=== PATIENT | female | born 1950 | race Caucasian/White ===

== ENCOUNTER → 2018-05-30 14:41 | Outpatient (CLI) | payer OTHER, MEDICAID, SELFPAY ==
--- NOTE | 2018-05-30 14:48 | DI.ECHO.S_ITS ---
[facility] +---------+ : : [address] : : : : [id number] : : : : Phone: [phone] Echocardiogram Report + + :Name: RYAN SKY Study Date: 05/30/2018 Height: 68 in : :[facility] Weight: 165 lb : : Gender: Female BSA: 1.9 m2 : :: 1950 Age: 67 yrs BP: 124/82 mmHg: :Reason For Study: SWELLING OF BOTH ANKLES, FAMILY HX OF HEART : :FAILURE : :Ordering Physician: Bryon : :Desmond Performed By: Adele Liu : :Referring: BRYON CUNNINGHAM : + + Interpretation Summary The left ventricle is normal in size. The ejection fraction is estimated to be 60-65%. The right ventricle is normal size. The right ventricular systolic function is normal. There is mild mitral regurgitation. The right ventricular systolic pressure is estimated to be at least 25 mmHg based on an estimated right atrial pressure of 3 mm Hg. The ascending aorta is mildly enlarged. Procedure: A two-dimensional transthoracic echocardiogram with color flow and Doppler was performed. The study quality was technically adequate. There is no prior echocardiogram noted for this patient. The patient was in normal sinus rhythm during the exam. Left Ventricle: The left ventricle is normal in size. Proximal septal thickening is noted. There is no echo evidence for significant left ventricular outflow tract obstruction. There is no thrombus. The ejection fraction is estimated to be 60-65%. There are no focal wall motion abnormalities. MV E/A: 0.96 Med Peak E' Jp: 4.6 cm/sec E/E' med: 17.3. Right Ventricle: The right ventricle is normal size. The right ventricular systolic function is normal. Atria: The left atrial size is normal. Right atrial size is normal. A prominent eustachian valve is noted. There is no Doppler evidence for an interatrial shunt. The atrial septum is aneurysmal. Mitral Valve: There is mild mitral annular calcification. Redundant elongated chordae are noted. There is mild mitral regurgitation. Aortic Valve: The aortic valve is trileaflet. The aortic valve opens well. There is no aortic valve stenosis. There is trace aortic regurgitation. Tricuspid Valve: The tricuspid valve is normal. There is trace tricuspid regurgitation. The right ventricular systolic pressure is estimated to be at least 25 mmHg based on an estimated right atrial pressure of 3 mm Hg. Pulmonic Valve: The pulmonic valve is not well seen, but is grossly normal. There is trace pulmonic regurgitation. Great Vessels: The aortic root is normal size. The ascending aorta is mildly enlarged. The aortic arch is mildly enlarged. The pulmonary artery is normal size. The IVC is of normal diameter and collapses greater than 50% with a sniff. This suggests a low right atrial pressure of 3 mm Hg. Pericardium/ Pleura There is no pericardial effusion. There is no pleural effusion. MMode/2D Measurements & Calculations LVIDd: 4.1 cm LVOT diam: 2.3 cm LVIDs: 2.5 cm Ao root diam: 3.9 cm FS: 39.4 % asc Aorta Diam: 3.8 cm EPSS: 0.10 cm Ao Arch Diam (Prox Trans): 3.4 cm IVSd: 0.84 cm LVPWd: 0.81 cm LV hill. diameter/BSA (cm/m^2): 2.2 LV sys. diameter/BSA (cm/m^2): 1.3 LA A2 area: 20.3 cm2 RA long axis: 4.6 cm LA A4 area: 16.7 cm2 RA area: 14.1 cm2 LA length (vol): 5.2 cm RA vol: 36.8 ml LA vol: 55.9 ml RA : 19.5 ml/m2 LA vol index: 29.7 ml/m2 IVC diam: 1.9 cm TAPSE: 1.5 cm Doppler Measurements & Calculations Ao V2 max: 110.8 cm/sec LVOT Max Jp: 74.3 cm/sec Ao V2 mean: 81.5 cm/sec LV V1 max P.2 mmHg Ao max P.9 mmHg LV V1 VTI: 16.4 cm Ao mean P.9 mmHg NAT(I,D): 3.0 cm2 Ao V2 VTI: 23.1 cm NAT(V,D): 2.8 cm2 sev ratio: 0.71 NAT indexed to BSA (cm^2/m^2): 1.6 MV E max jp: 80.2 cm/sec TR max jp: 232.5 cm/sec MV A max jp: 83.3 cm/sec TR max P.6 mmHg MV E/A: 0.96 PA V2 max: 59.2 cm/sec Med Peak E' Jp: 4.6 cm/sec PA V2 mean: 36.5 cm/sec E/E' med: 17.3 PA mean P.69 mmHg Lat Peak E' Jp: 6.7 cm/sec PA pr(Accel): 34.1 mmHg E/E' lat: 11.9 E/e' average: 14.6 MV dec time: 0.21 sec Reading Physician:IMELDA
== END ==
PROVIDERS: PCP Family Medicine; Visit Provider Family Medicine
DX: I34.0 Nonrheumatic mitral (valve) insufficiency (principal); M25.471 Effusion, right ankle; M25.472 Effusion, left ankle; Z82.49 Family history of ischemic heart disease and other diseases of the circulatory system
CPT/HCPCS: 93306

== ENCOUNTER → 2019-03-07 07:20 | Outpatient (CLI) | payer OTHER, SELFPAY ==
[2019-03-07 09:02] LABS: Alanine Aminotransferase 8 IU/L (9-52); Albumin 4.1 g/dL (3.5-5.0); Albumin Globulin Ratio 1.4 (1.0-2.8); Alkaline Phosphatase 67 U/L (38-126); Aspartate Aminotransferase 23 IU/L (14-36); Bilirubin Total 0.7 mg/dL (0.2-1.3); Blood Urea Nitrogen 9 mg/dL (7-17); Carbon Dioxide 28 mmol/L (22-32); Chloride 95 mmol/L (98-107); Cholesterol 238 mg/dL (140-199); Estimated Glomerular Filt Rate > 60.0 mL/min (>60); Globulin 2.9 g/dL (1.7-4.1); Glucose 83 mg/dL (80-110); HDL Cholesterol 88 mg/dL (40-60); HEMOLYSIS < 15 (0-50); LDL Cholesterol Calculated 132 mg/dL (<100); Potassium 4.7 mmol/L (3.4-5.1); Sodium 131 mmol/L (137-145); Triglycerides 88 mg/dL (35-150)
[2019-03-07 09:13] LABS: Add Manual Diff / Slide Review NO; Basophils Absolute Auto 100 /uL (0-100); Basophils Percent Auto 1.3 % (0-2); Eosinophils Absolute Auto 200 /uL (0-450); Eosinophils Percent Auto 5.3 % (2-4); Hemoglobin 12.3 g/dL (12.0-16.0); Lymphocytes Absolute Auto 1600 /uL (1100-4500); Lymphocytes Percent Auto 39.8 % (25-40); Mean Corpuscular HGB Conc 33.2 % (30-36); Mean Corpuscular Hemoglobin 31.5 PG (26-34); Mean Corpuscular Volume 94.8 fL (80-100); Monocytes Absolute Auto 300 /uL (0-900); Monocytes Percent Auto 8.3 % (3-14); Neutrophils Absolute Auto 1900 /uL (1500-7000); Neutrophils Percent Auto 45.3 % (50-75); Platelet Count 328 X10^3/uL (150-400); Red Blood Cell Count 3.91 X10^6/uL (4.0-5.2); Red Cell Distribution Width 12.1 % (11.6-14.8); White Blood Cell Count 4.1 X10^3/uL (4.5-11.0)
== END ==
PROVIDERS: PCP Family Medicine; Visit Provider Family Medicine
DX: Z13.220 Encounter for screening for lipoid disorders (principal); R60.0 Localized edema
CPT/HCPCS: 36415; 80053; 80061; 85025

== ENCOUNTER 2020-02-03 19:05 | Emergency (ER) | payer MEDICARE, MEDICAID, SELFPAY ==
[2020-02-03] VITALS (13 sets, daily range): BP systolic 144–164; BP diastolic 75–96; PULSE 79–102; RESP 10–40; TEMP 36.8; O2SAT 97–99; BMI 27.3
--- NOTE | 2020-02-03 19:16 | DI.CT.S_ITS ---
PROCEDURE: CT HEAD/BRAIN WO CON INDICATIONS: stroke symptoms, dizzy, blurred vision TECHNIQUE: Noncontrast 4.5 mm thick angled axial sections acquired from the foramen magnum to the vertex, with coronal and sagittal reformats. For radiation dose reduction, the following was used: automated exposure control, adjustment of mA and/or kV according to patient size. COMPARISON: None. FINDINGS: Image quality: Excellent. CSF spaces: Basal cisterns are patent. No extra-axial fluid collections. The ventricles are symmetric in size and shape. Brain: No intracranial bleeds or masses. There is cerebral volume loss for age, with resultant ventricular and sulcal prominence. There are periventricular and deep white matter chronic small vessel ischemic changes. There is intracranial internal carotid artery atherosclerosis. Skull and face: Calvarium and visualized facial bones appear intact, without suspicious lesions. Sinuses: Visualized sinuses and mastoids are clear. IMPRESSION: No acute intracranial finding. Dictated by: Robbi Spivey M.D. on 02/03/2020 at 19:46 Approved by: Robbi Spivey M.D. on 02/03/2020 at 19:48
[2020-02-03 19:30] LABS: Add Manual Diff / Slide Review NO; Basophils Absolute Auto 100 /uL (0-100); Basophils Percent Auto 1.1 % (0-2); Eosinophils Absolute Auto 200 /uL (0-450); Eosinophils Percent Auto 3.5 % (2-4); Hematocrit 36.1 % (36-46); Hemoglobin 12.2 g/dL (12.0-16.0); Lymphocytes Absolute Auto 2100 /uL (1100-4500); Lymphocytes Percent Auto 36.7 % (25-40); Mean Corpuscular HGB Conc 33.8 % (30-36); Mean Corpuscular Hemoglobin 31.8 PG (26-34); Monocytes Absolute Auto 400 /uL (0-900); Monocytes Percent Auto 7.5 % (3-14); Neutrophils Absolute Auto 3000 /uL (1500-7000); Neutrophils Percent Auto 51.2 % (50-75); Platelet Count 338 X10^3/uL (150-400); Red Blood Cell Count 3.84 X10^6/uL (4.0-5.2); Red Cell Distribution Width 12.4 % (11.6-14.8); White Blood Cell Count 5.8 X10^3/uL (4.5-11.0)
[2020-02-03 19:36] LABS: Prothrombin Time 11.8 SECONDS (10.1-12.7)
--- NOTE | 2020-02-03 19:36 | ED.NEUROSD ---
HPI - Neuro Symptoms/Deficit General Chief Complaint: Neuro Symptoms/Deficit Stated Complaint: dizziness,vision changes,equilibrium off Time Seen by Provider: 02/03/20 19:09 Source: patient Mode of arrival: Wheelchair Limitations: no limitations History of Present Illness HPI Narrative: 69F former smoker with history of peripheral neuropathy and Gino's esophagus presents with the chief complaint of dizziness, blurred vision and trouble with ambulation since yesterday. She additionally has urinary frequency, urgency, and dysuria. She denies focal findings such as numbness, tingling, or weakness. She's had no fever or chills. She denies N/V/D. She denies any new meds or dietary change. She's had no trauma or injury. Her symptoms started yesterday. She was evaluated on scene by medics and encuraged to come here for evaluation Onset (ago): day(s) Timing confirmed by: family member Location: at[place]ia History of same: No Severity: mild Quality: weak and constant Relieving factors: none Exacerbating factors: none On Anticoagulants: No Treatments Prior to Arrival: none Related Data Home Medications Medication Instructions Recorded Confirmed latanoprost [Xalatan] 1 drp OU HS #0 01/27/17 04/06/19 Previous Rx's Medication Instructions Recorded Disabled Parking Permit units #1 05/18/16 timolol maleate 0.5 % eye drops 1 drp EYE-BOTH BID #15 ml 11/07/18 ketoconazole 2 % topical cream 1 applictn TOPICAL BID #30 gram 09/19/19 pantoprazole 40 mg tablet,delayed 40 mg PO DAILY #90 tab 10/08/19 release furosemide 20 mg tablet See Rx Instructions .ROUTE 01/01/20 .COMPLEX #30 tablet Allergies Allergy/AdvReac Type Severity Reaction Status Date / Time morphine [MORPHINE] AdvReac Unknown ITCHY Unverified 04/06/19 13:29 Review of Systems Constitutional Constitutional: Denies chills, Denies fatigue, Denies fever(s), Denies frequent falls, Denies lethargy and Denies weakness Eyes Eyes: Reports change in vision, Denies eye discharge, Denies irritation and Denies loss of vision ENT Ears, Nose, Mouth, and Throat: Denies change in voice, Reports dizziness, Denies neck pain, Denies sore throat and Denies throat swelling Cardiovascular Cardiovascular: Denies chest pain, Denies irregular heart rhythm, Denies lightheadedness, Denies palpitations, Denies dyspnea, Denies dyspnea on exertion and Denies orthopnea Respiratory Respiratory: Denies cough, Denies dyspnea, Denies dyspnea on exertion and Denies wheezing Gastrointestinal Gastrointestinal: Denies abdominal pain, Denies change in bowel habits, Denies diarrhea, Denies nausea and Denies vomiting Musculoskeletal Musculoskeletal: Denies neck pain and Denies numbness Integumentary/Breasts Skin/Breast: Denies pruritus, Denies erythema, Denies rash and Denies wounds Neurologic Neurologic: Denies behavioral changes, Denies confusion, Reports dizziness, Denies frequent falls, Denies loss of vision, Denies numbness and Denies weakness Psychiatric Psychiatric: Denies anxiety, Denies behavioral changes, Denies confusion, Denies depression, Denies homicidal ideation and Denies suicidal ideation Endocrine Endocrine: Denies fatigue, Denies flushing and Denies palpitations Hematologic/Lymphatic Hematologic/Lymphatic: Denies easy bruising Allergic/Immunologic Allergic/Immunologic: Denies urticaria, Denies throat swelling and Denies wheezing Patient History Medical History Barretts esophagus (Chronic) Tbkpgxl-Jgwnz-Qqlfv disease (Chronic) Colon polyps (Chronic) Surgical History History of knee replacement History of knee replacement Status post cholecystectomy Status post colonoscopy Status post endoscopy Status post hernia repair (08/11/89) Status post hysterectomy Family History Father Heart disease Hypertension High cholesterol Stomach cancer Stroke Grandfather CVA (cerebral infarction) Mother Cancer of breast Social History marital status: lives independently: Yes education level: master's degree occupational status: other (retired) Smoking Status: Former smoker Smoking Status: Former smoker alcohol intake frequency: 0-2 drinks per day Substance Use Type: does not use Exam Narrative Exam Narrative: GENERAL: [69] year old patient appears stated age. Well-nourished, well-developed patient, in mild distress. HEAD: Atraumatic. Normocephalic. EYES: Pupils equal round and reactive. Extraocular motions intact. No scleral icterus. No injection or drainage. Pressures OS 14, OD 18 ENT: Nose without bleeding, purulent drainage. Throat without erythema, tonsillar hypertrophy or exudate. Airway patent. NECK: Trachea midline. Non tender CARDIOVASCULAR: Regular rate and rhythm without murmurs, gallops, or rubs. RESPIRATORY: Clear to auscultation. Breath sounds equal bilaterally. No wheezes, rales, or rhonchi. GASTROINTESTINAL: Abdomen soft, non-tender, nondistended. EXTREMITIES: No edema or joint tenderness. BACK: Nontender without deformity or crepitance. No flank tenderness. NEURO: AOx3. SKIN: No rash or erythema of visible areas NIH Stroke Scale 1a. LOC: Patient is alert and keenly responsive (0) 1b. LOC Questions: Patient answers both LOC questions accurately (0) 1c. LOC Commands: Patient performs both tasks correctly (0) 2. Best Gaze: Normal (0) 3. Visual: No visual loss (0) 4. Facial palsy: Normal symmetrical movements (0) 5. Motor arm: No drift (0) 6. Motor leg: No drift (0) 7. Limb ataxia: Absent (0) 8. Sensory: Normal (0) 9. Best language: No aphasia; normal (0) 10. Dysarthria: Normal (0) 11. Extinction and inattention: No abnormality (0) NIHSS: 0 Initial Vital Signs Initial Vital Signs: Vital Signs Blood Pressure 164/96 H 02/03/20 19:15 Course Orders Ordered: Discontinued Medications Sodium Chloride (Normal Saline 0.9%) 1,000 mls @ 150 mls/hr IV CONT ASHLEY Last Admin: 02/03/20 19:36 Dose: Not Given Documented by: LUZ Proparacaine HCl (Parcaine 0.5% Ophth Makayla) 1 drops EYE-BOTH NOW ONE Stop: 02/03/20 21:15 Last Admin: 02/03/20 21:21 Dose: 2 drop Documented by: LUZ Vital Signs Vital signs: Vital Signs - 8 hr 02/03/20 22:44 Respiratory Rate 16 Blood Pressure 162/83 H Pulse Oximetry 97 MDM - Neuro Symptoms/Deficit Lab Data Result diagrams: 02/03/20 19:15 02/03/20 19:15 Labs: Lab Results 02/03/20 02/03/20 02/03/20 Range/Units 19:15 19:15 19:15 WBC 5.8 (4.5-11.0) X10^3/uL RBC 3.84 L (4.0-5.2) X10^6/uL Hgb 12.2 (12.0-16.0) g/dL Hct 36.1 (36-46) % MCV 94.0 (80-100) fL MCH 31.8 (26-34) PG MCHC 33.8 (30-36) % RDW 12.4 (11.6-14.8) % Plt Count 338 (150-400) X10^3/uL Neut % (Auto) 51.2 (50-75) % Lymph % (Auto) 36.7 (25-40) % [place] % (Auto) 7.5 (3-14) % Eos % (Auto) 3.5 (2-4) % Baso % (Auto) 1.1 (0-2) % Neut # (Auto) 3000 (6504-6073) /uL Lymph # (Auto) 2100 (0523-8224) /uL [place] # (Auto) 400 (0-900) /uL Eos # (Auto) 200 (0-450) /uL Baso # (Auto) 100 (0-100) /uL PT 11.8 (10.1-12.7) SECONDS INR 1.0 (0.9-1.3) APTT 31 (26.4-36.2) SECONDS Sodium 129 L (137-145) mmol/L Potassium 4.0 (3.4-5.1) mmol/L Chloride 94 L (98-107) mmol/L Carbon Dioxide 27 (22-32) mmol/L BUN 10 (7-17) mg/dL Creatinine 0.45 L (0.52-1.04) mg/dL Estimated GFR > 60.0 (>60) mL/min BUN/Creatinine Ratio 22.2 H (6-22) Glucose 124 H (80-110) mg/dL Calcium 9.6 (8.4-10.2) mg/dL Urine Dip Bedside Urine Glucose Negative Bedside Urine Bilirubin - Negative Bedside Urine Ketone - Negative Urine Specific [place] 1.005 Bedside Urine Occult Blood - Negative Bedside Urine pH 7.0 Bedside Urine Protein - Negative Bedside Urine Urobilinogen - Negative Bedside Urine Nitrite - Negative Bedside Urine Leukocytes - Negative Esterase MDM Narrative Medical decision making narrative: Multiple etiologies for patient's symptoms considered including: [Stroke versus electrolyte abnormality versus stress reaction versus other] Patient's symptoms improved over duration of stay with above-stated therapies. Findings and discharge diagnosis discussed with patient/family followed by verbalization of understanding Return precautions discussed with patient/family whom verbalize understanding. Discharge Plan Departure Patient Disposition: Home Clinical Impression: Feared complaint without diagnosis, Change in vision Discharge Date/Time: 02/03/20 22:47 Instructions: DI for Visual Field Disturbances Activity Restrictions/Additional Instructions: *You have been diagnosed with [ stress response, vision change. ] *What to do: *Take medications as directed *Follow up with your primary care provider in 2-3 days, call for an appointment. Let them know you were seen in the Emergency Department and that we ask that you be seen in follow up *Return to ER if you should have any new, worsening or concerning symptoms Prescriptions: No Action Disabled Parking Permit Qty: 1 RF: 0 latanoprost [Xalatan] 0.005 % drops 1 drp OU HS Qty: 0 RF: 0 timolol maleate 0.5 % drops 1 drp EYE-BOTH BID Qty: 15 RF: 4 ketoconazole 2 % cream 1 applictn Topical BID Qty: 30 RF: 0 pantoprazole 40 mg tablet,delayed release (DR/EC) 40 mg PO DAILY Qty: 90 RF: 0 furosemide 20 mg tablet See Rx Instructions .ROUTE .COMPLEX Qty: 30 RF: 3 Referrals: Carmen Adame DO [Primary Care Provider] -
[2020-02-03 19:39] LABS: PTT Partial Thromboplastin Tim 31 SECONDS (26.4-36.2)
[2020-02-03 19:40] LABS: BUN Creatinine Ratio 22.2 (6-22); Blood Urea Nitrogen 10 mg/dL (7-17); Calcium 9.6 mg/dL (8.4-10.2); Carbon Dioxide 27 mmol/L (22-32); Chloride 94 mmol/L (98-107); Estimated Glomerular Filt Rate > 60.0 mL/min (>60); Glucose 124 mg/dL (80-110); HEMOLYSIS < 15 (0-50); Sodium 129 mmol/L (137-145)
[2020-02-03] MEDS: PROPARACAINE 0.5% OPHTH SOL 1 DROPS EYE-BOTH (21:21)
--- NOTE | 2020-02-03 21:28 | PC.NURSE ---
Pt states that over the last few days she has had increased blurry vision and has stopped taking her glaucoma meds. pt state she has also been under alot of stress with her sons coming to live [place] with her and increased anxiety. Collin-Pen used by Dr Haywood and- 13 R eye and 18 L eye. Pt examined by Dr Haywood and pt has no loss in any visual field.
--- NOTE | 2020-02-03 21:57 | PC.NURSE ---
Report given to Toribio Cruz, RN
== END 2020-02-03 22:47 | disposition home or self-care (01) ==
PROVIDERS: Emergency Provider Emergency Medicine; PCP Family Medicine
DX: H53.9 Unspecified visual disturbance (principal); R42 Dizziness and giddiness; R30.0 Dysuria; R29.818 Other symptoms and signs involving the nervous system
CPT/HCPCS: 36415; 70450; 80048; 81003; 85025; 85610; 85730; 93005; 99284; 99285

== ENCOUNTER → 2021-12-08 08:19 | Outpatient (CLI) | payer MEDICARE, MEDICAID, SELFPAY ==
[2021-12-08 08:55] LABS: Add Manual Diff / Slide Review NO; Basophils Absolute Auto 100 /uL (0-100); Basophils Percent Auto 0.8 % (0-2); Eosinophils Absolute Auto 100 /uL (0-450); Eosinophils Percent Auto 1.6 % (2-4); Hematocrit 37.2 % (36-46); Hemoglobin 12.6 g/dL (12.0-16.0); Lymphocytes Absolute Auto 1800 /uL (1100-4500); Lymphocytes Percent Auto 24.9 % (25-40); Mean Corpuscular HGB Conc 33.9 % (30-36); Mean Corpuscular Volume 91.3 fL (80-100); Monocytes Absolute Auto 300 /uL (0-900); Monocytes Percent Auto 4.6 % (3-14); Neutrophils Absolute Auto 5000 /uL (1500-7000); Neutrophils Percent Auto 68.1 % (50-75); Platelet Count 326 X10^3/uL (150-400); Red Blood Cell Count 4.08 X10^6/uL (4.0-5.2); Red Cell Distribution Width 12.8 % (11.6-14.8); White Blood Cell Count 7.3 X10^3/uL (4.5-11.0)
[2021-12-08 09:14] LABS: Alanine Aminotransferase 15 IU/L (<35); Albumin 4.1 g/dL (3.5-5.0); Albumin Globulin Ratio 1.5 (1.0-2.8); Alkaline Phosphatase 87 U/L (38-126); Aspartate Aminotransferase 25 IU/L (14-36); Bilirubin Total 0.7 mg/dL (0.2-1.3); Blood Urea Nitrogen 12 mg/dL (7-17); Calcium 9.6 mg/dL (8.4-10.2); Carbon Dioxide 26 mmol/L (22-32); Chloride 99 mmol/L (98-107); Estimated Glomerular Filt Rate > 60 mL/min (>60); Globulin 2.8 g/dL (1.7-4.1); Glucose 88 mg/dL (80-110); HEMOLYSIS < 15 (0-50); Potassium 4.8 mmol/L (3.4-5.1); Sodium 132 mmol/L (137-145); Total Protein 6.9 g/dL (6.3-8.2)
== END ==
PROVIDERS: PCP Family Medicine; Referring Provider Family Medicine; Visit Provider Family Medicine
DX: R73.09 Other abnormal glucose (principal); K22.70 Barrett's esophagus without dysplasia; N28.9 Disorder of kidney and ureter, unspecified
CPT/HCPCS: 36415; 80053; 85025

== ENCOUNTER 2022-05-18 07:50 | Day surgery (SDC) | payer MEDICARE, MEDICAID, SELFPAY ==
[2022-05-13 15:13] VITALS: BMI 23.8
[2022-05-18] VITALS (8 sets, daily range): BP systolic 112–150; BP diastolic 73–84; PULSE 75–85; RESP 13–21; TEMP 36.5–36.6; O2SAT 96–99; BMI 23.8
[2022-05-18] MEDS: LACTATED RINGERS 1,000 ML 42 ML IV (08:13)
[2022-05-18 08:27] LABS: COVID19 -Nasal RAPID Negative (Negative)
--- NOTE | 2022-05-18 09:12 | PM.HP.1 ---
History of Present Illness History of Present Illness Chief complaint: Open Lt Inguinal or Femoral Hernia Repair Narrative: Ms. Blackwell was seen in my on April 13 with an inguinal hernia. On exam, I am thinking its femoral, but often cant be sure until dissection. [place] son will be with her for the next few days. She is eager to return home tonight. Shes had no changes In her health since seen in the office. She feels like she is overall doing fairly well. She is weak and debilitated with her neurologic disease that is underlying. However the hernia is continuing to be troublesome for her and she understands the risks benefits and alternatives that we discussed in the office and would like to proceed. Patient History Medical History Barretts esophagus Wgcnzck-Jqemx-Lhdko disease Colon polyps Depression Glaucoma Scoliosis Surgical History History of knee replacement History of knee replacement Status post cholecystectomy Status post colonoscopy Status post endoscopy Status post hernia repair (08/11/89) Status post hysterectomy Family & Social History Family History Father Heart disease Hypertension High cholesterol Stomach cancer Stroke Grandfather CVA (cerebral infarction) Mother Cancer of breast Social History: household members family lives independently Yes Tobacco & Substance use: Tobacco type cannabis/marijuana Smoking Status Current every day smoker alcohol intake current alcohol intake frequency 0-2 drinks per day Substance Use Type marijuana Meds Home Medications and Allergies Home Medications Medication Instructions Recorded Confirmed Type Disabled Parking Permit units ##1 05/18/16 04/13/22 Rx latanoprost 0.005 % eye drops 1 drp OU HS ##0 01/27/17 05/18/22 History (Xalatan) ketoconazole 2 % topical cream See Rx Instructions .Route 11/26/20 05/13/22 Rx .COMPLEX #30 grams timolol maleate 0.5 % eye drops 1 drp EYE-BOTH BID #15 mL 08/19/21 05/18/22 Rx Disabled parking #1 ea 08/21/21 04/13/22 Rx furosemide 20 mg tablet 20 mg PO DAILY PRN edema #30 tabs 11/02/21 05/18/22 Rx pantoprazole 40 mg tablet,delayed See Rx Instructions .Route 11/13/21 05/18/22 Rx release .COMPLEX #90 tabs Exam Vital Signs (past 8 hours): - 05/18/22 08:14 Temperature 98 F Pulse Rate 85 Respiratory Rate 16 Blood Pressure 150/77 H Pulse Oximetry 99 Oxygen Delivery Method Room Air Oxygen Delivery Method Room Air Const General: cooperative and comfortable HENMT Head: normal to inspection Resp Effort & Inspection: normal respiratory effort and able to speak in complete sentences Cardio Pulses: radial pulses present GI Palpation: soft, hernia (Left inguinal hernia palpable on exam, reducible.) and No tender Skin General: no rashes or lesions noted Neuro Gait: normal gait (Weakness of all extremities walking with assistive devices) Objective Labs Labs: Laboratory Results - last 24 hr 05/18/22 07:58 SARS-CoV-2 (PCR) Negative Assessment & Plan Assessment and plan (1) Femoral hernia of left side without obstruction or gangrene: Status: Acute Assessment & Plan narrative: I discussed the risks of hernia repair once again with Ms. Blackwell. She understands and would like to proceed. She had no further questions or concerns Time Spent With Patient Critical Care time: I spent a total of [] minutes of critical care time on this patient's care today; this time is exclusive of procedural time.
[2022-05-18] MEDS: CEFAZOLIN 2 GM/100 ML PREMIX 100 ML IV (09:45)
--- NOTE | 2022-05-18 09:58 | SUR.OPER ---
Supine on padded OR bed, head on pillow, arms secured on padded arm boards at <90 degrees abduction, legs uncrossed, safety belt at thigh
[2022-05-18] MEDS: BUPIVACAINE 0.25% (PF) VIAL 30 ML INJ ×2 (10:10)
[2022-05-18] MEDS: BUPIVACAINE 0.5% (PF) 30 ML, EPINEPHrine 0.15 MG INJ (10:23)
--- NOTE | 2022-05-18 11:17 | P.OP_ITS ---
Procedure & Clinicians Procedure: femoral hernia repair Same procedure as scheduled: Yes Indications: Symptomatic reducible inguinal hernia Surgeon: Martha Irizarry Click Yes if Unassisted: Yes Anesthesia Type: MAC +/- Operative Notes Findings: Patient was taken to the operating room and placed in a supine position. A time-out was performed. Bilateral SCDs were in place. Preoperative antibiotics were administered. The left inguinal area was prepped and draped in the usual sterile fashion. Local anesthesia with bupivacaine was used to create a local block. Fifteen blade scalpel used to incise the skin and carry this incision down through the subcutaneous tissues. The superficial epigastric vessel was do ubly tied and ligated. The external oblique fascia was opened along its fibers. The inguinal canal was identified and the hernia seemed to have a direct component. But also there was a space below the inguinal ligament where I believe the major portion of the hernia was femoral hernia. A large mesh plug was was placed into the hernia cavity. It was spread out to cover the femoral space. It was tacked into place with 1 Prolene suture at the Obed's ligament and a 2nd 1 in the external oblique. The mesh was well-positioned and secure. The operative site was hemostatic. The external oblique fascia was closed with the 2-0 Vicryl suture in a running fashion. Interrupted 3-0 Vicryl sutures were used to close the subcutaneous tissues. And a running 4-0 Monocryl was used to close the skin. The skin was dressed with Steri-Strips. The top patient tolerated the procedure well and went in good condition to the postoperative care unit there were no complications. Complications: none Post-operative Condition: stable Disposition: PACU
== END 2022-05-18 11:45 | disposition home or self-care (01) ==
PROVIDERS: PCP Family Medicine; Referring Provider Surgery; Visit Provider Surgery
PROC: (CPT 49550; principal; 2022-05-18 09:15)
DX: K41.90 Unilateral femoral hernia, without obstruction or gangrene, not specified as recurrent (principal); K40.90 Unilateral inguinal hernia, without obstruction or gangrene, not specified as recurrent; Z20.822 Contact with and (suspected) exposure to COVID-19
CPT/HCPCS: 49550; 87635; C9803; J0171; J0690; J2704

== ENCOUNTER 2022-07-20 09:02 | Day surgery (SDC) | payer MEDICARE, MEDICAID, SELFPAY ==
[2022-07-14 13:33] VITALS: BMI 24.0
[2022-07-20 09:36] LABS: COVID19 -Nasal RAPID Negative (Negative)
[2022-07-20 09:39] VITALS: BP 148/83; PULSE 76; RESP 16; TEMP 36.7; O2SAT 100; BMI 24.0
[2022-07-20] MEDS: LACTATED RINGERS 1,000 ML 42 ML IV (09:56)
--- NOTE | 2022-07-20 10:15 | PM.HP.1 ---
History of Present Illness History of Present Illness Chief complaint: Hernia Repair - Inguinal Narrative: Ms. Blackwell is a patient well known to me she has a recurrent left inguinal hernia. She describes no change in symptoms, no concerning symptoms, minimal pain since having been seen in the office. Patient History Medical History (Updated 06/02/22 @ 11:48 by Martha Irizarry MD) Barretts esophagus Weyixnn-Bpgab-Asirc disease Colon polyps Depression Glaucoma Scoliosis Surgical History (Updated 06/10/22 @ 08:29 by Veronica Joyce RN) History of knee replacement History of knee replacement Hx of hernia repair (05/18/22) Status post cholecystectomy Status post colonoscopy Status post endoscopy Status post hernia repair (08/11/89) Status post hysterectomy Family & Social History Family History Father Heart disease Hypertension High cholesterol Stomach cancer Stroke Grandfather CVA (cerebral infarction) Mother Cancer of breast Social History: household members family lives independently Yes Tobacco & Substance use: Tobacco type cannabis/marijuana Smoking Status Current every day smoker alcohol intake current alcohol intake frequency 0-2 drinks per day Substance Use Type marijuana Meds Home Medications and Allergies Home Medications Medication Instructions Recorded Confirmed Type Disabled Parking Permit units ##1 05/18/16 06/01/22 Rx latanoprost 0.005 % eye drops 1 drp OU HS ##0 01/27/17 07/20/22 History (Xalatan) ketoconazole 2 % topical cream See Rx Instructions .Route 11/26/20 07/20/22 Rx .COMPLEX #30 grams Disabled parking #1 ea 08/21/21 06/01/22 Rx pantoprazole 40 mg tablet,delayed See Rx Instructions .Route 11/13/21 07/20/22 Rx release .COMPLEX #90 tabs docusate sodium 100 mg capsule 100 mg PO BID #14 caps 05/18/22 06/10/22 Rx (Colace) tramadol 50 mg tablet 50 mg PO Q8H PRN pain #20 tabs 05/18/22 07/20/22 Rx furosemide 20 mg tablet See Rx Instructions .Route 05/31/22 07/20/22 Rx .COMPLEX #30 tabs timolol maleate 0.5 % eye drops 1 drp EYE-BOTH BID #15 mL 06/11/22 07/20/22 Rx Allergies Allergy/AdvReac Type Severity Reaction Status Date / Time No Known Drug Allergies Allergy Verified 07/20/22 09:23 Exam Vital Signs (past 8 hours): - 07/20/22 09:39 Temperature 98.1 F Pulse Rate 76 Respiratory Rate 16 Blood Pressure 148/83 H Pulse Oximetry 100 Oxygen Delivery Method Room Air Oxygen Delivery Method Room Air Const General: cooperative, healthy appearing and comfortable Other: Frail with motor limitations Resp Effort & Inspection: normal respiratory effort and able to speak in complete sentences Cardio Pulses: radial pulses present GI Other: Left inguinal hernia present. Previous incisional hernia scar is well healed. No femoral hernia. Objective Labs Labs: Laboratory Results - last 24 hr 07/20/22 09:20 SARS-CoV-2 (PCR) Negative Assessment & Plan Assessment and plan (1) Recurrent left inguinal hernia: Status: Acute Assessment & Plan narrative: I discussed risks benefits and alternatives of open hernia repair under local and monitored anesthetic care. And did very very well with the previous recovery and understands the risks which I discussed again in detail. Including bleeding infection injury and need for further operations or hospitalizations. She understands and wishes to proceed. Time Spent With Patient Critical Care time: I spent a total of [] minutes of critical care time on this patient's care today; this time is exclusive of procedural time.
[2022-07-20] MEDS: CEFAZOLIN 2 GM/100 ML PREMIX 100 ML IV (10:35)
--- NOTE | 2022-07-20 10:49 | SUR.OPER ---
Supine on padded OR bed, head on pillow, arms secured on padded arm boards at <90 degrees abduction, legs uncrossed, safety belt at thigh.
[2022-07-20] MEDS: BUPIVACAINE 0.5% W/ EPI (PF) 30 ML VIAL INJ (10:58)
[2022-07-20 11:58] VITALS: BP 117/64; PULSE 65; RESP 11; TEMP 36.3; O2SAT 95
[2022-07-20 12:04] VITALS: BP 119/63; PULSE 87; RESP 15; O2SAT 93
--- NOTE | 2022-07-20 12:06 | PM.OP.1 ---
Procedure & Clinicians Procedure: Recurrent Left inguinal hernia repair Same procedure as scheduled: Yes Indications: Ms. Blackwell underwent a femoral hernia repair a few months ago and has had a recurrent inguinal hernia since then. Surgeon: Martha Irizarry Click Yes if Unassisted: Yes Anesthesia Type: MAC +/- and Local Operative Notes Findings: Patient was taken to the operating room and placed supine on the operating room table. Bilateral SCDs were placed. Preoperative antibiotics administered. A time-out was performed. Monitored anesthetic care was performed and local anesthetic used to create a iliohypogastric block as well as infusing around the area locally. 2% bupivacaine with epinephrine was used. An incision was made over the inguinal canal and carried down through the subcutaneous tissue using electrocautery and Metzenbaum scissors. The anterior oblique fascia was identified elevated and incised with Metzenbaum scissors. The fascia was opened to the external canal medially and laterally past the internal ring. These 2 structures were identified. A large hernia space was seen in the indirect space. The pubic tubercle was palpated a flat mesh was attached to the Obed's ligament. Using a 3-0 Prolene of the inferior edge of the mesh was attached to the inguinal ligament using a running suture. Next the mesh was cut to cover entirely the direct and indirect spaces. Few interrupted 2-0 Vicryl sutures were used to tack the superior portion of the mesh. These were tied loosely. Next the external oblique fascia was closed with a running 3-0 Prolene. The subcutaneous tissues were closed with interrupted 3-0 Vicryl sutures and the skin was closed with a running 4-0 Monocryl. Throughout the procedure additional local anesthetic was infused. Patient tolerated the procedure very well there was minimal blood loss and no complications. The patient went in good condition to the postoperative care unit. Specimen(s): none sent
[2022-07-20 12:10] VITALS: BP 127/75; PULSE 69; RESP 14; O2SAT 98
[2022-07-20] MEDS: OXYCODONE IR 5 MG TABLET PO (12:17)
[2022-07-20] MEDS: ONDANSETRON 4 MG/2 ML INJ IV (12:17)
[2022-07-20 12:22] VITALS: BP 129/58; PULSE 68; RESP 16; TEMP 36.7; O2SAT 98
--- NOTE | 2022-07-20 12:33 | SUR.PHASEII ---
Called Dr Irizarry to clarify prescription for Arlyn from [facility]. Tramadol 1-2 tabs every 8 hours as needed for pain.
== END 2022-07-20 12:53 | disposition home or self-care (01) ==
PROVIDERS: PCP Family Medicine; Referring Provider Surgery; Visit Provider Surgery
PROC: (CPT 49520; principal; 2022-07-20 09:45)
DX: K40.91 Unilateral inguinal hernia, without obstruction or gangrene, recurrent (principal); Z20.822 Contact with and (suspected) exposure to COVID-19
CPT/HCPCS: 49520; 87635; J0690; J2405; J2704; J3010

== ENCOUNTER → 2022-11-23 09:19 | Outpatient (CLI) | payer MEDICARE, MEDICAID, SELFPAY ==
[2022-11-23 11:05] LABS: Add Manual Diff / Slide Review NO; Basophils Absolute Auto 0 /uL (0-100); Basophils Percent Auto 0.9 % (0-2); Eosinophils Absolute Auto 100 /uL (0-450); Eosinophils Percent Auto 2.1 % (2-4); Hematocrit 37.1 % (36-46); Hemoglobin 12.6 g/dL (12.0-16.0); Lymphocytes Absolute Auto 1600 /uL (1100-4500); Lymphocytes Percent Auto 31.2 % (25-40); Mean Corpuscular Hemoglobin 31.8 PG (26-34); Mean Corpuscular Volume 93.5 fL (80-100); Monocytes Absolute Auto 300 /uL (0-900); Monocytes Percent Auto 6.2 % (3-14); Neutrophils Absolute Auto 3100 /uL (1500-7000); Neutrophils Percent Auto 59.6 % (50-75); Platelet Count 333 X10^3/uL (150-400); Red Blood Cell Count 3.97 X10^6/uL (4.0-5.2); Red Cell Distribution Width 12.4 % (11.6-14.8); White Blood Cell Count 5.2 X10^3/uL (4.5-11.0)
[2022-11-23 11:26] LABS: Alanine Aminotransferase 20 IU/L (<35); Albumin 4.2 g/dL (3.5-5.0); Albumin Globulin Ratio 1.5 (1.0-2.8); Alkaline Phosphatase 70 U/L (38-126); Aspartate Aminotransferase 26 IU/L (14-36); Bilirubin Total 0.6 mg/dL (0.2-1.3); Blood Urea Nitrogen 12 mg/dL (7-17); Calcium 9.6 mg/dL (8.4-10.2); Carbon Dioxide 29 mmol/L (22-32); Chloride 98 mmol/L (98-107); Cholesterol 227 mg/dL (140-199); Estimated Glomerular Filt Rate > 60 mL/min (>60); Globulin 2.8 g/dL (1.7-4.1); Glucose 96 mg/dL (80-110); HDL Cholesterol 85 mg/dL (40-60); HEMOLYSIS < 15 (0-50); LDL Cholesterol Calculated 125 mg/dL (<100); Potassium 4.7 mmol/L (3.4-5.1); Sodium 132 mmol/L (137-145); Triglycerides 84 mg/dL (35-150)
== END ==
PROVIDERS: PCP Family Medicine; Referring Provider Family Medicine; Visit Provider Family Medicine
DX: G62.9 Polyneuropathy, unspecified (principal); M15.9 Polyosteoarthritis, unspecified
CPT/HCPCS: 36415; 80053; 80061; 85025

== ENCOUNTER 2023-05-27 10:52 | Day surgery (SDC) | payer MEDICARE, SELFPAY ==
[2023-05-24 15:18] VITALS: BMI 23.7
[2023-05-27] VITALS (10 sets, daily range): BP systolic 116–149; BP diastolic 64–86; PULSE 60–74; RESP 12–22; TEMP 36.1–36.7; O2SAT 92–98; BMI 23.0
[2023-05-27] MEDS: LACTATED RINGERS 1,000 ML 21 ML IV (11:22)
--- NOTE | 2023-05-27 12:26 | PM.PREOP ---
Pre-operative Note Interval Note History & Physical reviewed/Exam performed by Physician: Yes Changes to H&P: No
[2023-05-27] MEDS: CEFAZOLIN 2 GM/100 ML PREMIX 100 ML IV (12:43)
--- NOTE | 2023-05-27 13:20 | SUR.OPER ---
Supine on padded OR bed, head on pillow, safety belt at thigh, left arm padded and tucked at side. Right arm secured on padded arm board <90 degrees abduction. Legs uncrossed. Padded footboard in place. Tape over blanket to secure lower legs.
--- NOTE | 2023-05-27 13:53 | SUR.OPER ---
Supine on padded OR bed, head on pillow, arms secured on padded arm boards at <90 degrees abduction, legs uncrossed, safety belt at thigh, tape over blanket over lower legs. converted to open inguinal hernia case. pt re positioned and draped
[2023-05-27] MEDS: BUPIVACAINE 0.25% (PF) VIAL 30 ML INJ (13:58)
[2023-05-27] MEDS: ACETAMINOPHEN 325 MG TABLET 975 MG PO (14:59)
[2023-05-27] MEDS: KETOROLAC 30 MG/ML VIAL 15 MG IV (15:00)
[2023-05-27] MEDS: HYDROMORPHONE 1 MG INJ IV ×3 (15:06→15:18)
[2023-05-27] MEDS: OXYCODONE IR 5 MG TABLET PO ×2 (15:07→15:37)
[2023-05-27] MEDS: ONDANSETRON 4 MG/2 ML INJ IV (15:24)
--- NOTE | 2023-05-27 16:25 | SUR.PHASEII ---
1625 - pt rests quietly in bed. resp even, unlabored. vss. family informed of pts progress.
--- NOTE | 2023-05-27 17:46 | PM.OP.1 ---
Operative Date/Time/Diagnoses Date of procedure: 05/27/23 Time of procedure: 17:46 Pre-op diagnosis: Recurrent left inguinal hernia. Post-op diagnosis: same Procedure & Clinicians Procedure: Diagnostic laparoscopy Open repair of recurrent inguinal hernia Same procedure as scheduled: Yes Indications: 72-year-old woman history of a previous laparotomy who has undergone 2 open left inguinal hernia repairs with a symptomatic inguinal hernia Surgeon: Allen Fajardo Click Yes if Unassisted: Yes Anesthesia Type: General Operative Notes Findings: bowel containing left direct inguinal defect. Innumerable intra abdominal adhesions in particular within the pelvis obstructing access to the left inguinal space. Specimen(s): none sent Estimated Blood Loss (mL): 50 Procedure in detail: Patient was brought to the operating room placed supine on the table. Bilateral lower extremity compression devices were applied. General anesthesia was induced he was intubated with an endotracheal tube. She received antibiotic prior to skin incision. She was then prepped and draped in sterile fashion and a time-out was performed. We began with a supraumbilical incision. The skin was incised the fascia elevated and then sharply incised the and the abdomen was entered atraumatically. A 12 mm balloon trocar was then placed into the abdomen and pneumoperitoneum was established. General inspection of the abdomen was made. There were innumerable intra abdominal adhesions and particularly dense in the pelvis. Left-sided 5 mm trocar was safely placed under direct visualization just lateral to the rectus muscle. Further inspection demonstrated a large direct left inguinal defect containing bowel. There was no safe way to access the left groin laparoscopically. I considered performing an extensive lysis of adhesions but I estimated that she was at extremely high risk of inadvertent intestinal injury. Therefore we decided to approach the hernia through an open approach. Left inguinal incision was made and subcutaneous tissue was divided. The external oblique was opened along the direction of its fibers. The entirety of the canal floor was obliterated. The prior mesh that had been placed had formed a meshoma that was displaced and not providing coverage of the floor. The surrounding tissues were extremely attenuated and given that she had 2 prior failures at open repair I proceeded to perform a posterior repair through an open approach. The floor of the canal was carefully opened we remained extra peritoneal and the intra-abdominal content was retracted and the myopectineal orifice was exposed using blunt dissection. A large Bard 3D max left mesh was then placed into position so that the entirety of the orifice was covered. Using a Ethibond suture the mesh was tacked to Obed's ligament. Hemostasis was checked. The floor of the inguinal canal was then closed using a Vicryl suture over the mesh. The external oblique ligament was reapproximated with a running Vicryl and the skin was closed with Monocryl followed by the application of Dermabond. She tolerated the procedure well was extubated and transferred to recovery in stable condition. Complications: none Post-operative Condition: stable Disposition: same day surgery
== END 2023-05-27 17:30 | disposition home or self-care (01) ==
PROVIDERS: PCP Family Medicine; Referring Provider Surgery; Visit Provider Surgery
PROC: 0YQ64ZZ Repair Left Inguinal Region, Percutaneous Endoscopic Approach (ICD-10-PCS; CPT 49520; principal; 2023-05-27 12:30)
DX: K40.91 Unilateral inguinal hernia, without obstruction or gangrene, recurrent (principal); N73.6 Female pelvic peritoneal adhesions (postinfective)
CPT/HCPCS: 49520; 82962; J0690; J1100; J1170; J1885; J2405; J2704; J3010

== ENCOUNTER 2023-05-28 12:30 | Inpatient (IN) | payer MEDICARE, SELFPAY ==
[2023-05-28] VITALS (55 sets, daily range): BP systolic 136–173; BP diastolic 67–98; PULSE 84–148; RESP 12–35; TEMP 36.1–36.9; O2SAT 89–97; BMI 22.9
[2023-05-28 12:50] LABS: Add Manual Diff / Slide Review NO; Basophils Absolute Auto 0 /uL (0-100); Eosinophils Absolute Auto 0 /uL (0-450); Hematocrit 35.9 % (36-46); Lymphocytes Absolute Auto 600 /uL (1100-4500); Lymphocytes Percent Auto 5.1 % (25-40); Mean Corpuscular HGB Conc 33.5 % (30-36); Mean Corpuscular Hemoglobin 31.8 PG (26-34); Mean Corpuscular Volume 94.9 fL (80-100); Monocytes Absolute Auto 600 /uL (0-900); Monocytes Percent Auto 5.3 % (3-14); Neutrophils Absolute Auto 10000 /uL (1500-7000); Neutrophils Percent Auto 89.6 % (50-75); Platelet Count 322 X10^3/uL (150-400); Red Blood Cell Count 3.79 X10^6/uL (4.0-5.2); Red Cell Distribution Width 12.5 % (11.6-14.8); White Blood Cell Count 11.2 X10^3/uL (4.5-11.0)
[2023-05-28] MEDS: PANTOPRAZOLE 40 MG VIAL IV ×2 (12:50→20:23)
[2023-05-28 12:55] LABS: INR 1.2 (0.9-1.3); Prothrombin Time 13.7 SECONDS (9.4-12.5)
--- NOTE | 2023-05-28 12:56 | PC.NURSE ---
Pt had recent inguinal hernia repair with Dr Fajardo on 05/26/2023. Pt reports that this is her 3rd hernia surgery. Previous surgeries done with Dr Irizarry at [facility]. Pt reports that she was having several blood-tinged emesis and abd pain following being home from the hospital. Pt is nauseous and having 6/10 pain that she describes as throbbing and tender to touch on palpation. A&Ox4. VS WNL.
[2023-05-28 12:57] LABS: PTT Partial Thromboplastin Tim 25 SECONDS (25.1-36.5)
[2023-05-28 13:00] LABS: Alanine Aminotransferase 20 IU/L (<35); Albumin 3.9 g/dL (3.5-5.0); Albumin Globulin Ratio 1.3 (1.0-2.8); Alkaline Phosphatase 42 U/L (38-126); Aspartate Aminotransferase 26 IU/L (14-36); BUN Creatinine Ratio 34.7 (6-22); Blood Urea Nitrogen 17 mg/dL (7-17); Calcium 10.1 mg/dL (8.4-10.2); Carbon Dioxide 28 mmol/L (22-32); Chloride 93 mmol/L (98-107); Estimated Glomerular Filt Rate > 60 mL/min (>60); Globulin 2.9 g/dL (1.7-4.1); Glucose 164 mg/dL (80-110); HEMOLYSIS < 15 (0-50); Lipase 45 U/L (23-300); Sodium 129 mmol/L (137-145); Total Protein 6.8 g/dL (6.3-8.2)
--- NOTE | 2023-05-28 13:00 | ED.GENADULT ---
HPI - General Adult General Chief complaint: Abdominal Pain Stated complaint: GI bleed/post hernia surgery Time Seen by Provider: 05/28/23 12:34 Source: patient and EMS Mode of arrival: EMS History of Present Illness HPI narrative: Patient is a 72-year-old female. Yesterday she underwent a outpatient scheduled laparoscopic left inguinal hernia repair. She was discharged home afterwards. This morning she woke up with quite a bit of nausea and vomiting. Has vomited several times. The last several times had some blood and potentially dark-colored emesis. She was unable to eat or drink anything because of the nausea. She does have some lower abdominal tenderness. Has some swelling now in the left lower abdomen. No urinary symptoms. She did receive Zofran by EMS prior to arrival. Related Data Home Medications Medication Instructions Recorded Confirmed latanoprost 0.005 % eye drops 1 drp OU HS ##0 01/27/17 05/27/23 (Xalatan) Previous Rx's Medication Instructions Recorded ketoconazole 2 % topical cream See Rx Instructions .Route 11/26/20 .COMPLEX #30 grams Disabled parking #1 ea 08/21/21 timolol maleate 0.5 % eye drops 1 drp EYE-BOTH BID #15 mL 06/11/22 pantoprazole 40 mg tablet,delayed See Rx Instructions .Route 11/05/22 release .COMPLEX #90 tabs furosemide 20 mg tablet 20 mg PO DAILY PRN for edema #30 03/03/23 tabs acetaminophen 325 mg capsule 650 mg (2 x 325 mg) PO QID PRN 05/27/23 (Tylenol) pain #60 caps docusate sodium 100 mg capsule 100 mg PO BID #30 caps 05/27/23 (Colace) ibuprofen 200 mg tablet 400 mg (2 x 200 mg) PO Q6H #60 tabs 05/27/23 Allergies Allergy/AdvReac Type Severity Reaction Status Date / Time No Known Drug Allergies Allergy Verified 05/27/23 11:27 Review of Systems Cardiovascular Cardiovascular: Reports system reviewed and no additional complaints, except as documented Respiratory Respiratory: Reports system reviewed and no additional complaints, except as documented Gastrointestinal Gastrointestinal: Reports system reviewed and no additional complaints, except as documented Musculoskeletal Musculoskeletal: Reports system reviewed and no additional complaints, except as documented Integumentary/Breasts Skin/Breast: Reports system reviewed and no additional complaints, except as documented Neurologic Neurologic: Reports system reviewed and no additional complaints, except as documented Hematologic/Lymphatic On Anticoagulants: No Patient History Medical History Scoliosis Glaucoma Depression Uvlxipt-Gskng-Mezlc disease Colon polyps Barretts esophagus Surgical History (Updated 05/24/23 @ 15:25 by Veronica Joyce RN) Hx of hernia repair (07/20/22) Hx of hernia repair (05/18/22) Status post endoscopy Status post colonoscopy History of knee replacement History of knee replacement Status post cholecystectomy Status post hernia repair (08/11/89) Status post hysterectomy Family History Father Heart disease Hypertension High cholesterol Stomach cancer Stroke Grandfather CVA (cerebral infarction) Mother Cancer of breast Social History marital status: household members: family lives independently: Yes education level: master's degree occupational status: other Smoking Status: Current every day smoker alcohol intake: current Smoking Status: Current every day smoker alcohol intake frequency: 0-2 drinks per day Substance Use Type: marijuana Exam Initial Vital Signs Initial Vital Signs: Vital Signs Pulse Rate 106 H 05/28/23 12:38 Pulse Oximetry 96 05/28/23 12:38 Const General: cooperative, comfortable and No ill appearing HENMT Head: normal to inspection Resp Effort & Inspection: normal respiratory effort Auscultation: clear to auscultation bilaterally Cardio Rate: regular rate Rhythm: regular rhythm GI Other: Surgical incisions appear well. No dehiscence. She does have a swelling along the left lower quadrant incision that does seem to be subcutaneous in nature. Skin General: no rashes or lesions noted Neuro General: patient alert, patient awake and moves all extremities Extrem General: normal to inspection and capillary refill normal Course Orders Ordered: ED Orders 05/28/23 12:39 Complete Blood Count AUTO DIFF Stat Comprehensive Metabolic Panel Stat Lipase Stat PTT Partial Thromboplastin Dean Stat Prothrombin Time INR Stat Type and Screen Stat 05/28/23 13:00 CT abdomen pelvis w con Stat 05/28/23 13:58 EKG-12 Lead Stat 05/28/23 14:15 EKG-12 Lead Routine 05/28/23 14:25 Hemoglobin and Hematocrit Stat Discontinued Medications Sodium Chloride (Normal Saline 0.9%) 1,000 mls @ 1,000 mls/hr IV BOLUS ONE Stop: 05/28/23 14:00 Last Infusion: 05/28/23 14:25 Dose: Infused Documented By: Admin: 05/28/23 13:11 Dose: 1,000 mls/hr Documented By: ESME Metoprolol Tartrate (Metoprolol Ir 25 Mg Tablet) 25 mg PO NOW ONE Stop: 05/28/23 14:16 Last Admin: 05/28/23 14:26 Dose: 25 mg Documented By: ESME Morphine Sulfate (Morphine 4 Mg/Ml Inj) 4 mg IV NOW ONE Stop: 05/28/23 13:48 Last Admin: 05/28/23 13:51 Dose: 4 mg Documented By: ESME Ondansetron HCl (Ondansetron 4 Mg/2 Ml Inj) 4 mg IV NOW ONE Stop: 05/28/23 13:02 Last Admin: 05/28/23 13:11 Dose: 4 mg Documented By: ESME Pantoprazole Sodium (Pantoprazole 40 Mg Vial) 40 mg IV NOW ONE Stop: 05/28/23 12:37 Last Admin: 05/28/23 12:50 Dose: 40 mg Documented By: ESME Vital Signs Vital signs: Vital Signs - 8 hr 05/28/23 12:38 05/28/23 12:39 05/28/23 12:39 Temperature Pulse Rate 106 H 105 H Respiratory Rate Blood Pressure 173/81 H Pulse Oximetry 96 96 Oxygen Delivery Method 05/28/23 12:40 05/28/23 13:00 05/28/23 13:00 Temperature 98.5 F Pulse Rate 101 H 98 H Respiratory Rate 16 18 Blood Pressure 173/81 H 162/75 H Pulse Oximetry 96 97 Oxygen Delivery Method Room Air 05/28/23 13:26 05/28/23 13:26 05/28/23 13:30 Temperature Pulse Rate 102 H 95 H Respiratory Rate 26 H 14 Blood Pressure 150/83 H Pulse Oximetry 94 92 Oxygen Delivery Method 05/28/23 13:30 05/28/23 13:35 05/28/23 13:35 Temperature Pulse Rate 100 H Respiratory Rate 18 Blood Pressure 142/69 H 143/67 H Pulse Oximetry 93 Oxygen Delivery Method 05/28/23 13:40 05/28/23 13:45 05/28/23 13:50 Temperature Pulse Rate 94 H 95 H 103 H Respiratory Rate 14 18 23 Blood Pressure Pulse Oximetry 95 96 96 Oxygen Delivery Method 05/28/23 13:55 05/28/23 13:57 05/28/23 13:57 Temperature Pulse Rate 119 H 111 H Respiratory Rate 23 23 Blood Pressure 147/91 H Pulse Oximetry 92 94 Oxygen Delivery Method 05/28/23 13:59 05/28/23 13:59 05/28/23 14:00 Temperature Pulse Rate 148 H 121 H Respiratory Rate 22 35 H Blood Pressure 154/76 H Pulse Oximetry 93 95 Oxygen Delivery Method 05/28/23 14:00 05/28/23 14:05 05/28/23 14:05 Temperature Pulse Rate 110 H Respiratory Rate 19 Blood Pressure 149/88 H 164/73 H Pulse Oximetry 96 Oxygen Delivery Method 05/28/23 14:10 05/28/23 14:15 05/28/23 14:20 Temperature Pulse Rate 140 H 137 H 108 H Respiratory Rate 31 H 21 21 Blood Pressure Pulse Oximetry 94 91 94 Oxygen Delivery Method 05/28/23 14:25 05/28/23 14:28 05/28/23 14:28 Temperature Pulse Rate 114 H 116 H Respiratory Rate 16 22 Blood Pressure 141/98 H Pulse Oximetry 93 93 Oxygen Delivery Method 05/28/23 14:30 05/28/23 14:35 05/28/23 14:40 Temperature Pulse Rate 107 H 104 H 100 H Respiratory Rate 12 15 14 Blood Pressure Pulse Oximetry 97 93 89 L Oxygen Delivery Method 05/28/23 14:45 05/28/23 14:50 05/28/23 14:55 Temperature Pulse Rate 106 H 98 H 95 H Respiratory Rate 16 18 28 H Blood Pressure Pulse Oximetry 96 91 95 Oxygen Delivery Method 05/28/23 15:00 05/28/23 15:05 05/28/23 15:10 Temperature Pulse Rate 95 H 94 H 95 H Respiratory Rate 23 21 27 H Blood Pressure Pulse Oximetry 95 95 94 Oxygen Delivery Method 05/28/23 15:15 05/28/23 15:20 05/28/23 15:22 Temperature Pulse Rate 96 H 97 H Respiratory Rate 18 31 H Blood Pressure 149/81 H Pulse Oximetry Oxygen Delivery Method 05/28/23 15:22 05/28/23 15:25 05/28/23 15:25 Temperature Pulse Rate 98 H 96 H Respiratory Rate 24 19 Blood Pressure 150/81 H Pulse Oximetry 95 96 Oxygen Delivery Method 05/28/23 15:30 05/28/23 15:30 05/28/23 15:35 Temperature Pulse Rate 91 H 104 H Respiratory Rate 16 20 Blood Pressure 150/82 H Pulse Oximetry Oxygen Delivery Method 05/28/23 15:35 05/28/23 15:40 05/28/23 15:41 Temperature Pulse Rate 101 H Respiratory Rate 27 H Blood Pressure 166/82 H 154/80 H Pulse Oximetry Oxygen Delivery Method 05/28/23 15:41 05/28/23 15:45 05/28/23 15:50 Temperature Pulse Rate 101 H 96 H Respiratory Rate 25 H 20 Blood Pressure 151/68 H Pulse Oximetry 94 Oxygen Delivery Method 05/28/23 15:51 05/28/23 15:51 05/28/23 15:55 Temperature Pulse Rate 100 H 96 H Respiratory Rate 23 25 H Blood Pressure 141/83 H Pulse Oximetry 94 94 Oxygen Delivery Method 05/28/23 15:55 05/28/23 16:00 05/28/23 16:00 Temperature Pulse Rate 96 H Respiratory Rate 22 Blood Pressure 137/82 143/84 H Pulse Oximetry 94 Oxygen Delivery Method 05/28/23 16:05 05/28/23 16:05 Temperature Pulse Rate 94 H Respiratory Rate 22 Blood Pressure 139/81 Pulse Oximetry 94 Oxygen Delivery Method Room Air Medical Decision Making Medical Records Medical records reviewed: Yes I reviewed the patient's medical records. Lab Data Lab results reviewed: Yes I reviewed the patient's lab results. 05/28/23 14:25 05/28/23 12:39 Labs: Lab Results 05/28/23 05/28/23 Range/Units 12:39 14:25 WBC 11.2 H (4.5-11.0) X10^3/uL RBC 3.79 L (4.0-5.2) X10^6/uL Hgb 12.0 11.7 L (12.0-16.0) g/dL Hct 35.9 L 34.2 L (36-46) % MCV 94.9 (80-100) fL MCH 31.8 (26-34) PG MCHC 33.5 (30-36) % RDW 12.5 (11.6-14.8) % Plt Count 322 (150-400) X10^3/uL Neut % (Auto) 89.6 H (50-75) % Lymph % (Auto) 5.1 L (25-40) % [place] % (Auto) 5.3 (3-14) % Eos % (Auto) 0.0 L (2-4) % Baso % (Auto) 0.0 (0-2) % Neut # (Auto) 80959 H (5378-9077) /uL Lymph # (Auto) 600 L (5210-4280) /uL [place] # (Auto) 600 (0-900) /uL Eos # (Auto) 0 (0-450) /uL Baso # (Auto) 0 (0-100) /uL PT 13.7 H (9.4-12.5) SECONDS INR 1.2 (0.9-1.3) APTT 25 L (25.1-36.5) SECONDS Sodium 129 L (137-145) mmol/L Potassium 4.0 (3.4-5.1) mmol/L Chloride 93 L (98-107) mmol/L Carbon Dioxide 28 (22-32) mmol/L BUN 17 (7-17) mg/dL Creatinine 0.49 L (0.52-1.04) mg/dL Estimated GFR > 60 (>60) mL/min BUN/Creatinine Ratio 34.7 H (6-22) Glucose 164 H (80-110) mg/dL Calcium 10.1 (8.4-10.2) mg/dL Total Bilirubin 1.0 (0.2-1.3) mg/dL AST 26 (14-36) IU/L ALT 20 (<35) IU/L Alkaline Phosphatase 42 (38-126) U/L Total Protein 6.8 (6.3-8.2) g/dL Albumin 3.9 (3.5-5.0) g/dL Globulin 2.9 (1.7-4.1) g/dL Albumin/Globulin Ratio 1.3 (1.0-2.8) Lipase 45 (23-300) U/L Blood Type O Positive Antibody Screen Negative Imaging Data CT scan - abdomen/pelvis: Radiologist's Impression: PROCEDURE: CT ABDOMEN PELVIS W CON INDICATIONS: Laparoscopic inguinal hernia repair with LLQ swelling TECHNIQUE: After the administration of oral and IV contrast, axial sections were acquired from the lung bases to the pubic symphysis. Coronal and sagittal reformats were performed. For radiation dose reduction, the following was used: automated exposure control, adjustment of mA and/or kV according to patient size. COMPARISON: [facility], CT, ABDOMEN/PELVIS WITH CONTRAST, 07/30/2016, 9:55. FINDINGS: Image quality: Excellent. Lung bases: Moderate hiatal hernia. Heart: No significant findings. ABDOMEN: Liver: No solid mass. Sub cm cystic lesion in segment 6 too small to characterize by CT. Gallbladder: No radiopaque gallstones or wall thickening. Biliary ducts: No biliary dilation. Pancreas: No ductal dilation. Spleen: Size is within normal limits. Adrenal Glands: No adrenal nodules. Kidneys and Ureters: No hydronephrosis. No solid mass. No complex renal cystic lesion which requires follow up. Stomach and Bowel: Normal colonic caliber, without significant wall thickening. Moderate distension the stomach. Moderate colonic stool load. Peritoneum: Large volume free air. Small volume free fluid. No drainable abscess. Ventral Wall: No hernia. Subcutaneous gas overlying the abdominal wall. Abdominal Nodes: No retroperitoneal or mesenteric adenopathy by size criteria. Vessels: Aorta and inferior vena cava are normal in size. PELVIS: Pelvic Organs: Unremarkable. Bladder: Unremarkable. Pelvic Nodes: No enlarged lymph nodes. Miscellaneous: Left inguinal hernia repair. Trace residual fat within the left canal of [place]. Bones: Unremarkable. Convex left scoliosis. IMPRESSION: Interval laparoscopic surgery, large volume free air and small volume free fluid. No drainable abscess. Subcutaneous gas within the anterior abdominal wall, as expected. Moderate distension of the stomach, without outlet obstruction. Large colonic stool load. ECG Data Interpretation: Atrial fibrillation Ventricular rate 140 Left axis deviation Normal QRS No ST T wave changes Atrial fibrillation Ventricular rate 133 Normal axis Normal QRS and sudden no ST T wave changes MDM Narrative Medical decision making narrative: Patient is having coffee-ground emesis. Is not hypotensive. Hemoglobin hematocrit has relatively not changed since being here in the ER. CT scan of the abdomen is expected given her surgery. I did discuss the case with Dr. Saeed who evaluated the CT scan and agrees. Patient has had episodes of AFib with RVR. Is now somewhat rate controlled but continues to have AFib. Patient does live on [address]. I feel given her presentation today, recent surgery, new onset AFib that and admission to the hospital for further evaluation is warranted. Dr. Fajardo will consult. Dr. Bermudez will admit for further evaluation and treatment. Discharge Plan Departure Patient Disposition: Admitted As Inpatient Clinical Impression: Atrial fibrillation, Abdominal pain, Hematemesis Admit Date/Time: 05/28/23 16:06 Admit Provider: Herberth Bermudez
[2023-05-28] MEDS: ONDANSETRON 4 MG/2 ML INJ IV (13:11)
[2023-05-28] MEDS: SODIUM CHLORIDE 0.9% 1,000 ML 1000 ML IV (13:11)
[2023-05-28] MEDS: MORPHINE 4 MG/ML INJ IV (13:51)
[2023-05-28] MEDS: METOPROLOL IR 25 MG TABLET PO (14:26)
[2023-05-28 14:29] LABS: Hematocrit 34.2 % (36-46); Hemoglobin 11.7 g/dL (12.0-16.0)
--- NOTE | 2023-05-28 14:59 | PC.NURSE ---
Pt became tachycardic with HR bouncing between 120-180. EKG done. Pt denies cp, sob or any palpitaions. pt states that she does not feel like her HR is beating fast. Pt a&ox4. Dr Dailey notified and order obtained for PO metoprolol.
--- NOTE | 2023-05-28 15:02 | PC.NURSE ---
Pt a&ox4. HR 95.
[2023-05-28 17:04] LABS: Magnesium 1.5 mg/dL (1.6-2.3)
[2023-05-28] MEDS: SODIUM CHLORIDE 0.9% 1,000 ML 125 ML IV (17:33)
[2023-05-28 17:36] LABS: TSH w/ Reflex to FT4 1.34 uIU/mL (0.47-4.68)
[2023-05-28] MEDS: polyethylene glycoL 3350 17 GM POWD.PACK 34 GM PO (17:42)
--- NOTE | 2023-05-28 19:00 | P.HP_ITS ---
History of Present Illness History of Present Illness Date Patient Seen: 05/28/23 Time Patient Seen: 16:00 Chief complaint: GI bleed/post hernia surgery Narrative: Ms. Blackwell is a 72W with PMH CMT, barrets esophagus, who presents with abdominal pain, nauea, vomiting/hematemesis. Yesterday she had an outpatient laparascopic left inguinal hernia repair. Last night she developed nause and vomiting. No bowel movement, no diarrhea. She initially was vomiting bile appearing fluid, but mostly retching, and then she had blood noted in her vomit which caused her to come to the hospital. She has bloated and distended belly, she is belching frequently. In the ED workup was done, vitals notable for afebrile, heart rate intermittently tachycardic and in afib and intermittently rate controlled and in sinus. Labs and imaging reviewed by me and notable for WBC 11.2, Hgb 12.0-> 11.7. Na 129, creatinine 0.49. CT notable for free air, distended stomach, large amount of stool in colon. She was ordered for pain medications, nausea medications, PPI, and beta-yesi. Surgery was consulted and stated that CT findings of air were expected post-op. She was admitted for further treatment. [facility] [place] Medical History Scoliosis Glaucoma Depression Gwmfpgu-Kurrx-Sknso disease Colon polyps Barretts esophagus Surgical History Hx of hernia repair (07/20/22) Hx of hernia repair (05/18/22) Status post endoscopy Status post colonoscopy History of knee replacement History of knee replacement Status post cholecystectomy Status post hernia repair (08/11/89) Status post hysterectomy Family History Father Heart disease Hypertension High cholesterol Stomach cancer Stroke Grandfather CVA (cerebral infarction) Mother Cancer of breast Social History marital status: household members: family lives independently: Yes education level: master's degree occupational status: other Smoking Status: Current every day smoker alcohol intake: current Meds Home Medications and Allergies Home Medications Medication Instructions Recorded Confirmed Type latanoprost 0.005 % eye drops 1 drp OU HS ##0 01/27/17 05/28/23 History (Xalatan) ketoconazole 2 % topical cream See Rx Instructions .Route 11/26/20 05/28/23 Rx .COMPLEX #30 grams Disabled parking #1 ea 08/21/21 05/28/23 Rx timolol maleate 0.5 % eye drops 1 drp EYE-BOTH BID #15 mL 06/11/22 05/28/23 Rx pantoprazole 40 mg tablet,delayed See Rx Instructions .Route 11/05/22 05/28/23 Rx release .COMPLEX #90 tabs docusate sodium 100 mg capsule 100 mg PO BID #30 caps 05/27/23 05/28/23 Rx (Colace) acetaminophen 325 mg capsule 650 mg PO PRN PRN pain 05/28/23 05/28/23 History (Tylenol) ibuprofen 200 mg tablet 400 mg PO Q6H PRN Pain, Moderate 05/28/23 05/28/23 History Allergies Allergy/AdvReac Type Severity Reaction Status Date / Time No Known Drug Allergies Allergy Verified 05/27/23 11:27 Review of Systems Review of Systems Narrative: 14 systems reviewed and negative aside from what is noted in HPI Exam Vital Signs (past 8 hours): - 05/28/23 12:38 05/28/23 12:39 05/28/23 12:39 Temperature Pulse Rate 106 H 105 H Respiratory Rate Blood Pressure 173/81 H Pulse Oximetry 96 96 Oxygen Delivery Method Oxygen Flow Rate 05/28/23 12:40 05/28/23 13:00 05/28/23 13:00 Temperature 98.5 F Pulse Rate 101 H 98 H Respiratory Rate 16 18 Blood Pressure 173/81 H 162/75 H Pulse Oximetry 96 97 Oxygen Delivery Method Room Air Oxygen Flow Rate 05/28/23 13:26 05/28/23 13:26 05/28/23 13:30 Temperature Pulse Rate 102 H 95 H Respiratory Rate 26 H 14 Blood Pressure 150/83 H Pulse Oximetry 94 92 Oxygen Delivery Method Oxygen Flow Rate 05/28/23 13:30 05/28/23 13:35 05/28/23 13:35 Temperature Pulse Rate 100 H Respiratory Rate 18 Blood Pressure 142/69 H 143/67 H Pulse Oximetry 93 Oxygen Delivery Method Oxygen Flow Rate 05/28/23 13:40 05/28/23 13:45 05/28/23 13:50 Temperature Pulse Rate 94 H 95 H 103 H Respiratory Rate 14 18 23 Blood Pressure Pulse Oximetry 95 96 96 Oxygen Delivery Method Oxygen Flow Rate 05/28/23 13:55 05/28/23 13:57 05/28/23 13:57 Temperature Pulse Rate 119 H 111 H Respiratory Rate 23 23 Blood Pressure 147/91 H Pulse Oximetry 92 94 Oxygen Delivery Method Oxygen Flow Rate 05/28/23 13:59 05/28/23 13:59 05/28/23 14:00 Temperature Pulse Rate 148 H 121 H Respiratory Rate 22 35 H Blood Pressure 154/76 H Pulse Oximetry 93 95 Oxygen Delivery Method Oxygen Flow Rate 05/28/23 14:00 05/28/23 14:05 05/28/23 14:05 Temperature Pulse Rate 110 H Respiratory Rate 19 Blood Pressure 149/88 H 164/73 H Pulse Oximetry 96 Oxygen Delivery Method Oxygen Flow Rate 05/28/23 14:10 05/28/23 14:15 05/28/23 14:20 Temperature Pulse Rate 140 H 137 H 108 H Respiratory Rate 31 H 21 21 Blood Pressure Pulse Oximetry 94 91 94 Oxygen Delivery Method Oxygen Flow Rate 05/28/23 14:25 05/28/23 14:28 05/28/23 14:28 Temperature Pulse Rate 114 H 116 H Respiratory Rate 16 22 Blood Pressure 141/98 H Pulse Oximetry 93 93 Oxygen Delivery Method Oxygen Flow Rate 05/28/23 14:30 05/28/23 14:35 05/28/23 14:40 Temperature Pulse Rate 107 H 104 H 100 H Respiratory Rate 12 15 14 Blood Pressure Pulse Oximetry 97 93 89 L Oxygen Delivery Method Oxygen Flow Rate 05/28/23 14:45 05/28/23 14:50 05/28/23 14:55 Temperature Pulse Rate 106 H 98 H 95 H Respiratory Rate 16 18 28 H Blood Pressure Pulse Oximetry 96 91 95 Oxygen Delivery Method Oxygen Flow Rate 05/28/23 15:00 05/28/23 15:05 05/28/23 15:10 Temperature Pulse Rate 95 H 94 H 95 H Respiratory Rate 23 21 27 H Blood Pressure Pulse Oximetry 95 95 94 Oxygen Delivery Method Oxygen Flow Rate 05/28/23 15:15 05/28/23 15:20 05/28/23 15:22 Temperature Pulse Rate 96 H 97 H Respiratory Rate 18 31 H Blood Pressure 149/81 H Pulse Oximetry Oxygen Delivery Method Oxygen Flow Rate 05/28/23 15:22 05/28/23 15:25 05/28/23 15:25 Temperature Pulse Rate 98 H 96 H Respiratory Rate 24 19 Blood Pressure 150/81 H Pulse Oximetry 95 96 Oxygen Delivery Method Oxygen Flow Rate 05/28/23 15:30 05/28/23 15:30 05/28/23 15:35 Temperature Pulse Rate 91 H 104 H Respiratory Rate 16 20 Blood Pressure 150/82 H Pulse Oximetry Oxygen Delivery Method Oxygen Flow Rate 05/28/23 15:35 05/28/23 15:40 05/28/23 15:41 Temperature Pulse Rate 101 H Respiratory Rate 27 H Blood Pressure 166/82 H 154/80 H Pulse Oximetry Oxygen Delivery Method Oxygen Flow Rate 05/28/23 15:41 05/28/23 15:45 05/28/23 15:50 Temperature Pulse Rate 101 H 96 H Respiratory Rate 25 H 20 Blood Pressure 151/68 H Pulse Oximetry 94 Oxygen Delivery Method Oxygen Flow Rate 05/28/23 15:51 05/28/23 15:51 05/28/23 15:55 Temperature Pulse Rate 100 H 96 H Respiratory Rate 23 25 H Blood Pressure 141/83 H Pulse Oximetry 94 94 Oxygen Delivery Method Oxygen Flow Rate 05/28/23 15:55 05/28/23 16:00 05/28/23 16:00 Temperature Pulse Rate 96 H Respiratory Rate 22 Blood Pressure 137/82 143/84 H Pulse Oximetry 94 Oxygen Delivery Method Oxygen Flow Rate 05/28/23 16:05 05/28/23 16:05 05/28/23 17:32 Temperature 97.4 F L Pulse Rate 94 H 84 Respiratory Rate 22 19 Blood Pressure 139/81 152/91 H Pulse Oximetry 94 96 Oxygen Delivery Method Room Air Oxygen Flow Rate 0 05/28/23 17:58 Temperature Pulse Rate Respiratory Rate Blood Pressure Pulse Oximetry Oxygen Delivery Method Room Air Oxygen Flow Rate Oxygen Delivery Method Room Air Oxygen Flow Rate 0 Narrative Exam Narrative: GEN: no acute distress HEENT: moist mucous membranes PULM: clear bilaterally CV: regular rate and rhythm, no murmurs ABD: distended, moderate tenderness diffusely, no rebound/guarding, bruising on left flank, scars noted with no erythema or pus NEURO: awake, alert, no focal deficits Objective Labs 05/28/23 14:25 05/28/23 12:39 Labs: Laboratory Results - last 24 hr 05/28/23 05/28/23 12:39 14:25 WBC 11.2 H RBC 3.79 L Hgb 12.0 11.7 L Hct 35.9 L 34.2 L MCV 94.9 MCH 31.8 MCHC 33.5 RDW 12.5 Plt Count 322 Neut % (Auto) 89.6 H Lymph % (Auto) 5.1 L [place] % (Auto) 5.3 Eos % (Auto) 0.0 L Baso % (Auto) 0.0 Neut # (Auto) 82517 H Lymph # (Auto) 600 L [place] # (Auto) 600 Eos # (Auto) 0 Baso # (Auto) 0 PT 13.7 H INR 1.2 APTT 25 L Sodium 129 L Potassium 4.0 Chloride 93 L Carbon Dioxide 28 BUN 17 Creatinine 0.49 L Estimated GFR > 60 BUN/Creatinine Ratio 34.7 H Glucose 164 H Calcium 10.1 Magnesium 1.5 L Total Bilirubin 1.0 AST 26 ALT 20 Alkaline Phosphatase 42 Total Protein 6.8 Albumin 3.9 Globulin 2.9 Albumin/Globulin Ratio 1.3 Lipase 45 TSH 1.34 Blood Type O Positive Antibody Screen Negative Assessment & Plan Assessment & Plan narrative: 1. Acute nausea and vomiting suspect secondary to ileus secondary to recent hernia repair -had hernia repair yesterday -CT scan shows free air, per surgery and radiology this is expected for laparoscopic repair yesterday -CT also noted distended stomach and stool in colon -surgery consulted -suspect possible ileus vs constipation as worsening symptoms -ordered enema/suppository -suspect has reflux which was worsened due to ileus, ordered PPI -avoid opiates if possible 2. Acute vomiting of blood -suspect secondary radha keith tear -trend hemoglobin closely -plan for scope if bleeding worsens and hemoglobin falls -avoid anticoagulants for now -PPI BID IV ordered 3. Paroxysmal afib -new diagnosis -not in afib on admission -keep on tele -suspect secondary to above illness -magnesium low, ordered mag rider -did get one dose of metop PO in ED, will hold off on further for now as in sinus -if returns to afib despite electrolyte repletion will need ECHO and possible anticoagulation and rate control 4. Charcot jacobo tooth, neuropathy -chronic, at baseline CODE: Full Proxy: Elliot Blackwell son I have discussed plan and obtained history from patient. I have discussed plan of care with ED physician and bedside nurse. I have reviewed labs, imaging. Quality MIPS - Meds 'Current medications' to include all prescriptions, [id number] products, herbals, cannabis/cannabidiol products, and vitamin/mineral/dietary (nutritional) supplements. I have utilized all available resources to obtain, update, or review the patient?s current medications. [If Yes, STOP here]: Yes
[2023-05-28] MEDS: MAGNESIUM SULFATE 4 GM/100 ML PIGGYBACK IV (20:23)
[2023-05-28] MEDS: ACETAMINOPHEN 325 MG TABLET 650 MG PO (20:40)
[2023-05-28] MEDS: CELECOXIB 200 MG CAPSULE PO (20:41)
[2023-05-28] MEDS: BISACODYL 10 MG SUPP PR (20:41)
[2023-05-29] VITALS (8 sets, daily range): BP systolic 110–137; BP diastolic 73–92; PULSE 84–140; RESP 16–19; TEMP 35.9–36.6; O2SAT 92–97
[2023-05-29] MEDS: SODIUM CHLORIDE 0.9% 1,000 ML 125 ML IV ×3 (01:43→19:16)
[2023-05-29 06:04] LABS: Add Manual Diff / Slide Review NO; Basophils Absolute Auto 0 /uL (0-100); Eosinophils Absolute Auto 0 /uL (0-450); Hematocrit 33.6 % (36-46); Hemoglobin 11.5 g/dL (12.0-16.0); Lymphocytes Absolute Auto 800 /uL (1100-4500); Mean Corpuscular HGB Conc 34.3 % (30-36); Mean Corpuscular Hemoglobin 32.3 PG (26-34); Mean Corpuscular Volume 94.3 fL (80-100); Monocytes Absolute Auto 300 /uL (0-900); Monocytes Percent Auto 3.1 % (3-14); Neutrophils Absolute Auto 8100 /uL (1500-7000); Neutrophils Percent Auto 87.9 % (50-75); Platelet Count 294 X10^3/uL (150-400); Red Blood Cell Count 3.57 X10^6/uL (4.0-5.2); Red Cell Distribution Width 12.8 % (11.6-14.8); White Blood Cell Count 9.2 X10^3/uL (4.5-11.0)
[2023-05-29 06:15] LABS: BUN Creatinine Ratio 27.5 (6-22); Blood Urea Nitrogen 11 mg/dL (7-17); Calcium 9.2 mg/dL (8.4-10.2); Carbon Dioxide 24 mmol/L (22-32); Chloride 101 mmol/L (98-107); Estimated Glomerular Filt Rate > 60 mL/min (>60); Glucose 124 mg/dL (80-110); HEMOLYSIS < 15 (0-50); Potassium 3.6 mmol/L (3.4-5.1); Sodium 130 mmol/L (137-145)
[2023-05-29] MEDS: PANTOPRAZOLE 40 MG VIAL IV ×2 (08:44→20:14)
[2023-05-29] MEDS: CELECOXIB 200 MG CAPSULE PO ×2 (08:45→20:14)
[2023-05-29] MEDS: polyethylene glycoL 3350 17 GM POWD.PACK 34 GM PO (08:45)
[2023-05-29] MEDS: ACETAMINOPHEN 325 MG TABLET 650 MG PO (08:45)
--- NOTE | 2023-05-29 10:59 | DI.ECHO.S_ITS ---
[place] +---------+ Hospital +---------+ : : [address] : : : : [id number] : : : : Phone: [phone]+ Echocardiogram Report + + :Name: RYAN SKY Study Date: 05/30/2023 Height: 68 in : :[facility] ReadingLocation: Weight: 151 lb: : Gender: Female BSA: 1.8 m2 : :: 1950 Age: 72 yrs : :Reason For Study: ATRIAL FIBRILLATION : :Ordering Physician: JOEY, : :RICKY Performed By: Jaye Holloway : :Referring: RICKY COOK : + + Interpretation Summary The patient was in sinus rhythm with heart rates between 90-100 bpm during the exam. The ejection fraction is estimated to be 60-65%. Diastolic parameters suggest probable normal left ventricular diastolic function and normal filling pressures. The right ventricle is normal in size and function. The right ventricular systolic pressure is estimated to be at least 41 mmHg based on an estimated right atrial pressure of 15 mm Hg. No significant valvular abnormality. Procedure: A two-dimensional transthoracic echocardiogram with color flow and Doppler was performed. The study quality was technically adequate. Comparison is made with the echocardiogram of 05/30/2018. The patient was in sinus rhythm with heart rates between 90-100 bpm during the exam. Left Ventricle: The left ventricle is normal in size and wall thickness. The ejection fraction is estimated to be 60-65%. Diastolic parameters suggest probable normal left ventricular diastolic function and normal filling pressures. Right Ventricle: The right ventricle is normal in size and function. Atria: The left atrium is moderately dilated. Mitral Valve: The mitral valve leaflets appear mildly thickened, but open well. There is trace mitral regurgitation. Aortic Valve: The aortic valve is trileaflet. The aortic valve opens well. There is no aortic valve stenosis. No aortic regurgitation is present. Tricuspid Valve: The tricuspid valve is normal in structure and function. There is mild tricuspid regurgitation. The right ventricular systolic pressure is estimated to be at least 41 mmHg based on an estimated right atrial pressure of 15 mm Hg. Pulmonic Valve: The pulmonic valve leaflets are thin and pliable; valve motion is normal. There is trace pulmonic regurgitation. Great Vessels: The aortic root is borderline dilated. The dimensions of the ascending aorta are normal. The IVC is dilated (diameter is greater than 2.1 cm) and it collapses less than 50% with a sniff. This suggests a high right atrial pressure of 15 mm Hg. Pericardium/ Pleura There is no pericardial effusion. There is no pleural effusion. MMode/2D Measurements & Calculations LVIDd: 4.4 cm LVOT diam: 2.3 cm LVIDs: 2.8 cm Ao root diam: 4.0 cm FS: 35.9 % asc Aorta Diam: 3.5 cm IVSd: 0.76 cm Ao Arch Diam (Prox Trans): 2.3 cm LVPWd: 0.64 cm LV hill. diameter/BSA (cm/m^2): 2.4 LV sys. diameter/BSA (cm/m^2): 1.6 LA A2 area: 22.1 cm2 RA long axis: 4.8 cm LA A4 area: 18.4 cm2 RA area: 10.2 cm2 LA length (vol): 4.8 cm RA vol: 18.6 ml LA vol: 72.7 ml RA : 10.2 ml/m2 LA vol index: 40.1 ml/m2 IVC diam: 2.3 cm RVD2 (mid): 2.6 cm RV Wall_phl: 2.9 cm TAPSE: 1.6 cm Doppler Measurements & Calculations Ao V2 max: 123.2 cm/sec LVOT Max Jp: 116.5 cm/sec Ao V2 mean: 90.5 cm/sec LV V1 max P.4 mmHg Ao max P.1 mmHg LV V1 VTI: 23.1 cm Ao mean P.6 mmHg NAT(I,D): 3.8 cm2 Ao V2 VTI: 25.0 cm NAT(V,D): 3.9 cm2 sev ratio: 0.92 NAT indexed to BSA (cm^2/m^2): 2.1 MV E max jp: 88.9 cm/sec TR max jp: 256.7 cm/sec MV A max jp: 98.7 cm/sec TR max P.4 mmHg MV E/A: 0.90 PA V2 max: 78.3 cm/sec Med Peak E' Jp: 8.8 cm/sec PA V2 mean: 57.7 cm/sec E/E' med: 10.1 PA mean P.5 mmHg Lat Peak E' Jp: 10.2 cm/sec PA pr(Accel): 31.5 mmHg E/E' lat: 8.7 E/e' average: 9.4 MV dec time: 0.18 sec SVLVOT): 95.7 ml Reading Physician:CHACORTA
--- NOTE | 2023-05-29 11:00 | PC.NURSE ---
tele shows increase hr to 160 possible svt-md aware and here to see pt orders rc'd to include ivp metoprolol and labs
[2023-05-29 11:10] LABS: Magnesium 2.2 mg/dL (1.6-2.3)
--- NOTE | 2023-05-29 11:18 | PM.CN ---
History of Present Illness Consult details Date Patient Seen: 05/29/23 Time Patient Seen: 11:18 Chief complaint: GI bleed/post hernia surgery Narrative: 72-year-old woman underwent a laparoscopic converted to open left inguinal hernia repair 2 days ago. She presented to [facility] via EMS for abdominal pain nausea and small volume hematemesis. At admission afebrile with new onset AFib, WBC 11. CT abdomen pelvis demonstrates expected postoperative changes within the left groin and marked constipation no other significant abnormality. Since admission left groin has improved but she feels bloated and slightly nauseous. Last bowel movement was approximately 1 week ago. Meds Home Medications and Allergies Home Medications Medication Instructions Recorded Confirmed Type latanoprost 0.005 % eye drops 1 drp OU HS ##0 01/27/17 05/28/23 History (Xalatan) ketoconazole 2 % topical cream See Rx Instructions .Route 11/26/20 05/28/23 Rx .COMPLEX #30 grams Disabled parking #1 ea 08/21/21 05/28/23 Rx timolol maleate 0.5 % eye drops 1 drp EYE-BOTH BID #15 mL 06/11/22 05/28/23 Rx pantoprazole 40 mg tablet,delayed See Rx Instructions .Route 11/05/22 05/28/23 Rx release .COMPLEX #90 tabs docusate sodium 100 mg capsule 100 mg PO BID #30 caps 05/27/23 05/28/23 Rx (Colace) acetaminophen 325 mg capsule 650 mg PO PRN PRN pain 05/28/23 05/28/23 History (Tylenol) ibuprofen 200 mg tablet 400 mg PO Q6H PRN Pain, Moderate 05/28/23 05/28/23 History Allergies Allergy/AdvReac Type Severity Reaction Status Date / Time No Known Drug Allergies Allergy Verified 05/27/23 11:27 Exam Vital Signs (past 8 hours): - 05/29/23 06:00 05/29/23 08:00 Temperature 97.6 F 97.6 F Pulse Rate 89 89 Respiratory Rate 16 19 Blood Pressure 135/75 126/78 Pulse Oximetry 95 94 Oxygen Flow Rate 0 0 Oxygen Delivery Method Room Air Oxygen Flow Rate 0 Narrative Exam Narrative: General adult woman alert oriented no acute distress Chest nonlabored respiration Abdomen left groin incision clean dry intact. Laparoscopic port incisions clean dry intact. Appropriately tender to palpation. Extremities warm well perfused Objective Labs 05/29/23 05:23 12 05:23 Labs: Laboratory Results - last 24 hr 05/28/23 05/28/23 12 12:39 14:25 05:23 WBC 11.2 H 9.2 RBC 3.79 L 3.57 L Hgb 12.0 11.7 L 11.5 L Hct 35.9 L 34.2 L 33.6 L MCV 94.9 94.3 MCH 31.8 32.3 MCHC 33.5 34.3 RDW 12.5 12.8 Plt Count 322 294 Neut % (Auto) 89.6 H 87.9 H Lymph % (Auto) 5.1 L 9.0 L [place] % (Auto) 5.3 3.1 Eos % (Auto) 0.0 L 0.0 L Baso % (Auto) 0.0 0.0 Neut # (Auto) 05838 H 8100 H Lymph # (Auto) 600 L 800 L [place] # (Auto) 600 300 Eos # (Auto) 0 0 Baso # (Auto) 0 0 PT 13.7 H INR 1.2 APTT 25 L Sodium 129 L 130 L Potassium 4.0 3.6 Chloride 93 L 101 Carbon Dioxide 28 24 BUN 17 11 Creatinine 0.49 L 0.40 L Estimated GFR > 60 > 60 BUN/Creatinine Ratio 34.7 H 27.5 H Glucose 164 H 124 H Calcium 10.1 9.2 Magnesium 1.5 L 2.2 Total Bilirubin 1.0 AST 26 ALT 20 Alkaline Phosphatase 42 Total Protein 6.8 Albumin 3.9 Globulin 2.9 Albumin/Globulin Ratio 1.3 Lipase 45 TSH 1.34 Blood Type O Positive Antibody Screen Negative [facility] Medical History Scoliosis Glaucoma Depression Abpslzl-Pifyh-Lfcng disease Colon polyps Barretts esophagus Surgical History Hx of hernia repair (07/20/22) Hx of hernia repair (05/18/22) Status post endoscopy Status post colonoscopy History of knee replacement History of knee replacement Status post cholecystectomy Status post hernia repair (08/11/89) Status post hysterectomy Family History Father Heart disease Hypertension High cholesterol Stomach cancer Stroke Grandfather CVA (cerebral infarction) Mother Cancer of breast Social History marital status: household members: family lives independently: Yes education level: master's degree occupational status: other Tobacco & Substance Use Smoking Status: Current every day smoker alcohol intake: current Assessment & Plan Assessment and plan (1) Abdominal pain: Status: Acute (2) Hematemesis: Status: Acute Assessment & Plan narrative: 72-year-old woman 2 days status post laparoscopic converted to open left inguinal hernia repair admitted to the hospital for hematemesis and new onset AFib Laboratory studies and imaging personally reviewed. CT abdomen pelvis largely unremarkable with the exception of marked constipation. #AFib - spontaneously converted to sinus, monitor #Hematemesis -Resolved, Hct stable -PPI #Constipation -Enema and PO meds -If constipation resolves and she feels well she may discharge home later today.
[2023-05-29] MEDS: METOPROLOL TARTRATE 5 MG/5 ML INJ IV ×2 (11:25→22:40)
[2023-05-29] MEDS: MAGNESIUM HYDROXIDE 30 ML UDC PO (11:34)
[2023-05-29] MEDS: SENNOSIDES 8.6 MG TABLET 17.2 MG PO (11:34)
[2023-05-29] MEDS: METOPROLOL ER 25 MG TABLET PO ×2 (11:42→20:13)
[2023-05-29] MEDS: POTASSIUM CHLORIDE 20 MEQ TAB 40 MEQ PO (11:47)
--- NOTE | 2023-05-29 12:47 | CM.DANOTE ---
Initial DCP Assessment Note Pt is a 72 yo female, resident of [place], flown off [place], presents w/ N/V and afib, POD#2 from a lap converted to open hernia repair by Dr Fajardo. Dr Fajardo consulted, imaging clear except for identified constipation. Patient may be able to discharge home later today. PCP: Inna Gonzalez Payer: [facility] Reviewed chart, met with patient and her son Elliot, introduced self and role. Patient reports feeling uncomfortable. Son currently living with patient. Patient has a home on [address], has power but no running water. Patient uses a BSC and outhouse, says she does spit baths. Patient typically independent at her functional baseline. Patient anticipates returning home upon discharge, son to transport. No barriers identified at this time to patient's safe discharge home w/family to assist; close outpatient f/u recommended. CM team will plan to follow closely in case any DC needs or concerns arise. 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 No History Provided By Patient,Family Member Prior Living Arrangements House Household Members family Type of transporation used prior to Relies on Others admit Independent with ADL's Yes Is patient alert and oriented? Yes Needs Assistance With Home Chores / Shopping Barriers to Discharge No Discharge Plan Home Transportation Arrangement Family Referrals Initiated None needed
[2023-05-29] MEDS: OXYCODONE IR 5 MG TABLET PO ×2 (13:12→17:31)
--- NOTE | 2023-05-29 15:03 | PM.PN.1 ---
Subjective Subjective Date Patient Seen: 05/29/23 Time Patient Seen: 08:00 Interval history: She notes continued pain. No significant bowel movement. This afternoon she did return to afib with RVR and converted with IV metoprolol. Exam Vital Signs (past 8 hours): - 05/29/23 08:00 05/29/23 11:42 05/29/23 12:00 Temperature 97.6 F 97.1 F L Pulse Rate 89 92 H 95 H Respiratory Rate 19 16 Blood Pressure 126/78 137/92 H 135/86 Pulse Oximetry 94 97 Oxygen Flow Rate 0 0 Oxygen Delivery Method Room Air Oxygen Flow Rate 0 Narrative Exam Narrative: GEN: no acute distress HEENT: dry mucous membranes PULM: clear bilaterally CV: regular rate and rhythm, no murmurs ABD: distended, moderate tenderness diffusely, no rebound/guarding, bruising on left flank, scars noted with no erythema or pus NEURO: awake, alert, no focal deficits Objective Labs 05/29/23 05:23 05/29/23 05:23 Labs: Laboratory Results - last 24 hr 05/28/23 05/29/23 12:39 05:23 WBC 9.2 RBC 3.57 L Hgb 11.5 L Hct 33.6 L MCV 94.3 MCH 32.3 MCHC 34.3 RDW 12.8 Plt Count 294 Neut % (Auto) 87.9 H Lymph % (Auto) 9.0 L [place] % (Auto) 3.1 Eos % (Auto) 0.0 L Baso % (Auto) 0.0 Neut # (Auto) 8100 H Lymph # (Auto) 800 L [place] # (Auto) 300 Eos # (Auto) 0 Baso # (Auto) 0 Sodium 130 L Potassium 3.6 Chloride 101 Carbon Dioxide 24 BUN 11 Creatinine 0.40 L Estimated GFR > 60 BUN/Creatinine Ratio 27.5 H Glucose 124 H Calcium 9.2 Magnesium 1.5 L 2.2 TSH 1.34 PFSH Medical History Scoliosis Glaucoma Depression Kcirfpg-Upihs-Gfmxx disease Colon polyps Barretts esophagus Surgical History Hx of hernia repair (07/20/22) Hx of hernia repair (05/18/22) Status post endoscopy Status post colonoscopy History of knee replacement History of knee replacement Status post cholecystectomy Status post hernia repair (08/11/89) Status post hysterectomy Family History Father Heart disease Hypertension High cholesterol Stomach cancer Stroke Grandfather CVA (cerebral infarction) Mother Cancer of breast Social History marital status: household members: family lives independently: Yes education level: master's degree occupational status: other Smoking Status: Current every day smoker alcohol intake: current Assessment & Plan Assessment & Plan narrative: 1. Acute nausea and vomiting suspect secondary to ileus/constipation secondary to recent hernia repair -had hernia repair yesterday -CT scan shows free air, per surgery and radiology this is expected for laparoscopic repair yesterday -CT also noted distended stomach and stool in colon -surgery consulted -suspect possible ileus/constipation as worsening symptoms -ordered enema/suppository -suspect has reflux which has worsened, ordered PPI -avoid opiates if possible 2. Acute vomiting of blood, resolved -suspect secondary radha keith tear -trend hemoglobin closely -plan for scope if bleeding worsens and hemoglobin falls -avoid anticoagulants for now -PPI BID IV ordered 3. Paroxysmal afib -new diagnosis -not in afib on admission, but then went into afib RVR for a second time on 05/29 -keep on tele -suspect secondary to above illness -magnesium low, potassium slightly low, ordered replacement -will start regular metoprolol for rate control -ordered ECHO -no anticoagulation for now given hematemesis on admit 4. Charcot jacobo tooth, neuropathy -chronic, at baseline
--- NOTE | 2023-05-29 23:20 | PC.NURSE ---
2006: Pt sustaining A fib RVR, highest 150s. Denies chest pain, headache, flutters, light headedness. BP 123/75 (93) 92% RA RR 15. Dr. Singh notified, order to give scheduled 25mg ER metoprolol. Order followed through. 2239: Pt sustaining A fib RVR again, highest 150s. Continues to deny chest pain, headache, flutters, light headedness. Dr. Singh notified, order of PRN 5mg IV metoprolol administered.
[2023-05-30] VITALS (12 sets, daily range): BP systolic 93–134; BP diastolic 49–93; PULSE 76–180; RESP 17–20; TEMP 35.9–37; O2SAT 91–95
[2023-05-30] MEDS: OXYCODONE IR 5 MG TABLET PO ×3 (00:59→20:29)
[2023-05-30] MEDS: SODIUM CHLORIDE 0.9% 1,000 ML 125 ML IV ×2 (03:51→12:25)
[2023-05-30 06:29] LABS: Hematocrit 29.5 % (36-46); Hemoglobin 9.8 g/dL (12.0-16.0); Mean Corpuscular HGB Conc 33.3 % (30-36); Mean Corpuscular Hemoglobin 31.3 PG (26-34); Mean Corpuscular Volume 93.9 fL (80-100); Platelet Count 249 X10^3/uL (150-400); Red Blood Cell Count 3.14 X10^6/uL (4.0-5.2); Red Cell Distribution Width 12.5 % (11.6-14.8); White Blood Cell Count 7.2 X10^3/uL (4.5-11.0)
[2023-05-30 06:38] LABS: BUN Creatinine Ratio 24.4 (6-22); Blood Urea Nitrogen 10 mg/dL (7-17); Calcium 8.4 mg/dL (8.4-10.2); Carbon Dioxide 23 mmol/L (22-32); Chloride 101 mmol/L (98-107); Estimated Glomerular Filt Rate > 60 mL/min (>60); Glucose 106 mg/dL (80-110); HEMOLYSIS < 15 (0-50); Potassium 4.3 mmol/L (3.4-5.1); Sodium 128 mmol/L (137-145)
[2023-05-30] MEDS: METOPROLOL ER 25 MG TABLET 50 MG PO (10:10)
[2023-05-30] MEDS: CELECOXIB 200 MG CAPSULE PO ×2 (10:10→20:26)
[2023-05-30] MEDS: BISACODYL 10 MG SUPP PR (10:10)
[2023-05-30] MEDS: polyethylene glycoL 3350 17 GM POWD.PACK 34 GM PO (10:10)
[2023-05-30] MEDS: PANTOPRAZOLE 40 MG VIAL IV ×2 (10:11→20:25)
[2023-05-30] MEDS: METOPROLOL TARTRATE 5 MG/5 ML INJ IV ×2 (11:59→17:41)
[2023-05-30] MEDS: ACETAMINOPHEN 325 MG TABLET 650 MG PO (12:24)
[2023-05-30] MEDS: DOCUSATE 100 MG CAPSULE 200 MG PO ×2 (13:12→20:25)
--- NOTE | 2023-05-30 14:46 | PT-IP ANOTE ---
Received PT orders and completed chart review. Pt is tachycardic with rate 150-160 during minimal exertion this afternoon. Will hold PT evaluation and follow up as appropriate next service date.
--- NOTE | 2023-05-30 15:25 | PM.PN.1 ---
Subjective Subjective Date Patient Seen: 05/30/23 Time Patient Seen: 15:25 Interval history: Complaining of left lower abdominal pain No bowel movement yet, on the bowel regimen Being treated for new onset a. fib with RVR Exam Vital Signs (past 8 hours): - 05/30/23 08:00 05/30/23 12:00 05/30/23 12:43 Temperature 97.9 F 98.3 F Pulse Rate 94 H 158 H Respiratory Rate 18 20 Blood Pressure 118/71 134/93 H 105/85 Pulse Oximetry 95 94 Oxygen Flow Rate 0 0 05/30/23 13:00 Temperature Pulse Rate 104 H Respiratory Rate Blood Pressure Pulse Oximetry Oxygen Flow Rate Oxygen Delivery Method Room Air Oxygen Flow Rate 0 Narrative Exam Narrative: There is firmness and induration of the left lower quadrant for several centimeters just superior to the incision the rest of the abdomen is soft and nontender Objective Labs 05/30/23 06:14 05/30/23 06:14 Labs: Laboratory Results - last 24 hr 05/30/23 06:14 WBC 7.2 RBC 3.14 L Hgb 9.8 L Hct 29.5 L MCV 93.9 MCH 31.3 MCHC 33.3 RDW 12.5 Plt Count 249 Sodium 128 L Potassium 4.3 Chloride 101 Carbon Dioxide 23 BUN 10 Creatinine 0.41 L Estimated GFR > 60 BUN/Creatinine Ratio 24.4 H Glucose 106 Calcium 8.4 PFSH Medical History Scoliosis Glaucoma Depression Ugudycf-Nmepi-Xjrrl disease Colon polyps Barretts esophagus Surgical History Hx of hernia repair (07/20/22) Hx of hernia repair (05/18/22) Status post endoscopy Status post colonoscopy History of knee replacement History of knee replacement Status post cholecystectomy Status post hernia repair (08/11/89) Status post hysterectomy Family History Father Heart disease Hypertension High cholesterol Stomach cancer Stroke Grandfather CVA (cerebral infarction) Mother Cancer of breast Social History marital status: household members: family lives independently: Yes education level: master's degree occupational status: other Smoking Status: Current every day smoker alcohol intake: current Assessment & Plan Assessment and plan (1) Abdominal pain: Qualifiers: Abdominal location: left lower quadrant Qualified Code(s): R10.32 - Left lower quadrant pain Status: Acute Plan Recommend continued treatment of a. fib Continue with enemas.
--- NOTE | 2023-05-30 16:13 | PM.PN.1 ---
Subjective Subjective Date Patient Seen: 05/30/23 Time Patient Seen: 11:00 Interval history: She notes continued pain. No significant bowel movement. This afternoon she did return to afib with RVR and converted with IV metoprolol again. Exam Vital Signs (past 8 hours): - 05/30/23 12:00 05/30/23 12:43 05/30/23 13:00 Temperature 98.3 F Pulse Rate 158 H 104 H Respiratory Rate 20 Blood Pressure 134/93 H 105/85 Pulse Oximetry 94 Oxygen Flow Rate 0 Oxygen Delivery Method Room Air Oxygen Flow Rate 0 Narrative Exam Narrative: GEN: no acute distress HEENT: dry mucous membranes PULM: clear bilaterally CV: regular rate and rhythm, no murmurs ABD: distended, moderate tenderness diffusely, no rebound/guarding, bruising on left flank, scars noted with no erythema or pus NEURO: awake, alert, no focal deficits Objective Labs 05/30/23 06:14 05/30/23 06:14 Labs: Laboratory Results - last 24 hr 05/30/23 06:14 WBC 7.2 RBC 3.14 L Hgb 9.8 L Hct 29.5 L MCV 93.9 MCH 31.3 MCHC 33.3 RDW 12.5 Plt Count 249 Sodium 128 L Potassium 4.3 Chloride 101 Carbon Dioxide 23 BUN 10 Creatinine 0.41 L Estimated GFR > 60 BUN/Creatinine Ratio 24.4 H Glucose 106 Calcium 8.4 PFSH Medical History Scoliosis Glaucoma Depression Bbdjjsb-Knwlb-Fmyxx disease Colon polyps Barretts esophagus Surgical History Hx of hernia repair (07/20/22) Hx of hernia repair (05/18/22) Status post endoscopy Status post colonoscopy History of knee replacement History of knee replacement Status post cholecystectomy Status post hernia repair (08/11/89) Status post hysterectomy Family History Father Heart disease Hypertension High cholesterol Stomach cancer Stroke Grandfather CVA (cerebral infarction) Mother Cancer of breast Social History marital status: household members: family lives independently: Yes education level: master's degree occupational status: other Smoking Status: Current every day smoker alcohol intake: current Assessment & Plan Assessment & Plan narrative: 1. Acute nausea and vomiting suspect secondary to ileus/constipation secondary to recent hernia repair -had hernia repair recently -CT scan shows free air, per surgery and radiology this is expected for laparoscopic repair yesterday -CT also noted distended stomach and stool in colon -surgery consulted -suspect possible ileus/constipation as worsening symptoms -ordered enema/suppository, continue aggressive laxative therapies with bisacodyl, miralax, colace, along with enemas. If no improvement consider methylnaltrexone. -suspect has reflux which has worsened, ordered PPI -avoid opiates if possible, but continues to have pain today. 2. Acute vomiting of blood, resolved -suspect secondary radha keith tear -trend hemoglobin closely -plan for scope if bleeding worsens and hemoglobin falls, Hg did decline to 9.8 today but no hematemesis today. Continue to follow. -avoid anticoagulants for now -PPI BID IV ordered 3. Paroxysmal afib -new diagnosis -not in afib on admission, but then went into afib RVR for a second time on 05/29 -keep on tele -suspect secondary to above illness and pain -magnesium low, potassium slightly low, ordered replacement -will start regular metoprolol for rate control, increase to BID today. -ordered ECHO -no anticoagulation for now given hematemesis on admit 4. Charcot jacobo tooth, neuropathy -chronic, at baseline Code: Full Surrogate: Son Dispo: Probable SNF after resumption of bowel movements Discussed with surgery, case management for additional history and to formulate the above assessement and plan.
--- NOTE | 2023-05-30 16:58 | PC.NURSE ---
around 1600 pt HR 130-160's, asymptomatic. notified provider. now new orders.
--- NOTE | 2023-05-30 17:07 | CM.DPC ---
DCP Continued LABORATORY DIRECTOR reviewed EMR. Per provider, may d/c today if has a bowel movement. Per RN, had some afib with RVR. cigar bander notified this LABORATORY DIRECTOR that family wished to speak about dcp with this LABORATORY DIRECTOR. Per RN, patient could likely benefit from PT eval. LABORATORY DIRECTOR entered room and introduced self and role. Patient accompanied by son Elliot ([phone]) at bedside. Elliot concerned that his mom is not strong enough to manage home and is interested in SNF for a short term to get her back to baseline. LABORATORY DIRECTOR reviewed different barriers to that plan but could pursue it. Patient and son interested in nursing home caregiving options on [place]. Patient reports she is on Medicaid. Medicaid, per our account team, is not active. LABORATORY DIRECTOR gave son and patient information on restarting Medicaid/[employer] caregiver application. Son in agreement to complete it and return it to this LABORATORY DIRECTOR tomorrow. LABORATORY DIRECTOR placed verbal reback order for PT/OT eval for potential SNF placement, pending their recommendation. Family preference is [facility]. Per UR RN, able to switch patient to INPT today due to afib with RVR and downtrending H&H Plan 1) SNF placement pending therapy recs 2) consider respite care for short term stay in order to safely return to [place]. CM team will consider to follow closely. TEE Guillermo
[2023-05-30] MEDS: METOPROLOL ER 25 MG TABLET 75 MG PO (20:26)
[2023-05-30] MEDS: SODIUM CHLORIDE 0.9% FLUSH 10 ML IV (21:48)
[2023-05-30] MEDS: SODIUM CHLORIDE 0.9% 500 ML IV (22:53)
--- NOTE | 2023-05-30 22:59 | PC.NURSE ---
2228 Dr. Gold notified that Pt. B/P 85/50 & HR in 150's per OPHTHALMIC PHOTOGRAPHER reports. Orders received to bolus 500cc for 1 hr. & IVF NS @ 100 cc/hr. Last B/P rechecked was 77/44 bolus infusing, 180 cc infused & rechecked B/P 82/50. Pt. denies any chest pain & dizziness, states I feel fine. Will continue plan of care & monitor.
[2023-05-30] MEDS: SODIUM CHLORIDE 0.9% 500 ML 1000 ML IV (23:56)
[2023-05-31] VITALS (82 sets, daily range): BP systolic 65–132; BP diastolic 45–71; PULSE 87–158; RESP 12–36; TEMP 36.1–36.9; O2SAT 87–106
[2023-05-31] MEDS: SODIUM CHLORIDE 0.9% 1,000 ML 100 ML IV ×3 (00:22→23:58)
[2023-05-31] MEDS: SODIUM CHLORIDE 0.9% 500 ML IV (01:10)
--- NOTE | 2023-05-31 01:35 | PM.CN.EICU ---
History of Present Illness Consult details IF CAMERA ACTIVATED, patient seen via real-time interactive audiovisual communication: Camera activated Chief complaint: GI bleed/post hernia surgery Reason for consult: A fib w/ RVR Consent obtained for tele-turf manager care: Yes Patient Location: ICU Provider location (State): [place] Other participants/roles: Bedside RN Narrative: Patient is a 72 year old female with history of atrial fibrillation who recently underwent a laparoscopic left inguinal hernia repair on 05/27/23, presenting with N/V and hematemesis. On presentation she was found to be in A fib. CT abdomen showed free air whcih was attributed to recent surgery. Overnight patient went into A fib w/ RVR and tarnsferred to ICU for further management. Resuscitated with 2 liters NS bolus. On my assessment patient is awake and following commands. Denies chest pain, N/V, fever/chills, or abdominal pain. [facility] Medical History Scoliosis Glaucoma Depression Fzwimxs-Zacvo-Jnmhr disease Colon polyps Barretts esophagus Surgical History Hx of hernia repair (07/20/22) Hx of hernia repair (05/18/22) Status post endoscopy Status post colonoscopy History of knee replacement History of knee replacement Status post cholecystectomy Status post hernia repair (08/11/89) Status post hysterectomy Family History Father Heart disease Hypertension High cholesterol Stomach cancer Stroke Grandfather CVA (cerebral infarction) Mother Cancer of breast Social History marital status: household members: family lives independently: Yes education level: master's degree occupational status: other Smoking Status: Current every day smoker alcohol intake: current Current Medications Current Medications Medications: Home Medications latanoprost 0.005 % eye drops (Xalatan) 1 drp OU HS ##0 01/27/17 [History Confirmed 05/28/23] ketoconazole 2 % topical cream See Rx Instructions .Route .COMPLEX #30 grams 11/26/20 [Rx Confirmed 05/28/23] Disabled parking #1 ea 08/21/21 [Rx Confirmed 05/28/23] timolol maleate 0.5 % eye drops 1 drp EYE-BOTH BID #15 mL 06/11/22 [Rx Confirmed 05/28/23] pantoprazole 40 mg tablet,delayed release See Rx Instructions .Route .COMPLEX #90 tabs 11/05/22 [Rx Confirmed 05/28/23] docusate sodium 100 mg capsule (Colace) 100 mg PO BID #30 caps 05/27/23 [Rx Confirmed 05/28/23] acetaminophen 325 mg capsule (Tylenol) 650 mg PO PRN PRN pain 05/28/23 [History Confirmed 05/28/23] ibuprofen 200 mg tablet 400 mg PO Q6H PRN Pain, Moderate 05/28/23 [History Confirmed 05/28/23] dorzolamide 22.3 mg-timolol 6.8 mg/mL eye drops 1 drp EYE-BOTH BID 05/30/23 [History Confirmed 05/30/23] Visit Medications (administered) Generic Name Dose Route Start Last Admin Trade Name Freq PRN Reason Stop Dose Admin Acetaminophen 650 mg 05/28/23 17:00 05/30/23 12:24 Acetaminophen 325 Mg Tablet PO 650 mg Q6H PRN Administration Fever/Mild Pain (1-3) Bisacodyl 10 mg 05/28/23 17:00 05/30/23 10:10 Bisacodyl 10 Mg Supp MD 10 mg DAILY PRN Administration Constipation Celecoxib 200 mg 05/28/23 21:00 05/30/23 20:26 Celecoxib 200 Mg Capsule PO 200 mg BID ASHLEY Administration Docusate Sodium 200 mg 05/30/23 12:45 05/30/23 20:25 Docusate 100 Mg Capsule PO 200 mg BID ASHLEY Administration Dorzolamide/Timolol 1 drops 05/30/23 21:30 05/30/23 22:29 Dorzolamide/Timolol Ophth 10 Ml EYE-BOTH Not Given BID ASHLEY Sodium Chloride 1,000 mls @ 100 mls/hr 05/30/23 22:45 05/31/23 00:22 Normal Saline 0.9% IV 100 mls/hr CONT ASHLEY Administration Latanoprost 1 drops 05/30/23 21:30 05/30/23 22:29 Latanoprost 0.005% Ophth 2.5 Ml EYE-BOTH Not Given BEDTIME ASHLEY Metoprolol Succinate 75 mg 05/30/23 21:00 05/30/23 20:26 Metoprolol Er 25 Mg Tablet PO 75 mg BID ASHLEY Administration Metoprolol Tartrate 5 mg 05/29/23 21:44 05/30/23 17:41 Metoprolol Tartrate 5 Mg/5 Ml Inj IV 5 mg Q6H PRN Administration Heart Rate- High >110 Oxycodone HCl 5 mg 05/29/23 16:43 05/30/23 20:29 Oxycodone Ir 5 Mg Tablet PO 5 mg Q6H PRN Administration Pain, Moderate (4-6) Pantoprazole Sodium 40 mg 05/28/23 21:00 05/30/23 20:25 Pantoprazole 40 Mg Vial IV 40 mg BID ASHLEY Administration Polyethylene Glycol 34 gm 05/28/23 17:25 05/30/23 10:10 Polyethylene Glycol 3350 17 Gm Powd.Pack PO 34 gm DAILY ASHLEY Administration Sodium Chloride 10 ml 05/30/23 21:00 05/30/23 21:48 Sodium Chloride 0.9% Flush IV 10 ml BID ASHLEY Administration Timolol Maleate 1 drops 05/30/23 21:30 05/30/23 22:30 Timolol 0.5% Ophth EYE-BOTH Not Given BID ASHLEY Exam Vital Signs (past 8 hours): - 05/30/23 17:42 05/30/23 18:17 05/30/23 20:26 Temperature Pulse Rate 180 H 112 H 103 H Respiratory Rate Blood Pressure 100/50 L 108/53 L Pulse Oximetry 05/30/23 21:47 05/30/23 22:00 05/31/23 00:21 Temperature 98.6 F Pulse Rate 97 H 97 H 150 H Respiratory Rate 18 Blood Pressure 93/49 L 93/49 L 80/49 L Pulse Oximetry 94 Oxygen Delivery Method Room Air Oxygen Flow Rate 0 Objective Labs 05/30/23 06:14 05/30/23 06:14 Labs: Laboratory Results - last 24 hr 05/30/23 06:14 WBC 7.2 RBC 3.14 L Hgb 9.8 L Hct 29.5 L MCV 93.9 MCH 31.3 MCHC 33.3 RDW 12.5 Plt Count 249 Sodium 128 L Potassium 4.3 Chloride 101 Carbon Dioxide 23 BUN 10 Creatinine 0.41 L Estimated GFR > 60 BUN/Creatinine Ratio 24.4 H Glucose 106 Calcium 8.4 Assessment & Plan Assessment & Plan narrative: NEURO: -- PT/OT RESP: -- On room air -- Encourage IS CVS: # A fib w/ RVR -- Secondary to dehydration vs electrolyte derangement -- Cont IVF resuscitation -- TTE showed prserved LV function -- High lytes goal -- Cont metoprolol -- Added digoxin 250 mcg IV once -- GOal HR < 110 -- Not a candidate for AC as patient presents with hematemesis HEME: # Anemia -- Secondary to ABLA -- Trend CBC -- GOal Hb > 7 GI: # Upper GI bleed -- Secondary to radha keith tear vs gastritis vs AVM vs PUD -- Need GI consult -- Trend CBC ENDO: -- Goal BS < 180 D/w bedside RN. Time Spent With Patient Time with patient: 30 to 49 minutes with 50% spent counseling/coordinating care
--- NOTE | 2023-05-31 01:39 | PC.NURSE ---
Pt. transferred to ICU, still very hypotensive & HR still up in 150's. Report given to Yana BRAZING MACHINE OPERATOR HELPER.
[2023-05-31 02:31] LABS: Add Manual Diff / Slide Review NO; Basophils Absolute Auto 0 /uL (0-100); Basophils Percent Auto 0.1 % (0-2); Eosinophils Absolute Auto 100 /uL (0-450); Eosinophils Percent Auto 1.3 % (2-4); Hematocrit 30.1 % (36-46); Hemoglobin 10.2 g/dL (12.0-16.0); Lymphocytes Absolute Auto 400 /uL (1100-4500); Lymphocytes Percent Auto 6.2 % (25-40); Mean Corpuscular HGB Conc 33.9 % (30-36); Mean Corpuscular Hemoglobin 32.3 PG (26-34); Mean Corpuscular Volume 95.2 fL (80-100); Monocytes Absolute Auto 200 /uL (0-900); Neutrophils Absolute Auto 6400 /uL (1500-7000); Neutrophils Percent Auto 89.4 % (50-75); Platelet Count 246 X10^3/uL (150-400); Red Blood Cell Count 3.16 X10^6/uL (4.0-5.2); Red Cell Distribution Width 12.4 % (11.6-14.8); White Blood Cell Count 7.2 X10^3/uL (4.5-11.0)
[2023-05-31 02:42] LABS: Alanine Aminotransferase 15 IU/L (<35); Albumin 2.5 g/dL (3.5-5.0); Alkaline Phosphatase 47 U/L (38-126); Aspartate Aminotransferase 22 IU/L (14-36); BUN Creatinine Ratio 28.6 (6-22); Bilirubin Total 1.2 mg/dL (0.2-1.3); Blood Urea Nitrogen 14 mg/dL (7-17); Calcium 7.8 mg/dL (8.4-10.2); Carbon Dioxide 19 mmol/L (22-32); Chloride 101 mmol/L (98-107); Estimated Glomerular Filt Rate > 60 mL/min (>60); Globulin 2.5 g/dL (1.7-4.1); Glucose 87 mg/dL (80-110); HEMOLYSIS < 15 (0-50); Magnesium 1.7 mg/dL (1.6-2.3); Potassium 4.3 mmol/L (3.4-5.1); Sodium 125 mmol/L (137-145)
[2023-05-31] MEDS: DIGOXIN 500 MCG/2 ML AMPUL 250 MCG IV (02:48)
[2023-05-31 02:58] LABS: Lactate (Lactic Acid) 1.3 mmol/L (0.7-2.1)
[2023-05-31 03:05] LABS: Troponin I < 0.012 ng/mL (0.01-0.034)
[2023-05-31] MEDS: LACTATED RINGERS 1,000 ML 1000 ML IV (03:47)
[2023-05-31] MEDS: MAGNESIUM SULFATE 2 GM/50 ML PIGGYBACK IV (03:47)
[2023-05-31 04:25] LABS: MRSA (Nasal) PCR Not Detected (Not Detect)
[2023-05-31 05:27] LABS: BUN Creatinine Ratio 29.2 (6-22); Blood Urea Nitrogen 14 mg/dL (7-17); Carbon Dioxide 18 mmol/L (22-32); Chloride 102 mmol/L (98-107); Estimated Glomerular Filt Rate > 60 mL/min (>60); Glucose 83 mg/dL (80-110); HEMOLYSIS < 15 (0-50); Magnesium 1.7 mg/dL (1.6-2.3); Potassium 4.4 mmol/L (3.4-5.1); Sodium 126 mmol/L (137-145)
[2023-05-31 05:28] LABS: Add Manual Diff / Slide Review NO; Basophils Absolute Auto 0 /uL (0-100); Basophils Percent Auto 0.2 % (0-2); Eosinophils Absolute Auto 100 /uL (0-450); Eosinophils Percent Auto 1.4 % (2-4); Hematocrit 28.1 % (36-46); Hemoglobin 9.7 g/dL (12.0-16.0); Lymphocytes Absolute Auto 400 /uL (1100-4500); Mean Corpuscular HGB Conc 34.4 % (30-36); Mean Corpuscular Hemoglobin 32.8 PG (26-34); Mean Corpuscular Volume 95.3 fL (80-100); Monocytes Absolute Auto 200 /uL (0-900); Monocytes Percent Auto 3.1 % (3-14); Neutrophils Absolute Auto 6200 /uL (1500-7000); Neutrophils Percent Auto 89.3 % (50-75); Platelet Count 248 X10^3/uL (150-400); Red Blood Cell Count 2.95 X10^6/uL (4.0-5.2)
--- NOTE | 2023-05-31 06:49 | PC.NURSE ---
clinical engineering director RN note Pt transfered to ICU via bed, alert, oriented to self and place, forgetful at times, PIMENTEL, hypotensive, afib/ST BBB 100-140s, MD notified and orders for fluid bolus and digoxin, following med and bolus HR improved to 80-120s, and stable BP with MAP >65, PPPx4, mild gen edema, afebrile, lungs clear and decreased to bases, abd round semi firm with BS, pt states BM yesterday, voiding mello urine via bedpan, skin warm, bruising noted to abd from recent lap inguinal hernia repair, c/o pain in back, labs as ordered, continue to monitor
[2023-05-31] MEDS: PANTOPRAZOLE 40 MG VIAL IV ×2 (08:59→20:52)
[2023-05-31] MEDS: SODIUM CHLORIDE 0.9% FLUSH 10 ML IV ×2 (08:59→20:53)
[2023-05-31] MEDS: DOCUSATE 100 MG CAPSULE 200 MG PO ×2 (08:59→20:53)
[2023-05-31] MEDS: polyethylene glycoL 3350 17 GM POWD.PACK 34 GM PO (09:00)
[2023-05-31] MEDS: METOPROLOL ER 25 MG TABLET 75 MG PO (09:23)
[2023-05-31] MEDS: BISACODYL 5 MG TABLET 10 MG PO (10:11)
[2023-05-31] MEDS: OXYCODONE IR 5 MG TABLET PO ×2 (10:11→23:02)
[2023-05-31] MEDS: METOPROLOL TARTRATE 5 MG/5 ML INJ IV (10:11)
--- NOTE | 2023-05-31 10:13 | OT.IPNOTE ---
Pt having increased HR in the 140's, hold OT eval at this time.
--- NOTE | 2023-05-31 10:41 | PT-OP ANOTE ---
PT reviewed chart and checked in with pt and nsg. Pt con't with tachycardia with HR in the 140s. Will hold currently. Con't efforts.
--- NOTE | 2023-05-31 11:13 | PC.NURSE ---
Addendum entered by Ella Hernandez R.N. 05/31/23 18:59: Pt rested this afternoon. HR 90-120's. Up to BSC for BM urge. No results. Pt back to bed with 2 person assist. abd pain increased; Dilaudid 1mg IV given with relief Original Note: HR increases to 140's Afib; Dr. Velazquez notified. Biscodyl po given. IV Metoprolol 5mg given; HR 100's temporarily then back to 120-140's. Dr. Velazquez in to see pt and notified of posterior insp. crx.
[2023-05-31] MEDS: polyethylene glycoL 3350 17 GM POWD.PACK 64 GM PO (13:56)
--- NOTE | 2023-05-31 14:03 | P.PN_ITS ---
Subjective Subjective Date Patient Seen: 05/30/23 Time Patient Seen: 11:00 Interval history: Overnight had another episode of rapid afib. Moved to the ICU, was given IV fluids, single dose of digoxin. Continues to have intermittent rapid rate today not seemingly related to medications. She has not had a bowel movement, but starting to have gas and abdominal pain is improved. She is tolerating a diet without nausea or emesis. Exam Vital Signs (past 8 hours): - 05/31/23 06:12 05/31/23 06:15 05/31/23 06:15 Temperature Pulse Rate 90 105 H Respiratory Rate 16 24 Blood Pressure 111/57 L Pulse Oximetry 96 95 Oxygen Delivery Method Oxygen Flow Rate 05/31/23 06:30 05/31/23 06:30 05/31/23 06:45 Temperature Pulse Rate 89 Respiratory Rate 15 Blood Pressure 102/57 L 105/55 L Pulse Oximetry 96 Oxygen Delivery Method Oxygen Flow Rate 05/31/23 06:45 05/31/23 07:00 05/31/23 07:00 Temperature Pulse Rate 91 H 87 Respiratory Rate 22 13 Blood Pressure 99/54 L Pulse Oximetry 94 97 Oxygen Delivery Method Oxygen Flow Rate 05/31/23 07:15 05/31/23 07:15 05/31/23 07:30 Temperature 98 F Pulse Rate 95 H 98 H Respiratory Rate 14 20 Blood Pressure 95/53 L Pulse Oximetry 96 97 Oxygen Delivery Method Oxygen Flow Rate 05/31/23 07:30 05/31/23 07:36 05/31/23 07:45 Temperature Pulse Rate 91 H 95 H Respiratory Rate 25 H Blood Pressure 101/57 L Pulse Oximetry 98 98 Oxygen Delivery Method Oximask Oxygen Flow Rate 3 05/31/23 07:45 05/31/23 08:00 05/31/23 08:01 Temperature Pulse Rate 98 H Respiratory Rate 26 H Blood Pressure 109/60 114/59 L Pulse Oximetry 96 Oxygen Delivery Method Oxygen Flow Rate 05/31/23 08:01 05/31/23 08:15 05/31/23 08:15 Temperature Pulse Rate 94 H 94 H Respiratory Rate 30 H 21 Blood Pressure 105/57 L Pulse Oximetry 96 94 Oxygen Delivery Method Oxygen Flow Rate 05/31/23 08:30 05/31/23 08:30 05/31/23 08:45 Temperature Pulse Rate 92 H Respiratory Rate 25 H Blood Pressure 107/60 115/71 Pulse Oximetry 95 Oxygen Delivery Method Oxygen Flow Rate 05/31/23 08:45 05/31/23 09:00 05/31/23 09:00 Temperature Pulse Rate 101 H 111 H Respiratory Rate 28 H 25 H Blood Pressure 110/55 L Pulse Oximetry 94 94 Oxygen Delivery Method Oxygen Flow Rate 05/31/23 09:00 05/31/23 09:15 05/31/23 09:15 Temperature Pulse Rate 98 H Respiratory Rate 32 H Blood Pressure 112/54 L Pulse Oximetry 95 Oxygen Delivery Method Room Air Oxygen Flow Rate 05/31/23 09:23 05/31/23 09:30 05/31/23 09:31 Temperature Pulse Rate 118 H 143 H Respiratory Rate 22 Blood Pressure 112/54 L 99/67 Pulse Oximetry 94 Oxygen Delivery Method Oxygen Flow Rate 05/31/23 09:31 05/31/23 09:45 05/31/23 09:45 Temperature Pulse Rate 139 H 125 H Respiratory Rate 24 26 H Blood Pressure 105/55 L Pulse Oximetry 94 96 Oxygen Delivery Method Oxygen Flow Rate 05/31/23 10:00 05/31/23 10:00 05/31/23 10:01 Temperature Pulse Rate 148 H 120 H Respiratory Rate 29 H Blood Pressure 127/55 L Pulse Oximetry 94 Oxygen Delivery Method Oxygen Flow Rate 05/31/23 10:01 05/31/23 10:15 05/31/23 10:15 Temperature Pulse Rate 149 H 142 H Respiratory Rate 26 H 27 H Blood Pressure 107/53 L Pulse Oximetry 95 95 Oxygen Delivery Method Oxygen Flow Rate 05/31/23 10:30 05/31/23 10:30 05/31/23 11:00 Temperature Pulse Rate 140 H 127 H Respiratory Rate 21 33 H Blood Pressure 106/54 L Pulse Oximetry 95 Oxygen Delivery Method Oxygen Flow Rate 05/31/23 11:30 05/31/23 12:00 Temperature Pulse Rate 156 H 158 H Respiratory Rate 16 22 Blood Pressure Pulse Oximetry 88 L Oxygen Delivery Method Oxygen Flow Rate Oxygen Delivery Method Room Air Oxygen Flow Rate 3 Narrative Exam Narrative: GEN: no acute distress HEENT: dry mucous membranes PULM: clear bilaterally CV: regular rate and rhythm, no murmurs ABD: improved distension, mild tenderness diffusely, no rebound/guarding NEURO: awake, alert, no focal deficits Objective Labs 05/31/23 04:48 05/31/23 04:48 Labs: Laboratory Results - last 24 hr 05/31/23 05/31/23 05/31/23 01:50 02:20 02:40 WBC 7.2 RBC 3.16 L Hgb 10.2 L Hct 30.1 L MCV 95.2 MCH 32.3 MCHC 33.9 RDW 12.4 Plt Count 246 Neut % (Auto) 89.4 H Lymph % (Auto) 6.2 L Cooper % (Auto) 3.0 Eos % (Auto) 1.3 L Baso % (Auto) 0.1 Neut # (Auto) 6400 Lymph # (Auto) 400 L Cooper # (Auto) 200 Eos # (Auto) 100 Baso # (Auto) 0 Sodium 125 L Potassium 4.3 Chloride 101 Carbon Dioxide 19 L BUN 14 Creatinine 0.49 L Estimated GFR > 60 BUN/Creatinine Ratio 28.6 H Glucose 87 Lactate 1.3 Calcium 7.8 L Magnesium 1.7 Total Bilirubin 1.2 AST 22 ALT 15 Alkaline Phosphatase 47 Troponin I < 0.012 Total Protein 5.0 L Albumin 2.5 L Globulin 2.5 Albumin/Globulin Ratio 1.0 Nasal Screen MRSA (PCR) Not detected 05/31/23 04:48 WBC 7.0 RBC 2.95 L Hgb 9.7 L Hct 28.1 L MCV 95.3 MCH 32.8 MCHC 34.4 RDW 12.0 Plt Count 248 Neut % (Auto) 89.3 H Lymph % (Auto) 6.0 L Cooper % (Auto) 3.1 Eos % (Auto) 1.4 L Baso % (Auto) 0.2 Neut # (Auto) 6200 Lymph # (Auto) 400 L Cooper # (Auto) 200 Eos # (Auto) 100 Baso # (Auto) 0 Sodium 126 L Potassium 4.4 Chloride 102 Carbon Dioxide 18 L BUN 14 Creatinine 0.48 L Estimated GFR > 60 BUN/Creatinine Ratio 29.2 H Glucose 83 Lactate Calcium 8.0 L Magnesium 1.7 Total Bilirubin AST ALT Alkaline Phosphatase Troponin I Total Protein Albumin Globulin Albumin/Globulin Ratio Nasal Screen MRSA (PCR) [facility] Medical History Scoliosis Glaucoma Depression Dqsgsmf-Iwxfy-Qtekh disease Colon polyps Barretts esophagus Surgical History Hx of hernia repair (07/20/22) Hx of hernia repair (05/18/22) Status post endoscopy Status post colonoscopy History of knee replacement History of knee replacement Status post cholecystectomy Status post hernia repair (08/11/89) Status post hysterectomy Family History Father Heart disease Hypertension High cholesterol Stomach cancer Stroke Grandfather CVA (cerebral infarction) Mother Cancer of breast Social History marital status: household members: family lives independently: Yes education level: master's degree occupational status: other Smoking Status: Current every day smoker alcohol intake: current Assessment & Plan Assessment & Plan narrative: 1. Acute nausea and vomiting suspect secondary to ileus/constipation secondary to recent hernia repair -had hernia repair recently -CT scan shows free air, per surgery and radiology this is expected for laparoscopic repair yesterday -CT also noted distended stomach and stool in colon -surgery consulted, suspect possible ileus/constipation as worsening symptoms -ordered enema/suppository, continue aggressive laxative therapies with bisacodyl, miralax, colace, along with enemas. If no improvement by this afternoon will order methylnaltrexone. -suspect has reflux which has worsened, ordered PPI -avoid opiates if possible 2. Acute vomiting of blood, resolved -suspect secondary radha keith tear -trend hemoglobin closely, has been stable thus far. No plan for endoscopy -avoid anticoagulants for now -PPI BID IV ordered 3. Paroxysmal afib -new diagnosis -not in afib on admission, but intermittently goes into afib with no seeming response to medications. -keep on tele -suspect secondary to above ileus, distension and pain. Suspect this will improve with bowel movements and has not responded to medications given thus far. -magnesium low, potassium slightly low, ordered replacement -will start regular metoprolol for rate control, increased to BID today. -ordered ECHO with some diastolic dysfunction, but no valve abnormalities and normal EF. -no anticoagulation for now given hematemesis on admit 4. Charcot jacobo tooth, neuropathy -chronic, at baseline 5. Hyponatremia - possibly secondary to hypovolemia - continue IV fluids for now, with caution due to rapid rate. Code: Full Surrogate: Son Dispo: Probable SNF after resumption of bowel movements and improvement in afib. Discussed with surgery, case management for additional history and to formulate the above assessement and plan.
--- NOTE | 2023-05-31 16:06 | P.PN_ITS ---
Subjective Subjective Date Patient Seen: 05/31/23 Time Patient Seen: 16:06 Interval history: Transferred to intensive care unit overnight for atrial fibrillation. She remained hemodynamically stable did not require diltiazem drip. Bloated no significant bowel movement. Exam Vital Signs (past 8 hours): - 05/31/23 08:15 05/31/23 08:15 05/31/23 08:30 Temperature Pulse Rate 94 H Respiratory Rate 21 Blood Pressure 105/57 L 107/60 Pulse Oximetry 94 Oxygen Delivery Method 05/31/23 08:30 05/31/23 08:45 05/31/23 08:45 Temperature Pulse Rate 92 H 101 H Respiratory Rate 25 H 28 H Blood Pressure 115/71 Pulse Oximetry 95 94 Oxygen Delivery Method 05/31/23 09:00 05/31/23 09:00 05/31/23 09:00 Temperature Pulse Rate 111 H Respiratory Rate 25 H Blood Pressure 110/55 L Pulse Oximetry 94 Oxygen Delivery Method Room Air 05/31/23 09:15 05/31/23 09:15 05/31/23 09:23 Temperature Pulse Rate 98 H 118 H Respiratory Rate 32 H Blood Pressure 112/54 L 112/54 L Pulse Oximetry 95 Oxygen Delivery Method 05/31/23 09:30 05/31/23 09:31 05/31/23 09:31 Temperature Pulse Rate 143 H 139 H Respiratory Rate 22 24 Blood Pressure 99/67 Pulse Oximetry 94 94 Oxygen Delivery Method 05/31/23 09:45 05/31/23 09:45 05/31/23 10:00 Temperature Pulse Rate 125 H 148 H Respiratory Rate 26 H 29 H Blood Pressure 105/55 L Pulse Oximetry 96 94 Oxygen Delivery Method 05/31/23 10:00 05/31/23 10:01 05/31/23 10:01 Temperature Pulse Rate 120 H 149 H Respiratory Rate 26 H Blood Pressure 127/55 L Pulse Oximetry 95 Oxygen Delivery Method 05/31/23 10:15 05/31/23 10:15 05/31/23 10:30 Temperature Pulse Rate 142 H Respiratory Rate 27 H Blood Pressure 107/53 L 106/54 L Pulse Oximetry 95 Oxygen Delivery Method 05/31/23 10:30 05/31/23 11:00 05/31/23 11:30 Temperature Pulse Rate 140 H 127 H 156 H Respiratory Rate 21 33 H 16 Blood Pressure Pulse Oximetry 95 88 L Oxygen Delivery Method 05/31/23 12:00 05/31/23 12:30 05/31/23 13:00 Temperature Pulse Rate 158 H 106 H 100 H Respiratory Rate 22 29 H 14 Blood Pressure Pulse Oximetry Oxygen Delivery Method 05/31/23 13:30 05/31/23 13:49 05/31/23 13:49 Temperature Pulse Rate 100 H 113 H Respiratory Rate 14 24 Blood Pressure 132/71 Pulse Oximetry Oxygen Delivery Method 05/31/23 14:00 05/31/23 14:30 05/31/23 15:00 Temperature 98.2 F Pulse Rate 107 H 100 H 98 H Respiratory Rate 33 H 19 14 Blood Pressure Pulse Oximetry 97 Oxygen Delivery Method 05/31/23 15:30 05/31/23 16:00 Temperature Pulse Rate 108 H 127 H Respiratory Rate 15 24 Blood Pressure Pulse Oximetry Oxygen Delivery Method Oxygen Delivery Method Room Air Oxygen Flow Rate 3 Narrative Exam Narrative: General adult woman alert oriented no distress Abdomen distention and discomfort. Left groin incision clean dry intact. Objective Labs 05/31/23 04:48 05/31/23 04:48 Labs: Laboratory Results - last 24 hr 05/31/23 05/31/23 05/31/23 01:50 02:20 02:40 WBC 7.2 RBC 3.16 L Hgb 10.2 L Hct 30.1 L MCV 95.2 MCH 32.3 MCHC 33.9 RDW 12.4 Plt Count 246 Neut % (Auto) 89.4 H Lymph % (Auto) 6.2 L [place] % (Auto) 3.0 Eos % (Auto) 1.3 L Baso % (Auto) 0.1 Neut # (Auto) 6400 Lymph # (Auto) 400 L [place] # (Auto) 200 Eos # (Auto) 100 Baso # (Auto) 0 Sodium 125 L Potassium 4.3 Chloride 101 Carbon Dioxide 19 L BUN 14 Creatinine 0.49 L Estimated GFR > 60 BUN/Creatinine Ratio 28.6 H Glucose 87 Lactate 1.3 Calcium 7.8 L Magnesium 1.7 Total Bilirubin 1.2 AST 22 ALT 15 Alkaline Phosphatase 47 Troponin I < 0.012 Total Protein 5.0 L Albumin 2.5 L Globulin 2.5 Albumin/Globulin Ratio 1.0 Nasal Screen MRSA (PCR) Not detected 05/31/23 04:48 WBC 7.0 RBC 2.95 L Hgb 9.7 L Hct 28.1 L MCV 95.3 MCH 32.8 MCHC 34.4 RDW 12.0 Plt Count 248 Neut % (Auto) 89.3 H Lymph % (Auto) 6.0 L [place] % (Auto) 3.1 Eos % (Auto) 1.4 L Baso % (Auto) 0.2 Neut # (Auto) 6200 Lymph # (Auto) 400 L [place] # (Auto) 200 Eos # (Auto) 100 Baso # (Auto) 0 Sodium 126 L Potassium 4.4 Chloride 102 Carbon Dioxide 18 L BUN 14 Creatinine 0.48 L Estimated GFR > 60 BUN/Creatinine Ratio 29.2 H Glucose 83 Lactate Calcium 8.0 L Magnesium 1.7 Total Bilirubin AST ALT Alkaline Phosphatase Troponin I Total Protein Albumin Globulin Albumin/Globulin Ratio Nasal Screen MRSA (PCR) [facility] Medical History Scoliosis Glaucoma Depression Pjzffzl-Ocvik-Kzvtr disease Colon polyps Barretts esophagus Surgical History Hx of hernia repair (07/20/22) Hx of hernia repair (05/18/22) Status post endoscopy Status post colonoscopy History of knee replacement History of knee replacement Status post cholecystectomy Status post hernia repair (08/11/89) Status post hysterectomy Family History Father Heart disease Hypertension High cholesterol Stomach cancer Stroke Grandfather CVA (cerebral infarction) Mother Cancer of breast Social History marital status: household members: family lives independently: Yes education level: master's degree occupational status: other Smoking Status: Current every day smoker alcohol intake: current Assessment & Plan Assessment & Plan narrative: 72-year-old woman with recent left inguinal hernia repair admitted hospital with atrial fibrillation and constipation - increasing bowel regimen to 64 oz MiraLax today -surgical repair healing appropriately -signing off please call with questions
--- NOTE | 2023-05-31 16:50 | CM.DPC ---
DCP Continued LARD REFINER reviewed EMR. Pt moved to ICU due to afib with RVR. Per provider and RN, has not had a BM yet. LARD REFINER communicated with Pt and son Elliot often throughout the day. Elliot continuing to attempt to restart Pt's Medicaid. Son gave completed [employer] application to this LARD REFINER. LARD REFINER gave son advance directives/DPOA paperwork in case he didn't have/couldn't find it at their house. Pt has not been out of bed yet due to afib and reports feeling weak still and wanting SNF. PT/OT unable to work with her today due to patient's afib/elevated HR. LARD REFINER spoke with [facility] Keisha intake rep. She reports that even if patient's medicaid is inactive I can still send expedited referral for [facility] caregiver. LARD REFINER faxed application and expedited referral information. Plan: pending PT/OT recs, patient preference is [facility]. CM team will continue to follow closely for PT/OT rec. TEE Guillermo
[2023-05-31] MEDS: TIMOLOL 0.5% OPHTH 1 DROPS EYE-BOTH (18:33)
[2023-05-31] MEDS: HYDROMORPHONE 1 MG INJ IV (18:40)
[2023-06-01] VITALS (65 sets, daily range): BP systolic 72–122; BP diastolic 50–91; PULSE 82–168; RESP 11–30; TEMP 36.8–37.4; O2SAT 85–97
[2023-06-01] MEDS: METOPROLOL ER 25 MG TABLET 75 MG PO ×2 (04:55→20:22)
--- NOTE | 2023-06-01 05:20 | PC.NURSE ---
Pt started having sustained HR in the 140s-150s. Blood pressures soft, 80s/50s. Pt alert and oriented, other vitals stable. Messaged doctor. Ordered to give morning metoprolol dose early. Pt HR jumping up to 160s-170s. Notified MD. Ordered 500 cc bolus to be given. Pt currently resting in bed.
[2023-06-01 05:35] LABS: Add Manual Diff / Slide Review NO; Basophils Absolute Auto 0 /uL (0-100); Basophils Percent Auto 0.1 % (0-2); Eosinophils Absolute Auto 0 /uL (0-450); Eosinophils Percent Auto 0.3 % (2-4); Hematocrit 30.5 % (36-46); Hemoglobin 10.2 g/dL (12.0-16.0); Lymphocytes Absolute Auto 300 /uL (1100-4500); Lymphocytes Percent Auto 2.5 % (25-40); Mean Corpuscular HGB Conc 33.5 % (30-36); Mean Corpuscular Hemoglobin 31.9 PG (26-34); Mean Corpuscular Volume 95.1 fL (80-100); Monocytes Absolute Auto 300 /uL (0-900); Monocytes Percent Auto 2.3 % (3-14); Neutrophils Absolute Auto 11100 /uL (1500-7000); Neutrophils Percent Auto 94.8 % (50-75); Platelet Count 270 X10^3/uL (150-400); Red Cell Distribution Width 12.2 % (11.6-14.8); White Blood Cell Count 11.7 X10^3/uL (4.5-11.0)
[2023-06-01 05:44] LABS: Blood Urea Nitrogen 18 mg/dL (7-17); Calcium 7.8 mg/dL (8.4-10.2); Carbon Dioxide 15 mmol/L (22-32); Chloride 104 mmol/L (98-107); Estimated Glomerular Filt Rate > 60 mL/min (>60); Glucose 81 mg/dL (80-110); HEMOLYSIS < 15 (0-50); Potassium 4.4 mmol/L (3.4-5.1); Sodium 126 mmol/L (137-145)
[2023-06-01] MEDS: SODIUM CHLORIDE 0.9% 500 ML 1000 ML IV (05:48)
[2023-06-01] MEDS: PANTOPRAZOLE 40 MG VIAL IV ×2 (07:48→20:31)
[2023-06-01] MEDS: polyethylene glycoL 3350 17 GM POWD.PACK 34 GM PO (07:48)
[2023-06-01] MEDS: BISACODYL 5 MG TABLET 10 MG PO (07:49)
[2023-06-01] MEDS: ACETAMINOPHEN 325 MG TABLET 650 MG PO ×2 (07:49→22:42)
[2023-06-01] MEDS: DOCUSATE 100 MG CAPSULE 200 MG PO ×2 (07:49→20:22)
[2023-06-01] MEDS: SODIUM CHLORIDE 0.9% FLUSH 10 ML IV ×2 (07:53→20:23)
[2023-06-01] MEDS: TIMOLOL 0.5% OPHTH 1 DROPS EYE-BOTH ×2 (08:01→20:24)
--- NOTE | 2023-06-01 08:28 | CM.DPNOTE ---
DCP Note Reviewed chart. Placed call to [facility] admissions, had to LM with referral information. If patient would benefit from a SNF stay, a SNF will need to be secured and an auth obtained from [facility]. CM team following clinical course closely. No therapy eval or notes yet in the chart. PERRI
[2023-06-01] MEDS: DIGOXIN 500 MCG/2 ML AMPUL 250 MCG IV ×3 (09:31→20:22)
[2023-06-01] MEDS: METHYLNALTREXONE 12 MG/0.6 ML VIAL 6 MG SUBCUT (09:32)
--- NOTE | 2023-06-01 10:37 | PT.IIE ---
Current Diagnoses Postprocedural intestinal obstruction, unspecified as to partial versus complete (05/30/23) Hematemesis (05/30/23) Left lower quadrant pain (05/30/23) Unspecified abdominal pain (05/30/23) Surgical History (Last Reviewed 05/29/23 @ 11:20 by Allen Fajardo MD) History of knee replacement History of knee replacement Hx of hernia repair (05/18/22) Hx of hernia repair (07/20/22) Status post cholecystectomy Status post colonoscopy Status post endoscopy Status post hernia repair (08/11/89) Status post hysterectomy Medical History (Last Reviewed 05/29/23 @ 11:20 by Allen Fajardo MD) Barretts esophagus Ibhqwsn-Xmpju-Fxbqo disease Colon polyps Depression Glaucoma Scoliosis Physical Therapy Inpatient Evaluation/Re-Eval M1 PT/OT-IP Prior Functional Status Start: 05/30/23 14:37 Freq: NEEDED Status: Active Protocol: Document 06/01/23 10:37 AB (Rec: 06/01/23 12:45 AB [id number]) Medical Review Prior Functional Status Medical History Reviewed Yes Communication able to make needs known but with slight confusion Mobility and Gait pt stated that she was modified independent with all mobilities and ambulation using 2 walking sticks for outdoor mobility but without AD indoors but tends to furniture cruise Social History Household Members none Living Arrangements House Number of Floors (Floors) Two Floors Number of Stairs To Enter/Railing? pt lives in a cabin in [place]: 2 steps L rail ascending to the porch + 1 step R grab bar to enter the house has 1 step R grab bar up to the kitchen Additional Social History Comment pt lives in the same property (~ 5 acres lot) as her son but son will not be able to stay with pt pt does not have a shower/ bathroom: sponge bath and uses a bedside commode M2 PT-IP Current Condition Start: 05/30/23 14:37 Freq: NEEDED Status: Active Protocol: Document 06/01/23 10:37 AB (Rec: 06/01/23 12:45 AB [email or web address]) Physical Therapy Current Condition Current Condition Evaluation Date 06/01/23 Treatment Diagnosis ileus s/p L inguinal hernia repair; afib; difficulty in walking Onset Date 05/30/23 M3 PT-IP Subjective Start: 05/30/23 14:37 Freq: NEEDED Status: Active Protocol: Document 06/01/23 10:37 AB (Rec: 06/01/23 12:45 AB [email or web address]) Subjective Physical Therapy Visit Type Type Initial Evaluation Visit Start Time 10:37 Visit Stop Time 11:27 Total Visit Minutes 50 Notes spoke with nurse and pt continue to have high HR: ~ 120s and BP: ~90s/50s. nurse stated that pt's symptoms are all related to her decrease bowel motility and pt needs to move to assist with BM movement. nurse cleared pt to work with PT. Number of TELEPHONE CLERK TELEGRAPH OFFICE Visits 0 Therapy Pain Assessment Pain When Pain Assessed At Rest Pain Present Pain Present Pain Reported Location abd Scale Used pain scale not stated but c/o severe pain Pain Management Techniques Distraction,Modification of Treatment,Re-positioning, Timing of Activity with Medications M4 PT-IP Mobility and Gait Start: 05/30/23 14:37 Freq: NEEDED Status: Active Protocol: Document 06/01/23 10:37 AB (Rec: 06/01/23 12:45 AB [email or web address]) PT-Bed Mobility Assessment Rolling Type of Rolling Log Rolling Level of Assist Maximal Assistance,1 Person Assistance,2 Person Assistance Supine to Sit Supine to Sit Maximum Assistance,1 Person Assistance,2 Person Assistance ,Bedrails Sit to Supine Sit to Supine Maximum Assistance,Total Assistance,2 Person Assistance ,Bedrails Scooting Scooting to Edge of Bed Minimal Assistance PT-Transfer Assessment Sit to and From Stand Sit to and from Stand Maximum Assistance,2 Person Assistance,Use of Upper Extremities Equipment Transfer Assistive Device Gait Belt,Front Wheeled Walker Orthotic/Prosthetic Devices or Brace: No Comments Mobility Comments BP in supine: 87/57 NH: 127- 128. pt uses B AFO when ambulating but stated that she was able to take a few steps at home without AFO to chair and puts AFOs on afterwards for walking . pt completed supine to sit log roll max A x 1-2 and max cues and use of bed rail to assist and HOB elevated ~ 20 deg. pt requiring mod A for sitting balance on EOB with increase posterior trunk lean in seating. pt required max cues with all tasks and presents with slow processing of instructions and with confusion. BP in sittin/ 91 HR: 132. pt completed sit to stand x 2 attempts max A x 2 and max cues. pt able to stand using FWW for support requiring max A x 2 for balance but pt unable to move BLE to transfer and requested to sit back on the EOB. pt presents with increase sweating and c/o lightheadedness. NH: 145 after standing. assisted pt to supine requiring max A x 2 to total A x 2 and max cues. positioned pt in bed. call light and table placed within reach. BP checked in supine: 82/53. PT-Balance Assessment Sitting Balance and Reactions Static Sitting Balance Ability Fair Dynamic Sitting Balance Ability Poor Standing Balance and Reactions Static Standing Balance Ability Poor Dynamic Standing Balance Ability Poor Device Used FWW M5 PT-IP Objective Assessments Start: 05/30/23 14:37 Freq: NEEDED Status: Active Protocol: Document 06/01/23 10:37 AB (Rec: 06/01/23 12:45 AB [email or web address]) Orientation Orientation/Cognition Level of Alertness Confusional State Orientation Name,Place,Situation Safety Awareness Decreased Safety Awareness Memory Description Short Term Impaired Gross Range of Motion Lower Extremity ROM Assessment Within Functional Limits Strength Lower Extremity Strength Assessment Bilaterally Impaired Hip 3+/5 Knee 3-/5 Ankle 1/5 Sensation Assessment Sensation Gross Sensation Right UE Impaired,Left UE Impaired,Right LE Impaired, Left LE Impaired Sensation Description Numbness Comments Sensation Comments 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 Muscle Tone Muscle Tone WNL Yes M6 PT-IP Treatment Start: 05/30/23 14:37 Freq: NEEDED Status: Active Protocol: Document 06/01/23 10:37 AB (Rec: 06/01/23 12:45 AB [email or web address]) Physical Therapy Treatment Education Education Provided Safety M7 PT-IP Assessment and Plan Start: 05/30/23 14:37 Freq: NEEDED Status: Active Protocol: Document 06/01/23 10:37 AB (Rec: 06/01/23 12:45 AB [email or web address]) PT Summary Assessment and Plan Potential Rehabilitation Potential Fair Status of Condition at Evaluation Unstable Summary Impairments Pain,ROM,Strength,Balance, Coordination,Sensation,Tone, Cognition,Bed Mobility, Transfers,Gait,Activity Tolerance Assessment Summary pt is a 72 y/o F who underwent L inguinal hernia repair 07/19 and went home. pt presented with hematemesis and was brought to the ED next day after d/c home. pt admitted for A-fb and ileus. pt requiring max A x 2 to total A x 2 with bed mobility. pt was unable to complete a transfer but able to stand using fWW for support max A x 2 an max cues. pt has decrease BP after standin /53 and increase HR to 145. pt also has Charcot-Beckie- Tooth dse presenting with overall joint dse and weakness (bilateral foot drop ) affecting mobility. pt at this time will require SNF rehab to improve overall strength and mobility independence. Goals Bed Mobility Goal Minimal Assistance Transfer Goal Minimal Assistance,Front Wheeled Walker Gait Goal Minimal Assistance,Front Wheel Walker Gait Distance 50 Other Goals improve bed mobility, transfers, ambulation using LRAD ~ 150 ft mod I up/down 2 steps L rail ascending + 1 step R rail ascending : SBA Days to Meet Goals 10 Frequency of Treatment Frequency Of Treatment Once a Day Treatment Plan Physical Therapy Treatment Plan Bed Mobility Training,Transfer Training,Gait Training, Therapeutic Exercise,Balance Retraining,Post Op Education, Discharge Planning,Hot or Cold Pack,Neuromuscular Re-ed, Coordination Retraining,Manual Therapy Precautions Abdominal Surgery Precautions Log Roll,Lifting Restrictions, Gait Belt above Incisional Area Recommendations To Nursing Amount of Assist Needed Mechanical Lift Discharge Recommendations PT Discharge Recommendations SNF Rehab Equipment Needed for Home Before FWW if pt goes home Discharge Transportation Needs at Discharge Wheelchair/Cabulance,Stretcher /Ambulance
--- NOTE | 2023-06-01 12:06 | P.PN_ITS ---
Subjective Subjective Date Patient Seen: 06/01/23 Time Patient Seen: 12:06 Interval history: Continues to have gas with no bowel movement. Continues to have afib with RVR. Ordered for digoxin 250 mg q6 today, also Methylnaltrexone. Exam Vital Signs (past 8 hours): - 06/01/23 04:30 06/01/23 04:30 06/01/23 04:51 Temperature Pulse Rate 147 H 165 H Respiratory Rate 14 20 Blood Pressure 84/50 L Pulse Oximetry 93 Oxygen Delivery Method Oxygen Flow Rate 06/01/23 04:51 06/01/23 04:55 06/01/23 04:59 Temperature Pulse Rate 144 H 166 H Respiratory Rate 24 Blood Pressure 92/51 L 92/51 L Pulse Oximetry 95 Oxygen Delivery Method Oxygen Flow Rate 06/01/23 05:00 06/01/23 05:00 06/01/23 05:00 Temperature 99.4 F Pulse Rate 82 166 H Respiratory Rate 18 19 Blood Pressure 92/51 L 99/56 L Pulse Oximetry 97 95 Oxygen Delivery Method Oxygen Flow Rate 06/01/23 05:14 06/01/23 05:14 06/01/23 05:16 Temperature Pulse Rate 166 H 168 H Respiratory Rate 18 25 H Blood Pressure 72/55 L Pulse Oximetry 95 96 Oxygen Delivery Method Oxygen Flow Rate 06/01/23 05:16 06/01/23 05:30 06/01/23 05:30 Temperature Pulse Rate 159 H Respiratory Rate 17 Blood Pressure 86/54 L 86/62 L Pulse Oximetry 97 Oxygen Delivery Method Oxygen Flow Rate 06/01/23 05:31 06/01/23 05:46 06/01/23 05:46 Temperature Pulse Rate 160 H 157 H Respiratory Rate 21 Blood Pressure 86/62 L 98/55 L Pulse Oximetry 95 Oxygen Delivery Method Oxygen Flow Rate 06/01/23 06:00 06/01/23 06:00 06/01/23 06:15 Temperature Pulse Rate 154 H 154 H Respiratory Rate 13 17 Blood Pressure 83/52 L Pulse Oximetry 97 96 Oxygen Delivery Method Oxygen Flow Rate 06/01/23 06:15 06/01/23 06:30 06/01/23 06:30 Temperature Pulse Rate 138 H Respiratory Rate 16 Blood Pressure 93/56 L 94/50 L Pulse Oximetry 95 Oxygen Delivery Method Oxygen Flow Rate 06/01/23 07:52 06/01/23 08:00 06/01/23 09:31 Temperature Pulse Rate 147 H 148 H Respiratory Rate 22 Blood Pressure 100/58 L Pulse Oximetry 94 Oxygen Delivery Method Room Air Oxygen Flow Rate 0 Oxygen Delivery Method Room Air Oxygen Flow Rate 0 Narrative Exam Narrative: GEN: no acute distress HEENT: dry mucous membranes PULM: clear bilaterally CV: regular rate and rhythm, no murmurs ABD: improved distension, mild tenderness diffusely, no rebound/guarding NEURO: awake, alert, no focal deficits Objective Labs 06/01/23 04:54 06/01/23 04:54 Labs: Laboratory Results - last 24 hr 06/01/23 04:54 WBC 11.7 H D RBC 3.20 L Hgb 10.2 L Hct 30.5 L MCV 95.1 MCH 31.9 MCHC 33.5 RDW 12.2 Plt Count 270 Neut % (Auto) 94.8 H Lymph % (Auto) 2.5 L [place] % (Auto) 2.3 L Eos % (Auto) 0.3 L Baso % (Auto) 0.1 Neut # (Auto) 66921 H Lymph # (Auto) 300 L [place] # (Auto) 300 Eos # (Auto) 0 Baso # (Auto) 0 Sodium 126 L Potassium 4.4 Chloride 104 Carbon Dioxide 15 L BUN 18 H Creatinine 0.50 L Estimated GFR > 60 BUN/Creatinine Ratio 36.0 H Glucose 81 Calcium 7.8 L Magnesium 2.0 PFSH Medical History Scoliosis Glaucoma Depression Nylkjac-Qswoo-Tsnor disease Colon polyps Barretts esophagus Surgical History Hx of hernia repair (07/20/22) Hx of hernia repair (05/18/22) Status post endoscopy Status post colonoscopy History of knee replacement History of knee replacement Status post cholecystectomy Status post hernia repair (08/11/89) Status post hysterectomy Family History Father Heart disease Hypertension High cholesterol Stomach cancer Stroke Grandfather CVA (cerebral infarction) Mother Cancer of breast Social History marital status: household members: family lives independently: Yes education level: master's degree occupational status: other Smoking Status: Current every day smoker alcohol intake: current Assessment & Plan Assessment & Plan narrative: 1. Acute nausea and vomiting suspect secondary to ileus/constipation secondary to recent hernia repair -had hernia repair recently -CT scan shows free air, per surgery and radiology this is expected for laparoscopic repair yesterday -CT also noted distended stomach and stool in colon -surgery consulted, suspect possible ileus/constipation as worsening symptoms -ordered enema/suppository, continue aggressive laxative therapies with bisacodyl, miralax, colace, along with enemas. Ordered methylnaltrexone. Consider disimpaction if no resolution. -suspect has reflux which has worsened, ordered PPI -avoid opiates if possible 2. Acute vomiting of blood, resolved -suspect secondary radha keith tear -trend hemoglobin closely, has been stable thus far. No plan for endoscopy -avoid anticoagulants for now -PPI BID IV ordered 3. Paroxysmal afib -new diagnosis -not in afib on admission, but intermittently goes into afib with no seeming response to medications. -keep on tele -suspect secondary to above ileus, distension and pain. Suspect this will improve with bowel movements and has not responded to medications given thus far. Will give digoxin 250 mcg q6 hr today. Then daily if rate is improved. -magnesium low, potassium slightly low, ordered replacement -will start regular metoprolol for rate control, increased to BID today. -ordered ECHO with some diastolic dysfunction, but no valve abnormalities and normal EF. -no anticoagulation for now given hematemesis on admit, can likely start on discharge. 4. Charcot jacobo tooth, neuropathy -chronic, at baseline 5. Hyponatremia - possibly secondary to hypovolemia - continue IV fluids for now, with caution due to rapid rate. Code: Full Surrogate: Son Dispo: Probable SNF after resumption of bowel movements and improvement in afib. Discussed with surgery, case management for additional history and to formulate the above assessement and plan.
--- NOTE | 2023-06-01 14:09 | OT.IPNOTE ---
Checked with pt's nurse for OT eval. Nurse states best to hold OT eval and pt still constipated and already able to tried to get up with PT earlier. To check on the pt tomorrow.
[2023-06-01] MEDS: SODIUM CHLORIDE 0.9% 1,000 ML 100 ML IV (14:48)
[2023-06-01] MEDS: OXYCODONE IR 5 MG TABLET PO (16:11)
--- NOTE | 2023-06-01 17:26 | PC.NURSE ---
Addendum entered by Yamilka Key R.N. 06/01/23 18:46: Pt in NSR with PVCs with rate in the 80s at 1818, Dr. Velazquez notified. Original Note: Day Shift Note Pt alert and oriented x3 with occasional forgetfulness. Abdomen very distended and firm, BTs present, pt reports passing flatus this afternoon but no BM at this time. Received all scheduled and prn bowel meds this AM. Taking in very little PO due to abdominal distention/fullness. Attempting to avoid opioids for pain control, receiving tylenol and warm blankets. PT in to work with pt but pt was unable to transfer due to increased HR to the 160s and dizziness/diaphoresis/shortness of breath, unsteady on feet. HR has been afib from the 120s to the 150s, received ordered digoxin, BP in the 90s/50s with MAP above 60, MD is aware. Son at bedside. Call light within reach, using appropriately to make needs known.
[2023-06-02] VITALS (55 sets, daily range): BP systolic 71–124; BP diastolic 43–89; PULSE 80–138; RESP 10–23; TEMP 35.7–37; O2SAT 91–99; BMI 26.7
--- NOTE | 2023-06-02 | PATH_ITS ---
[facility] Accession Number: [id number] No. of containers..01 Tissue . 01 Material submitted: . small bowel - SMALL BOWEL . 01 Diagnosis: Small Bowel, Segmental Resections: Segments of small bowel with acute ischemia, perforation and serositis. Extensive fibrous adhesions. See comment. MRV 06/14/2023 1810 Local . 01 Comment: There is embedded foreign material in the fibrous serosa, suggestive of remote/prior perforation. Clinical correlation required. . . . 01 Electronically signed: . Ann Chung MD, Pathologist NPI- [id number] . 01 Gross description: . The specimen is received in formalin, labeled with the patient's name, , and small bowel, and consists of three fragments of small bowel. The first measures 17.2 cm in length by 2.8 cm in average diameter with durand, roughened serosa. A black suture is identified near one stapled end with no designation per the requisition. The staple line nearest the suture is inked blue while the opposite staple line is inked orange and the mesenteric margin is inked green. The serosa is durand and roughened with a full-thickness defect identified measuring 0.5 x 0.4 cm and 3.2 cm from the nearest blue-inked margin, and this area is inked orange. The lumen contains and a small amount of green-brown, semisolid fecal material. The mucosa is green-durand and velvety with an area of luminal narrowing with a diameter of approximately 0.6 cm and located 2.4 cm from the black-inked margin. No polyps or lesions are identified. The albrecht average 0.4 cm thick. No lymph node candidates are identified upon palpation. . The second fragment of bowel measures 6.3 cm in length by 2.3 cm in average diameter with multiple black sutures adjacent to a full-thickness defect measuring 2.1 x 0.9 cm and with no designation per the requisition. The serosa is diffusely roughened. One staple line is inked green, the opposite staple line is inked orange, the mesenteric margin is inked black, and the full-thickness defect is inked blue. The defect measures 2.1 cm from the nearest green-inked margin. The lumen contains no identifiable fecal material. The mucosa is durand and velvety with no polyps or lesions identified. The albrecht average 0.4 cm thick. No lymph nodes are identified upon palpation. . The third fragment of bowel measures 3.2 cm in length by 2.8 cm in diameter with a full-thickness defect measuring 2.2 x 2.2 cm and located equidistant from both staple lines. One staple line is inked blue, the opposite staple line is inked orange, the mesenteric margin is inked green, and the edge of the full-thickness defect is inked black. The lumen contains no fecal material. The mucosa is durand and velvety with normal appearing folds, and no polyps or lesions are identified. The albrecht average 0.3 cm thick. No lymph node candidate is identified upon palpation. . Container Packer Operator sections are submitted as follows: Fragment 1: A1: Container Packer Operator margins. A2: Area of defect. A3: Unremarkable full-thickness sections. . Fragment 2: A4: Container Packer Operator margins. A5: Area of defect. A6: Unremarkable sections. . Fragment 3: A7: Container Packer Operator margins. A8: Defect. A9: Unremarkable sections. ([id number]) /FRR 06/04/2023 1549 Local . 01 Pathologist provided ICD-10: K55.019, K63.1 . 01 CPT . 607241 Specimen Comment: A courtesy copy of this report has been sent to [phone] Performed at: 01 [facility] [address] [place] [address], [place], [place] [id number] MD Naveed Gardiner MD Phone: [phone]
[2023-06-02] MEDS: SODIUM CHLORIDE 0.9% 1,000 ML 100 ML IV ×3 (00:42→18:47)
[2023-06-02] MEDS: DIGOXIN 500 MCG/2 ML AMPUL 250 MCG IV (02:49)
[2023-06-02 04:25] LABS: Add Manual Diff / Slide Review YES; Hematocrit 32.1 % (36-46); Hemoglobin 10.8 g/dL (12.0-16.0); Mean Corpuscular HGB Conc 33.8 % (30-36); Mean Corpuscular Hemoglobin 31.8 PG (26-34); Mean Corpuscular Volume 94.1 fL (80-100); Platelet Count 278 X10^3/uL (150-400); Red Blood Cell Count 3.41 X10^6/uL (4.0-5.2); Red Cell Distribution Width 12.8 % (11.6-14.8)
[2023-06-02 04:35] LABS: BUN Creatinine Ratio 43.8 (6-22); Blood Urea Nitrogen 28 mg/dL (7-17); Carbon Dioxide 13 mmol/L (22-32); Chloride 105 mmol/L (98-107); Estimated Glomerular Filt Rate > 60 mL/min (>60); Glucose 89 mg/dL (80-110); HEMOLYSIS < 15 (0-50); Magnesium 2.1 mg/dL (1.6-2.3); Potassium 4.7 mmol/L (3.4-5.1); Sodium 127 mmol/L (137-145)
[2023-06-02 04:59] LABS: Neutrophils Absolute Manual 12180 /uL (3000-5900); Total Cells Counted 100
[2023-06-02 05:00] LABS: Anisocytosis 1+; Burr Cells 3+; Polychromasia 1+
[2023-06-02] MEDS: DOCUSATE 100 MG CAPSULE 200 MG PO (09:15)
[2023-06-02] MEDS: OXYCODONE IR 5 MG TABLET PO (09:15)
[2023-06-02] MEDS: PANTOPRAZOLE 40 MG VIAL IV (09:15)
[2023-06-02] MEDS: polyethylene glycoL 3350 17 GM POWD.PACK 34 GM PO (09:16)
[2023-06-02] MEDS: TIMOLOL 0.5% OPHTH 1 DROPS EYE-BOTH (09:18)
[2023-06-02] MEDS: SODIUM CHLORIDE 0.9% FLUSH 10 ML IV ×2 (09:21→22:16)
[2023-06-02] MEDS: METOPROLOL ER 25 MG TABLET PO (10:03)
--- NOTE | 2023-06-02 11:02 | OT.IPNOTE ---
Attempted to do OT eval and pt states in too much pain and to come back in PM. Nursing notified.
--- NOTE | 2023-06-02 11:10 | PT.IPTN ---
Current Diagnoses Postprocedural intestinal obstruction, unspecified as to partial versus complete (05/30/23) Hematemesis (05/30/23) Left lower quadrant pain (05/30/23) Unspecified abdominal pain (05/30/23) Physical Therapy Treatment Note M2 PT-IP Current Condition Start: 05/30/23 14:37 Freq: NEEDED Status: Active Protocol: Document 06/01/23 10:37 AB (Rec: 06/01/23 12:45 AB [id number]) Physical Therapy Current Condition Current Condition Evaluation Date 06/01/23 Treatment Diagnosis ileus s/p L inguinal hernia repair; afib; difficulty in walking Onset Date 05/30/23 M3 PT-IP Subjective Start: 05/30/23 14:37 Freq: NEEDED Status: Active Protocol: Document 06/02/23 12:46 TS (Rec: 06/02/23 13:09 TS [id number]) Subjective Physical Therapy Visit Type Type Treatment Note Visit Start Time 11:10 Visit Stop Time 11:50 Total Visit Minutes 40 Number of RESISTOR 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 She is agreeable to try and transfer to [facility] for attempt at BM. Therapy Pain Assessment Pain When Pain Assessed During Mobility Pain Present Pain Present Pain Reported M4 PT-IP Mobility and Gait Start: 05/30/23 14:37 Freq: NEEDED Status: Active Protocol: Document 06/02/23 12:46 TS (Rec: 06/02/23 13:09 TS [id number]) PT-Bed Mobility Assessment Supine to Sit Supine to Sit Maximum Assistance,1 Person Assistance,2 Person Assistance Scooting Scooting to Edge of Bed Maximum Assistance PT-Transfer Assessment Comments Mobility Comments Supine to sit with HOB elevated MaxA x1 with max cues for handrail and BUE support. She sat EOB ~10mins initially MaxA x1, progressed to Palmira/ CGA at times, requires cues for BUE support. Attempted to have pt perform sit to stand, unable to don orthotic shoes but could not due to swelling in feet. Pt reports not having urge to have BM and was agreeable to get in chair. Performed hunter lift with nursing to chair for pt to eat lunch, she had some discomfort. Pt was left sitting in chair, all needs met. Gait Assessment Comments Gait Comments Not at this time PT-Balance Assessment Sitting Balance and Reactions Static Sitting Balance Ability Fair Dynamic Sitting Balance Ability Poor M5 PT-IP Objective Assessments Start: 05/30/23 14:37 Freq: NEEDED Status: Active Protocol: Document 06/01/23 10:37 AB (Rec: 06/01/23 12:45 AB [id number]) Orientation Orientation/Cognition Level of Alertness Confusional State Orientation Name,Place,Situation Safety Awareness Decreased Safety Awareness Memory Description Short Term Impaired Gross Range of Motion Lower Extremity ROM Assessment Within Functional Limits Strength Lower Extremity Strength Assessment Bilaterally Impaired Hip 3+/5 Knee 3-/5 Ankle 1/5 Sensation Assessment Sensation Gross Sensation Right UE Impaired,Left UE Impaired,Right LE Impaired, Left LE Impaired Sensation Description Numbness Comments Sensation Comments 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 Muscle Tone Muscle Tone WNL Yes M6 PT-IP Treatment Start: 05/30/23 14:37 Freq: NEEDED Status: Active Protocol: Document 06/02/23 12:46 TS (Rec: 06/02/23 13:09 TS [id number]) Physical Therapy Treatment Education Education Provided Safety M7 PT-IP Assessment and Plan Start: 05/30/23 14:37 Freq: NEEDED Status: Active Protocol: Document 06/02/23 12:46 TS (Rec: 06/02/23 13:09 TS [id number]) PT Summary Assessment and Plan Potential Rehabilitation Potential Fair Summary Impairments Pain,ROM,Strength,Balance, Coordination,Sensation,Tone, Cognition,Bed Mobility, Transfers,Gait,Activity Tolerance Progress Towards Goals Slow Progress due to Pain,Slow Progress due to Medical Issues,Slow Progress due to Activity Tolerance Assessment Summary Ann continues to make slow progress with her mobility. She is MaxA x2 for supine to sit and initially sitting EOB. She progressed to Palmira /CGA at times sitting EOB, UEs quickly fatigue and requires more support. Could not progress pt to standing due to fatigue and being unable to don orthotic shoes due to swelling in feet. PT continues to recommend SNF rehab at this time. Goals Bed Mobility Goal Minimal Assistance Transfer Goal Minimal Assistance,Front Wheeled Walker Gait Goal Minimal Assistance,Front Wheel Walker Gait Distance 50 Other Goals improve bed mobility, transfers, ambulation using LRAD ~ 150 ft mod I up/down 2 steps L rail ascending + 1 step R rail ascending : SBA Days to Meet Goals 10 Frequency of Treatment Frequency Of Treatment Once a Day Treatment Plan Physical Therapy Treatment Plan Bed Mobility Training,Transfer Training,Gait Training, Therapeutic Exercise,Balance Retraining,Post Op Education, Discharge Planning,Hot or Cold Pack,Neuromuscular Re-ed, Coordination Retraining,Manual Therapy Precautions Abdominal Surgery Precautions Log Roll,Lifting Restrictions, Gait Belt above Incisional Area Recommendations To Nursing Amount of Assist Needed Mechanical Lift Discharge Recommendations PT Discharge Recommendations SNF Rehab Equipment Needed for Home Before FWW if pt goes home Discharge Transportation Needs at Discharge Wheelchair/Cabulance,Stretcher /Ambulance
--- NOTE | 2023-06-02 11:54 | OT.IP.EVAL ---
Current Diagnoses Postprocedural intestinal obstruction, unspecified as to partial versus complete (05/30/23) Hematemesis (05/30/23) Left lower quadrant pain (05/30/23) Unspecified abdominal pain (05/30/23) Past Medical History (Last Reviewed 05/29/23 @ 11:20 by Allen Fajardo MD) Barretts esophagus Sjjoixm-Exlzt-Bwvcm disease Colon polyps Depression Glaucoma Scoliosis Surgical History (Last Reviewed 05/29/23 @ 11:20 by Allen Fajardo MD) History of knee replacement History of knee replacement Hx of hernia repair (05/18/22) Hx of hernia repair (07/20/22) Status post cholecystectomy Status post colonoscopy Status post endoscopy Status post hernia repair (08/11/89) Status post hysterectomy Occupational Therapy Inpatient Evaluation/Re-Eval M1 PT/OT-IP Prior Functional Status Start: 06/02/23 12:01 Freq: NEEDED Status: Active Protocol: Document 06/02/23 11:05 [facility] (Rec: 06/02/23 13:13 [facility] [id number]) Medical Review Prior Functional Status Medical History Reviewed Yes Communication able to make needs known but with slight confusion Mobility and Gait pt stated that she was modified independent with all mobilities and ambulation using 2 walking sticks for outdoor mobility but without AD indoors but tends to furniture cruise Activities of Daily Living and IADL's Pt able to do all her ADL's, IADl's and drives. Pt states will stop driving at this time . Prior Functional Level (Other details) Pt lives alone but states her son live on the property. Social History Household Members none Living Arrangements House Number of Floors (Floors) Two Floors Number of Stairs To Enter/Railing? pt lives in a cabin in [place]: 2 steps L rail ascending to the porch + 1 step R grab bar to enter the house has 1 step R grab bar up to the kitchen Additional Social History Comment pt lives in the same property (~ 5 acres lot) as her son but son will not be able to stay with pt pt does not have a shower/ bathroom: sponge bath and uses a bedside commode M2 OT-IP Current Condition Start: 06/02/23 12:01 Freq: Status: Active Protocol: Document 06/02/23 11:05 [facility] (Rec: 06/02/23 13:13 [facility] [id number]) Occupational Therapy Current Condition Current Condition Evaluation Date 06/02/23 Treatment Diagnosis GI bleed, Ileus s/p left inguinal hernia repair Diagnosis Onset Date 05/30/23 M3 OT- IP Subjective and Pain Start: 06/02/23 12:01 Freq: Status: Active Protocol: Document 06/02/23 11:05 [facility] (Rec: 06/02/23 13:13 [facility] [id number]) OT- Subjective Occupational Therapy Visit Type Type Initial Evaluation Visit Start Time 11:05 Visit Stop Time 11:54 Total Visit Minutes 49 Occupational Therapy Visit Comments Patient Comments Pt agreed to get up. Patient/Caregiver Goals To get better. OT Pain Assessment Pain When Pain Assessed During Mobility Pain Present Pain Present Pain Reported M4 OT- IP ADL's Start: 06/02/23 12:01 Freq: Status: Active Protocol: Document 06/02/23 11:05 [facility] (Rec: 06/02/23 13:13 [facility] [id number]) OT [id number] Comments OT Self-Feeding Comments Not at meal time. Pt able to scoop ice from a cup to eat on her own. Pt not wanting to to have larger handled utensils when asked - pt has Charot- Beckie tooth. OT ADL-Grooming Comments OT Grooming Comments Not performed. OT ADL-Oral Care Comments Oral Care Comments Not performed. OT ADL-Dressing General Eval Lower Body Dressing Ability Total Assistance Comments OT Dressing Comments Assist for socks and unable to emy AFO's on her feet are swollen. OT ADL-Toileting Comments OT Toileting Comments Not performed. OT ADL-Bathing Comments OT Bathing Comments Sponge bath more appropriate at this time. M5 OT- IP IADL's Start: 06/02/23 12:01 Freq: Status: Active Protocol: Document 06/02/23 11:05 [facility] (Rec: 06/02/23 13:13 [facility] [id number]) OT-Instrumental Activities of Daily Living Deficits IADL Deficits Identified Deficits Home Safety Awareness Awareness of Need for Assistance at Home Good Awareness Medication Management Medication Management Comments Prior pt states did not take any medications. Money Management Money Management Comments Pt states does money orders for her bills. Meal Preparation Meal Preparation Comments Pt will need assist. Traffic Engineer Traffic Engineer Comments Pt will need assist. M6 OT- IP Functional Cognition Start: 06/02/23 12:01 Freq: Status: Active Protocol: Document 06/02/23 11:05 [facility] (Rec: 06/02/23 13:13 [facility] [id number]) Cognitive Factors Limiting Selfcare Function Cognitive Ability Level of Alertness Alert Patient Orientation Name,Age,Birthday,Month,Date, Year,Day of Week,Place, Situation Attention Span Ability Capable of Focused Attention, Capable of Sustained Attention Ability to Follow Commands Able to Follow One Step Commands Cognitive Comments Cognitive Assessment Comments Pt able to follow command for mobility needs. M7 OT- IP Mobility and Balance Start: 06/02/23 12:01 Freq: Status: Active Protocol: Document 06/02/23 11:05 [facility] (Rec: 06/02/23 13:13 [facility] [id number]) OT- Bed Mobility Assessment Supine to Sit Supine to Sit Assist Maximum Assistance,2 Person Assistance,Head of Bed Elevated,Bedrails Scooting Scooting to Edge of Bed Maximum Assistance,2 Person Assistance OT-Transfer Assessment Technique Transfer Destination Bed,Chair Transfer Technique Mechanical Lift Devices Transfer Assistive Devices Mechanical Lift Comments Mobility Comments MAXA X2 with HOB assist for her trunk and to get the legs to the edge of the bed. Unable to get the AFO's on her feet and therefore use of hunter lift to get to the recliner at this time. OT- Balance Assessment Sitting Balance and Reactions Static Sitting Balance Ability Fair Dynamic Sitting Balance Ability Poor M8 OT- IP Objective Assessments Start: 06/02/23 12:01 Freq: Status: Active Protocol: Document 06/02/23 11:05 [facility] (Rec: 06/02/23 13:13 [facility] [id number]) OT Gross Range of Motion Upper Extremity Range of Motion Assessment Bilaterally Impaired OT Strength Upper Extremity Strength Assessment Bilaterally Impaired Comments Strength Comments LUE from 3-/5 to 4-/5 RUE from 3-/5 to 3+/5 Pt has atrophy in her hands as she has Charot Beckie Tooth. M9 OT- IP Assessment and Plan Start: 06/02/23 12:01 Freq: Status: Active Protocol: Document 06/02/23 11:05 [facility] (Rec: 06/02/23 13:13 [facility] [id number]) OT Summary Assessment and Plan Potential Rehabilitation Potential Good Analytic Complexity at Evaluation High Summary OT Impairments Pain,Range of Motion,Strength, Balance,Functional Mobility, Self-Feeding,Grooming,Dressing ,Toileting,Bathing,Toilet Transfers,Shower Transfers, Activity Tolerance Progress Towards Goals Slow Progress due to Pain,Slow Progress due to Medical Issues,Slow Progress due to Activity Tolerance Assessment Summary Pt high complexity and main barriers are pain, decreased strength, endurance, and balance. Pt at this time able to sit to the edge of the bed with CGA to MAXA when tiring and needing support. Pt will benefit from skilled rehab prior to going home. Goals Self-Feeding Goal Independent Grooming Goal Independent Dressing Goal Independent Toileting Goal Independent Bathing Goal Independent Toilet Transfer Goal Independent Shower Transfer Goal Independent Days to Meet Goals 40 Frequency of Treatment Frequency Of Treatment Once a Day Treatment Plan OT Treatment Plan ADL Training,Functional Mobility,Patient/Family Education,Discharge Planning Other Treatment Recommendations and Next Pt to be able to sit at the Treatment Focus edge of the bed for grooming and oral care needs with SBA for balance. Discharge Recommendations OT Discharge Recommendations SNF Rehab Transportation Needs at Discharge Wheelchair/Cabulance
[2023-06-02] MEDS: HYDROMORPHONE 1 MG INJ IV ×2 (12:05→16:45)
--- NOTE | 2023-06-02 13:54 | CM.DPC ---
DCP SNF Planning: Per MD, pt still has significant stool in her bowels and initiated additional bowel regimen towards hopeful bm today and AFIB seems to be improving but not yet medically stable to discharge. JOHNY spoke to Madison at [facility] and updated on pt status and faxed updated MD prog note and PT/OT from today towards [facility] MCR SNF auth. Madison will send the updated notes to [facility] today. JOHNY met bedside with pt and son and reviewed the medical DPOA pwk and called [facility] who arrived bedside and notarized POA pwk and CC Jaylyn scanned copy into pt's medical chart. PASRR done. Plan: JOHNY to follow closely with [facility] for insurance SNF auth for likely pt d/c to their facility tomorrow for ongoing rehab before returning home with very supporting son/DPOA. Treasure Llanes MSW
--- NOTE | 2023-06-02 15:22 | PM.PN.1 ---
Subjective Subjective Interval history: Patient hasn't had BM yet. Patient and son requesting enema. HR stable on digoxin. Exam Vital Signs (past 8 hours): - 06/02/23 08:00 06/02/23 10:03 06/02/23 10:51 Temperature 97.9 F Pulse Rate 84 88 85 Respiratory Rate 18 Blood Pressure 87/54 L 101/53 L Pulse Oximetry 95 Oxygen Flow Rate 0 06/02/23 12:00 Temperature 97.5 F L Pulse Rate 87 Respiratory Rate 20 Blood Pressure 106/52 L Pulse Oximetry 98 Oxygen Flow Rate 0 Oxygen Delivery Method Room Air Oxygen Flow Rate 0 Narrative Exam Narrative: GEN: no acute distress HEENT: dry mucous membranes PULM: clear bilaterally CV: regular rate and rhythm, no murmurs ABD: distended, firm, mild tenderness diffusely, no rebound/guarding NEURO: awake, alert, no focal deficits Objective Labs 06/02/23 03:48 06/02/23 03:48 Labs: Laboratory Results - last 24 hr 06/02/23 03:48 WBC 14.0 H RBC 3.41 L Hgb 10.8 L Hct 32.1 L MCV 94.1 MCH 31.8 MCHC 33.8 RDW 12.8 Plt Count 278 Neut % (Auto) Not Reportable Lymph % (Auto) Not Reportable [place] % (Auto) Not Reportable Eos % (Auto) Not Reportable Baso % (Auto) Not Reportable Lymph # (Auto) Not Reportable [place] # (Auto) Not Reportable Baso # (Auto) Not Reportable Total Counted 100 Seg Neutrophils % 84.0 H Band Neutrophils % 3.0 Lymphocytes % (Manual) 6.0 L Monocytes % (Manual) 5.0 Basophils % (Manual) 2.0 H Neutrophils # (Manual) 03021 H RBC Morphology See below Polychromasia 1+ H Anisocytosis 1+ H Isaias Cells 3+ H Sodium 127 L Potassium 4.7 Chloride 105 Carbon Dioxide 13 L BUN 28 H Creatinine 0.64 Estimated GFR > 60 BUN/Creatinine Ratio 43.8 H Glucose 89 Calcium 8.0 L Magnesium 2.1 PFSH Medical History Scoliosis Glaucoma Depression Kmvlhuv-Ynpql-Tppfb disease Colon polyps Barretts esophagus Surgical History Hx of hernia repair (07/20/22) Hx of hernia repair (05/18/22) Status post endoscopy Status post colonoscopy History of knee replacement History of knee replacement Status post cholecystectomy Status post hernia repair (08/11/89) Status post hysterectomy Family History Father Heart disease Hypertension High cholesterol Stomach cancer Stroke Grandfather CVA (cerebral infarction) Mother Cancer of breast Social History marital status: household members: none lives independently: Yes education level: master's degree occupational status: other Smoking Status: Current every day smoker alcohol intake: current Assessment & Plan Assessment & Plan narrative: 1. Acute nausea and vomiting suspect secondary to ileus/constipation secondary to recent hernia repair -had hernia repair recently -CT scan shows free air, per surgery and radiology this is expected for laparoscopic repair yesterday -CT also noted distended stomach and stool in colon -surgery consulted, suspect possible ileus/constipation as worsening symptoms -ordered enema/suppository, continue aggressive laxative therapies with bisacodyl, miralax, colace, along with enemas. Ordered methylnaltrexone. Consider disimpaction if no resolution. -suspect has reflux which has worsened, ordered PPI -avoid opiates if possible -daily enemas until BM 2. Acute vomiting of blood, resolved -suspect secondary radha keith tear -trend hemoglobin closely, has been stable thus far. No plan for endoscopy -avoid anticoagulants for now -PPI BID IV ordered 3. Paroxysmal afib -new diagnosis -not in afib on admission, but intermittently goes into afib with no seeming response to medications. -keep on tele -suspect secondary to above ileus, distension and pain. Suspect this will improve with bowel movements and has not responded to medications given thus far. Gave digoxin 250 mcg q6 hr then put on daily 125mcg. HR controlled. -magnesium low, potassium slightly low, ordered replacement -continue metoprolol XL 25mg BID -ordered ECHO with some diastolic dysfunction, but no valve abnormalities and normal EF. -no anticoagulation for now given hematemesis on admit, can likely start on discharge. 4. Charcot jacobo tooth, neuropathy -chronic, at baseline 5. Hyponatremia - likely secondary to hypovolemia - continue IV fluids for now, with caution due to rapid rate. Code: Full Surrogate: Benedicto Dispo: [facility] arranging SNF.
[2023-06-02] MEDS: SODIUM CHLORIDE 0.9% 1,000 ML 1000 ML IV (15:54)
[2023-06-02] MEDS: MINERAL OIL 1 EACH ENEMA PR (15:55)
--- NOTE | 2023-06-02 16:41 | DI.CT.S_ITS ---
PROCEDURE: CT ABDOMEN PELVIS W CON INDICATIONS: stool leaking from abd incision, suspect bowel perf TECHNIQUE: After the administration of intravenous contrast, axial sections acquired from the lung bases to the pubic symphysis. Coronal and sagittal reformats were performed. For radiation dose reduction, the following was used: automated exposure control, adjustment of mA and/or kV according to patient size. COMPARISON: [facility], CT, CT ABDOMEN PELVIS W CON, 05/28/2023, 13:08. FINDINGS: Image quality: Diagnostic Lung bases: Left basilar atelectasis and moderate hiatal hernia not significantly changed. Heart: Heart size is normal. ABDOMEN: Liver: No focal hepatic lesions. Stable cystic lesion in the central, posterior right hepatic lobe (27/series 2) is again too small to characterize. Gallbladder: No radiopaque gallstone identified. No significant gallbladder wall thickening. Biliary ducts: No intrahepatic or extrahepatic biliary ductal dilatation identified. Pancreas: No pancreatic ductal dilatation. Spleen: No splenomegaly. Adrenal Glands: Unremarkable. Kidneys and Ureters: No hydronephrosis or solid renal mass lesion. No complex renal cystic lesion requiring follow-up. Stomach and Bowel: Visualized stomach appears unremarkable. Stable postsurgical changes of previous distal colonic resection and anastomotic suture line in the lower abdomen/pelvis. Moderate-large fecal burden seen throughout the colon which appears to have increased. Additional air-fluid levels within the transverse colon and proximal descending colon. No evidence suggest significant bowel wall thickening in the interim. Multiple loops of small bowel are fluid-filled without evidence for small bowel obstruction. Peritoneum: Small amount of scattered free fluid within the abdomen. No evidence to suggest organized fluid collection/abscess. No rim enhancing fluid collections identified since the prior study. Moderate amount of free air remains in the abdomen. Multiple locules of gas with adjacent fluid and edema noted in the anti dependent portions of the peritoneal cavity as well as interval increase in amount of extensive subcutaneous soft tissue gas and edema involving the ventral abdominal wall and extending into the lower lateral abdomen and hip region. No definite, organized fluid collection seen. There is associated diffuse anasarca. Locules of air and fluid possibly communicating between the subcutaneous soft tissues in the peritoneal cavity noted on axial images 53 through 57 and sagittal images 53 and 54 on series 5. Ventral Wall: Interval increase in extensive subcutaneous soft tissue gas and fluid without evidence for organized fluid collection. Diffuse subcutaneous edema/anasarca has also progressed. Abdominal Nodes: No retroperitoneal or mesenteric adenopathy by size criteria. Vessels: Aorta and inferior vena cava are normal in size. PELVIS: Pelvic Organs: Unremarkable. Bladder: Mild distention of the urinary bladder slightly displaced to the right. Pelvic Nodes: No enlarged lymph nodes. Miscellaneous: Stable left inguinal hernia repair. Bones: No acute vertebral body compression fractures. Multilevel spondylitic changes throughout the imaged spine. No suspicious osseous lesions. IMPRESSION: 1. Interval progression of significant large volume of free air and increased fluid in the subcutaneous soft tissues of the ventral abdomen and now extending into the lateral, inferior abdominal wall and left hip region without evidence for organized fluid collection/abscess. 2. Persistent large volume colonic stool which has increased slightly compared to the prior study with increased fluid levels of affected bowel ventrally. There is small-moderate amount of anterior soft tissue gas and fluid deep superficial to bowel wall and deep to the ventral abdominal wall/peritoneal lining with possible defect noted in the anterior abdomen as described above. Findings may represent site of possible bowel perforation. 3. Interval increase in diffuse anasarca which may be related to sepsis given patient's reported history of fecal material leaking through previous laparoscopic incision site. Other chronic findings as above. Findings and images reviewed with Dr. Fajardo at time of study completion. Dictated by: Pete Alicia M.D. on 06/02/2023 at 17:23 Approved by: Pete Alicia M.D. on 06/02/2023 at 17:44
--- NOTE | 2023-06-02 17:30 | P.PN_ITS ---
Subjective Subjective Date Patient Seen: 06/02/23 Time Patient Seen: 17:30 Interval history: 72 y.o woman sp laparoscopic converted to open left inguinal hernia repair 7 days ago. Clinically deteriorated over the past 24 hrs and staff noted stool coming from one of the laparoscopic port incisions. Severe abdominal pain. Exam Vital Signs (past 8 hours): - 06/02/23 10:03 06/02/23 10:51 06/02/23 12:00 Temperature 97.5 F L Pulse Rate 88 85 87 Respiratory Rate 20 Blood Pressure 101/53 L 106/52 L Pulse Oximetry 98 Oxygen Flow Rate 0 06/02/23 16:00 Temperature Pulse Rate Respiratory Rate Blood Pressure 109/72 Pulse Oximetry Oxygen Flow Rate Oxygen Delivery Method Room Air Oxygen Flow Rate 0 Narrative Exam Narrative: Gen-Adult woman alert oriented in distress Chest-Non labored resp Abdomen-Distended, peritonitis Objective Labs 06/02/23 03:48 06/02/23 03:48 Labs: Laboratory Results - last 24 hr 06/02/23 03:48 WBC 14.0 H RBC 3.41 L Hgb 10.8 L Hct 32.1 L MCV 94.1 MCH 31.8 MCHC 33.8 RDW 12.8 Plt Count 278 Neut % (Auto) Not Reportable Lymph % (Auto) Not Reportable [place] % (Auto) Not Reportable Eos % (Auto) Not Reportable Baso % (Auto) Not Reportable Lymph # (Auto) Not Reportable [place] # (Auto) Not Reportable Baso # (Auto) Not Reportable Total Counted 100 Seg Neutrophils % 84.0 H Band Neutrophils % 3.0 Lymphocytes % (Manual) 6.0 L Monocytes % (Manual) 5.0 Basophils % (Manual) 2.0 H Neutrophils # (Manual) 86558 H RBC Morphology See below Polychromasia 1+ H Anisocytosis 1+ H [place] Cells 3+ H Sodium 127 L Potassium 4.7 Chloride 105 Carbon Dioxide 13 L BUN 28 H Creatinine 0.64 Estimated GFR > 60 BUN/Creatinine Ratio 43.8 H Glucose 89 Calcium 8.0 L Magnesium 2.1 PFSH Medical History Scoliosis Glaucoma Depression Rtoqwsq-Xkfll-Ukplx disease Colon polyps Barretts esophagus Surgical History Hx of hernia repair (07/20/22) Hx of hernia repair (05/18/22) Status post endoscopy Status post colonoscopy History of knee replacement History of knee replacement Status post cholecystectomy Status post hernia repair (08/11/89) Status post hysterectomy Family History Father Heart disease Hypertension High cholesterol Stomach cancer Stroke Grandfather CVA (cerebral infarction) Mother Cancer of breast Social History marital status: household members: none lives independently: Yes education level: master's degree occupational status: other Smoking Status: Current every day smoker alcohol intake: current Assessment & Plan Assessment and plan (1) Acute abdomen: Status: Acute Assessment & Plan narrative: 72 y.o woman 7 days post left inguinal hernia repair with acute abdomen. Perhaps small bowel injury vs perforated sterceroal ulcer. Discussed with patient and son she is critically ill and needs to proceed to the operating room for emergency exploratory laparotomy, possible bowel resection and possible ostomy. Questions have been answered and she is in agreement with this plan. We discussed risks including bowel injury, infection, and . She provides her consent to proceed.
[2023-06-02] MEDS: PIPERACILLIN/TAZO 4.5 GM in SODIUM CHLORIDE 0.9% 100 ML IV (17:39)
--- NOTE | 2023-06-02 17:47 | SUR.HOLD ---
Son and friend at bedside speaking to surgeon. Patient AAO x 3 and able to consent for herself.
--- NOTE | 2023-06-02 18:18 | PC.NURSE ---
@ 0800 HANGAR ATTENDANT reported low BP: 87/54 HR 84. Looked at chart and pt was consistently trending hypoTN throughtout the night. Notifed MD and held 75mg tablet of Metoprolol. New dose order changed to 25mg. Rechecked BP: 101/53 HR 88. Administered med. Pt continued to have stable VS. Pt c/o mild abd pain. Abd looked slightly distended and firm when pressed. X2 lap sites were C/D/I. @1200 BP checked, and stable: BP 106/52 HR 87, pt RA. Pt worked with PT/OT to try to stand up out of bed, but OT reported that pt's shoe braces were not able to fit on pt's legs because pt was so swollen in BLE. PT/OT mechanically lifted pt to chair, pt nikita well, but when up to chair, pt was moaning in pain and tearful. Pt reported 10/10 pain. IV dilaudid administered and effective. Pt fell asleep for a few hours. MD ordered IV bolus and mineral oil enema. Administered bolus in RAC. EGG GRADER and this RN got pt back to bed w/ mech lift and turned pt to the side to administer enema. While getting pt to bed, pt's mentation was off, and pt was not understanding what was happening, and both RNs kept reassuring and reminding pt about enema administration. Enema administered, pt nikita well. Waited 15 mins, but not BM. EGG GRADER checked for impacted stool, but stated that stool wasn't hard and too far up the bowels to reach. Pt's abd looked more round/distended and red, hot to touch, and there was +3 pitting edema all throughout her perineum, abd and BLE. Pt c/o increased abd pain/cramping. Notified MD to look at pt. Still no BM, so repositioned pt to lie flat on back. Pt's abd was looking more increasingly distended and pt was c/o of increased pain. X2 lap sites had shadowing, and periumbilical site was leaking. Took dressing off, and there was foul, BM-smelling discharge, brownish, yellow for lap site. Cleaned both sites with gauze and saline, and covered with sterile gauze and tape. MD saw pt as lap sites were being cleaned. MD consulted with general sx and ordered CT w/ contrast and start IV abx, Zosyn. rail car painter/sandblaster notified, EGG GRADER assisting, HANGAR ATTENDANT and another RN assisted to get pt on ZOLL monitoring to CT. DI RN notified to put midline in. CT done and MD and Surgeon notifed to look at scan. Surgeon wanted to take pt to OR immediately. Midline done in GAGAN in CT room as well as IV bolus continued and Zosyn started. rail car painter/sandblaster and this RN took pt to pre op and gave OR staff hand off report.
--- NOTE | 2023-06-02 18:35 | SUR.OPER ---
Supine on padded OR bed, head on pillow, arms secured on padded arm boards at <90 degrees abduction, legs uncrossed, safety belt at thigh, tape over blanket over lower legs. Gel pad placed between patients posterior thigh and urinary catheter tubing. Gel pads folded and placed under bilateral wrists for support.
[2023-06-02] MEDS: ACETAMINOPHEN IV 1,000 MG/100 ML VIAL 400 MG IV (19:01)
--- NOTE | 2023-06-02 21:00 | DI.RAD.S_ITS ---
PROCEDURE: XR CHEST 1V INDICATIONS: central line placement- right side TECHNIQUE: One view of the chest was acquired. COMPARISON: [facility], , CHEST 2 VIEW, 03/03/2017, 20:40. FINDINGS: Surgical changes and devices: Endotracheal tube is seen with tip approximately the 5.5 cm above the jodi. Right internal jugular catheter is seen with tip projecting over the region of the superior cavoatrial junction. Lungs and pleura: There is increased opacity in the left hemithorax that is suspicious for a layering pleural effusion on this supine exam. Left basilar atelectasis or consolidation is noted. Possible right a focal opacity or superimposed structures. Mediastinum: Mediastinal contours appear normal. Heart size is normal. Bones and chest wall: No suspicious bony lesions. Overlying soft tissues appear unremarkable. IMPRESSION: 1. Endotracheal tube and right internal jugular catheter in acceptable positions. 2. Left pleural effusion. Left basilar atelectasis or consolidation. Approved by: Ty Farnsworth M.D. on 06/02/2023 at 22:27
--- NOTE | 2023-06-02 21:15 | SUR.PHASEI ---
Triple lumen CVC placed by Dr Storey; portable CXR performed to confirm placement. Catarino
--- NOTE | 2023-06-02 21:16 | PM.OP.1 ---
Operative Date/Time/Diagnoses Date of procedure: 06/02/23 Time of procedure: 21:16 Pre-op diagnosis: Acute abdomen Post-op diagnosis: other (Feculent peritonitis) Procedure & Clinicians Procedure: Exploratory laparotomy Enterectomy x3 Temporary abdominal closure Same procedure as scheduled: Yes Indications: Ms. Blackwell is a 72-year-old woman with a remote history of a trauma exploratory laparotomy who has undergone 2 attempts at open left inguinal hernia repair. 7 days ago she underwent a diagnostic laparoscopy with intention to perform a laparoscopic inguinal hernia repair but once entry into the abdomen was made there were innumerable dense intra-abdominal adhesions and the procedure was aborted converted to a open procedure. She returned to the emergency room 2 days after the operation with atrial fibrillation and abdominal discomfort. Initial imaging and laboratory studies were largely unremarkable. Today she developed worsening abdominal pain and was noted to have feculent drainage through 1 of the laparoscopic port incisions. I explained to the patient and her son my concern that she had a intestinal leak and it was my recommendation that we proceed to the operating room for an exploratory laparotomy. We discussed risks of the operation including intestinal injury, infection chronic wound, damage to surrounding structures, heart attack stroke and . I explained that I did not think that there was a reasonable alternative as without intervention she would like pass from her illness. Surgeon: Allen Fajardo Manager Assembly: Catherine Blankenship Anesthesia Type: General Operative Notes Findings: Dense intra abdominal adhesions. Feculent peritonitis Extensive adhesiolysis >90 min Specimen(s): other (Small-bowel resection) Estimated Blood Loss (mL): 100 Procedure in detail: Patient was brought to the operating room placed supine on the table. Bilateral lower extremity compression devices were applied. General anesthesia was induced he was intubated with endotracheal tube. She received 3.375 g of Zosyn prior to skin incision. A Thomas catheter was sterilely placed. She was prepped and draped in sterile fashion and time-out was performed. We began with a midline incision the skin was incised the fascia was grasped elevated sharply incised and the abdomen was entered. Upon entry there was diffuse feculent peritonitis. There were numerous dense intra abdominal adhesions. We proceeded with an extensive adheisolysis with sharp dissection in order to identify the source of intestinal leak. During the process of adhesiolyis three enterotomies occurred which were controlled with suture and a colotomy in the transverse colon was identified and controlled. At this point the patient was requiring vasopressors and so we proceeded with a damage control operation. Three portions of small bowel and a section of transverse colon were resected. A window within the mesentery on either side was made and the bowel was divided using the linear KYLE stapler blue load. The bowel was left in discontinuity each section was tacked together using Prolene suture. The abdomen was copiously irrigated with sterile saline. The left inguinal incision was opened the prior mesh was removed and the abdominal wall was copiously lavaged and then a roll of Kerlix was placed within the abdominal wall. A temporary abdominal closure was fashioned using a sterile plastic sheet followed by blue towel chest tube an ioban. The sponge and instrument count at the end of the operation was correct. Patient remained intubated and was transferred to the intensive care unit for resuscitation with plan for return to the operating room tomorrow. Complications: none Post-operative Condition: critical Disposition: ICU
--- NOTE | 2023-06-02 21:22 | SUR.PHASEI ---
Triple lumen CVC placed by anesthesiologist to right I
--- NOTE | 2023-06-02 21:23 | SUR.PHASEI ---
Triple lumem CVC placed to Right IJ by Anesthesiologist; CXR done at bedside to confirm placement. Patient transported to ICU 227 on portable monitor and oxygen; patient remains intubated during transfer. Patient to room 227 with anesthesia provider; BOBBIN LOOSE END FINDER and FUNERAL LIMOUSINE DRIVER
--- NOTE | 2023-06-02 21:54 | SUR.PHASEI ---
Updated bedside report given to Sandra, TEST PULLER; blanket warmer to patient on arrival to ICU 27; temp 96.9 but fingertips cold and slightly cyanotic. Respiratory therapy in room to assist with mechanical ventilation.
--- NOTE | 2023-06-02 21:56 | PM.CN ---
History of Present Illness Consult details Chief complaint: GI bleed/post hernia surgery Meds Home Medications and Allergies Home Medications Medication Instructions Recorded Confirmed Type latanoprost 0.005 % eye drops 1 drp OU HS ##0 01/27/17 05/28/23 History (Xalatan) ketoconazole 2 % topical cream See Rx Instructions .Route 11/26/20 05/28/23 Rx .COMPLEX #30 grams Disabled parking #1 ea 08/21/21 05/28/23 Rx timolol maleate 0.5 % eye drops 1 drp EYE-BOTH BID #15 mL 06/11/22 05/28/23 Rx pantoprazole 40 mg tablet,delayed See Rx Instructions .Route 11/05/22 05/28/23 Rx release .COMPLEX #90 tabs docusate sodium 100 mg capsule 100 mg PO BID #30 caps 05/27/23 05/28/23 Rx (Colace) acetaminophen 325 mg capsule 650 mg PO PRN PRN pain 05/28/23 05/28/23 History (Tylenol) ibuprofen 200 mg tablet 400 mg PO Q6H PRN Pain, Moderate 05/28/23 05/28/23 History dorzolamide 22.3 mg-timolol 6.8 1 drp EYE-BOTH BID 05/30/23 05/30/23 History mg/mL eye drops Allergies Allergy/AdvReac Type Severity Reaction Status Date / Time No Known Drug Allergies Allergy Verified 05/27/23 11:27 Exam Vital Signs (past 8 hours): - 06/02/23 16:00 06/02/23 17:10 06/02/23 17:38 Temperature 98.6 F Pulse Rate 101 H 100 H Respiratory Rate 14 11 L Blood Pressure 109/72 124/89 97/45 L Pulse Oximetry 92 94 Oxygen Delivery Method Nasal Cannula Oxygen Flow Rate 0 4 06/02/23 17:57 06/02/23 21:26 06/02/23 21:42 Temperature Pulse Rate 98 H 86 93 H Respiratory Rate 17 12 Blood Pressure 92/51 L 115/64 Pulse Oximetry 99 92 98 Oxygen Delivery Method Nasal Cannula Mechanical Ventilation Oxygen Flow Rate 3 06/02/23 21:45 06/02/23 21:47 06/02/23 21:48 Temperature 96.3 F L Pulse Rate 91 H 91 H Respiratory Rate 15 20 Blood Pressure 117/53 L Pulse Oximetry 96 94 Oxygen Delivery Method Oxygen Flow Rate 06/02/23 21:49 06/02/23 21:52 Temperature Pulse Rate 91 H 92 H Respiratory Rate 16 23 Blood Pressure 117/53 L 107/51 L Pulse Oximetry 96 94 Oxygen Delivery Method Mechanical Ventilation Mechanical Ventilation Oxygen Flow Rate Oxygen Delivery Method Mechanical Ventilation Oxygen Flow Rate 3 Objective Labs 06/03/23 04:32 06/03/23 04:32 Labs: Laboratory Results - last 24 hr 06/02/23 03:48 WBC 14.0 H RBC 3.41 L Hgb 10.8 L Hct 32.1 L MCV 94.1 MCH 31.8 MCHC 33.8 RDW 12.8 Plt Count 278 Neut % (Auto) Not Reportable Lymph % (Auto) Not Reportable [place] % (Auto) Not Reportable Eos % (Auto) Not Reportable Baso % (Auto) Not Reportable Lymph # (Auto) Not Reportable [place] # (Auto) Not Reportable Baso # (Auto) Not Reportable Total Counted 100 Seg Neutrophils % 84.0 H Band Neutrophils % 3.0 Lymphocytes % (Manual) 6.0 L Monocytes % (Manual) 5.0 Basophils % (Manual) 2.0 H Neutrophils # (Manual) 23267 H RBC Morphology See below Polychromasia 1+ H Anisocytosis 1+ H [place] Cells 3+ H Sodium 127 L Potassium 4.7 Chloride 105 Carbon Dioxide 13 L BUN 28 H Creatinine 0.64 Estimated GFR > 60 BUN/Creatinine Ratio 43.8 H Glucose 89 Calcium 8.0 L Magnesium 2.1 PFSH Medical History Scoliosis Glaucoma Depression Tirvugr-Clrbi-Pifou disease Colon polyps Barretts esophagus Surgical History Hx of hernia repair (07/20/22) Hx of hernia repair (05/18/22) Status post endoscopy Status post colonoscopy History of knee replacement History of knee replacement Status post cholecystectomy Status post hernia repair (08/11/89) Status post hysterectomy Family History Father Heart disease Hypertension High cholesterol Stomach cancer Stroke Grandfather CVA (cerebral infarction) Mother Cancer of breast Social History marital status: household members: family and none lives independently: Yes education level: master's degree occupational status: other Tobacco & Substance Use Smoking Status: Current every day smoker alcohol intake: current
[2023-06-02] MEDS: propofoL 1,000 MG/100 ML VIAL 20 MG IV (22:02)
[2023-06-02] MEDS: PIPERACILLIN/TAZO 3.375 GM in SODIUM CHLORIDE 0.9% 100 ML IV (22:04)
[2023-06-02 22:44] LABS: Lactate (Lactic Acid) 2.9 mmol/L (0.7-2.1)
[2023-06-02] MEDS: NOREPINEPHRINE BITARTRATE/D5W 4 MG/250 ML PLAST..BAG 29.963 MG IV (23:14)
[2023-06-02] MEDS: LACTATED RINGERS 1,000 ML 125 ML IV (23:15)
--- NOTE | 2023-06-02 23:17 | PM.PN.EICU ---
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 On 05/31/2023, CT abdomen/pelvis showed free air which was attributed to recent surgery. Overnight, developed atrial fibrillation with RVR and was transferred to ICU for further management. She received several liters of IV fluid boluses, was loaded with digoxin and continued metoprolol to control her heart rate. She was not deemed to be a candidate for anticoagulation due to recent history of hematemesis. On 06/02/2023 afternoon, she developed increased abdominal pain, distention and found to have stool leakage from the periumbilical incision. She was evaluated by surgery team. Repeat CT abdomen with contrast showed increased amount of free air in the abdomen, prior imaging. Patient was emergently taken to the OR today due to concern for bowel perforation, underwent exploratory laparotomy, enterotomy x 3 and temporary abdominal closure. She received 2 L of IV fluid boluses in the OR. She remained intubated, postoperatively, she was transferred to ICU on ventilator. Currently she is on FiO2 35% PEEP of 5, tidal line 450 cc and respirate of 16. On arrival to ICU, she became hypotensive, and required restarting vasopressors (norepinephrine gtt.) to maintain MAP >65. She remains on IV Zosyn pending cultures. She was started on propofol gtt. for sedation and fentanyl IV pushes for pain control. Most recent labs/imaging studies reviewed. Blood work notable for WBC 11.7, hemoglobin 10.2, sodium 126, stable 15, BUN 18, creatinine 0.50, calcium 7.8. CT abdomen/pelvis showed interval progression of significant large volume of free air and increased fluid in the subcutaneous tissue of the ventral abdomen, now extending to the lateral, inferior abdominal wall and left hip region without evidence for organized collection/abscess. Ordered findings concerning for bowel perforation. Chest x-ray with satisfactory position of ET tube and right IJ CVC catheters. Left pleural effusion and left basilar atelectasis versus consolidation noted. Current Medications Current Medications Medications: Home Medications latanoprost 0.005 % eye drops (Xalatan) 1 drp OU HS ##0 01/27/17 [History Confirmed 05/28/23] ketoconazole 2 % topical cream See Rx Instructions .Route .COMPLEX #30 grams 11/26/20 [Rx Confirmed 05/28/23] Disabled parking #1 ea 08/21/21 [Rx Confirmed 05/28/23] timolol maleate 0.5 % eye drops 1 drp EYE-BOTH BID #15 mL 06/11/22 [Rx Confirmed 05/28/23] pantoprazole 40 mg tablet,delayed release See Rx Instructions .Route .COMPLEX #90 tabs 11/05/22 [Rx Confirmed 05/28/23] docusate sodium 100 mg capsule (Colace) 100 mg PO BID #30 caps 05/27/23 [Rx Confirmed 05/28/23] acetaminophen 325 mg capsule (Tylenol) 650 mg PO PRN PRN pain 05/28/23 [History Confirmed 05/28/23] ibuprofen 200 mg tablet 400 mg PO Q6H PRN Pain, Moderate 05/28/23 [History Confirmed 05/28/23] dorzolamide 22.3 mg-timolol 6.8 mg/mL eye drops 1 drp EYE-BOTH BID 05/30/23 [History Confirmed 05/30/23] Visit Medications (administered) Generic Name Dose Route Start Last Admin Trade Name Freq PRN Reason Stop Dose Admin Dorzolamide/Timolol 1 drops 05/30/23 21:30 06/02/23 22:05 Dorzolamide/Timolol Ophth 10 Ml EYE-BOTH Not Given BID ASHLEY Hydromorphone HCl 1 mg 05/30/23 12:34 06/02/23 16:45 Hydromorphone 1 Mg Inj IV 1 mg Q3H PRN Administration Pain, Moderate (4-6) Sodium Chloride 1,000 mls @ 125 mls/hr 05/30/23 22:45 06/02/23 18:47 Normal Saline 0.9% IV 100 mls/hr CONT ASHLEY Administration Piperacillin Sod/Tazobactam 100 mls @ 25 mls/hr 06/02/23 21:30 06/02/23 22:04 Sod 3.375 gm/ Sodium Chloride IV 25 mls/hr Q8H ASHLEY Administration NOREPINEPHRINE BITARTRATE/D5W 4 mg in 250 mls @ 29.963 mls/hr 06/02/23 22:51 06/02/23 23:14 Levophed IV 0.1 mcg/kg/min TITRATE ASHLEY 29.963 mls/hr Administration Protocol 0.1 MCG/KG/MIN Lactated Ringer's 1,000 mls @ 125 mls/hr 06/02/23 23:00 06/02/23 23:15 Lactated Ringers IV 125 mls/hr CONT ASHLEY Administration Latanoprost 1 drops 05/30/23 21:30 06/02/23 22:05 Latanoprost 0.005% Ophth 2.5 Ml EYE-BOTH Not Given BEDTIME ASHLEY Pantoprazole Sodium 40 mg 05/31/23 09:00 06/02/23 22:16 Pantoprazole 40 Mg Vial IV Not Given BID ASHLEY Sodium Chloride 10 ml 05/30/23 21:00 06/02/23 22:16 Sodium Chloride 0.9% Flush IV 10 ml BID ASHLEY Administration Timolol Maleate 1 drops 05/30/23 21:30 06/02/23 22:05 Timolol 0.5% Ophth EYE-BOTH Not Given BID ASHLEY Objective Ventilator Parameters: Ventilator Settings FiO2 35 Labs 06/02/23 03:48 06/02/23 03:48 Labs: Laboratory Results - last 24 hr 06/02/23 06/02/23 03:48 22:21 WBC 14.0 H RBC 3.41 L Hgb 10.8 L Hct 32.1 L MCV 94.1 MCH 31.8 MCHC 33.8 RDW 12.8 Plt Count 278 Neut % (Auto) Not Reportable Lymph % (Auto) Not Reportable Tompkins % (Auto) Not Reportable Eos % (Auto) Not Reportable Baso % (Auto) Not Reportable Lymph # (Auto) Not Reportable [place]pkins # (Auto) Not Reportable Baso # (Auto) Not Reportable Total Counted 100 Seg Neutrophils % 84.0 H Band Neutrophils % 3.0 Lymphocytes % (Manual) 6.0 L Monocytes % (Manual) 5.0 Basophils % (Manual) 2.0 H Neutrophils # (Manual) 71191 H RBC Morphology See below Polychromasia 1+ H Anisocytosis 1+ H Maribel Cells 3+ H Sodium 127 L Potassium 4.7 Chloride 105 Carbon Dioxide 13 L BUN 28 H Creatinine 0.64 Estimated GFR > 60 BUN/Creatinine Ratio 43.8 H Glucose 89 Lactate 2.9 H Calcium 8.0 L Magnesium 2.1 Exam Vital Signs (past 8 hours): - 06/02/23 16:00 06/02/23 17:10 06/02/23 17:38 Temperature 98.6 F Pulse Rate 101 H 100 H Respiratory Rate 14 11 L Blood Pressure 109/72 124/89 97/45 L Pulse Oximetry 92 94 Oxygen Delivery Method Nasal Cannula Oxygen Flow Rate 0 4 06/02/23 17:57 06/02/23 21:26 06/02/23 21:42 Temperature Pulse Rate 98 H 86 93 H Respiratory Rate 17 12 Blood Pressure 92/51 L 115/64 Pulse Oximetry 99 92 98 Oxygen Delivery Method Nasal Cannula Mechanical Ventilation Oxygen Flow Rate 3 06/02/23 21:45 06/02/23 21:47 06/02/23 21:48 Temperature 96.3 F L Pulse Rate 91 H 91 H Respiratory Rate 15 20 Blood Pressure 117/53 L Pulse Oximetry 96 94 Oxygen Delivery Method Oxygen Flow Rate 06/02/23 21:48 06/02/23 21:49 06/02/23 21:50 Temperature Pulse Rate 91 H 91 H Respiratory Rate 15 16 Blood Pressure 117/53 L 107/51 L Pulse Oximetry 94 96 Oxygen Delivery Method Mechanical Ventilation Oxygen Flow Rate 06/02/23 21:50 06/02/23 21:52 06/02/23 21:55 Temperature Pulse Rate 91 H 92 H 92 H Respiratory Rate 23 23 22 Blood Pressure 107/51 L Pulse Oximetry 97 94 92 Oxygen Delivery Method Mechanical Ventilation Oxygen Flow Rate 06/02/23 21:56 06/02/23 21:56 06/02/23 21:58 Temperature Pulse Rate 92 H 92 H Respiratory Rate 22 20 Blood Pressure 103/46 L 103/46 L Pulse Oximetry 91 94 Oxygen Delivery Method Mechanical Ventilation Oxygen Flow Rate 06/02/23 22:00 06/02/23 22:00 06/02/23 22:02 Temperature Pulse Rate 92 H 91 H Respiratory Rate 19 21 Blood Pressure 94/46 L 94/46 L Pulse Oximetry 94 Oxygen Delivery Method Mechanical Ventilation Oxygen Flow Rate 06/02/23 22:05 06/02/23 22:05 06/02/23 22:10 Temperature Pulse Rate 92 H 91 H Respiratory Rate 20 19 Blood Pressure 89/49 L Pulse Oximetry 95 Oxygen Delivery Method Oxygen Flow Rate 06/02/23 22:10 06/02/23 22:15 06/02/23 22:15 Temperature Pulse Rate 91 H Respiratory Rate 21 Blood Pressure 92/48 L 86/46 L Pulse Oximetry 95 Oxygen Delivery Method Oxygen Flow Rate 06/02/23 22:20 06/02/23 22:20 06/02/23 22:25 Temperature Pulse Rate 91 H Respiratory Rate 21 Blood Pressure 82/47 L 81/43 L Pulse Oximetry 95 Oxygen Delivery Method Oxygen Flow Rate 06/02/23 22:25 Temperature 97.0 F L Pulse Rate 92 H Respiratory Rate 19 Blood Pressure Pulse Oximetry 95 Oxygen Delivery Method Oxygen Flow Rate Oxygen Delivery Method Mechanical Ventilation Oxygen Flow Rate 3 Narrative Exam Narrative: Intubated, sedated. Comfortable on the vent. Quality TeleICU Stress Ulcer Stress ulcer prophylaxis: yes and on full treatment dose Assessment & Plan Assessment & Plan narrative: ASSESSMENT/PLAN: # Septic shock from bowel perforation. S/p expiratory laparotomy. POD#0. - In the setting of recent laparoscopic abdominal hernia repair on 05/27/2023. - Now S/p exploratory laparotomy, enterectomy x 3 and temporary abdominal wall closure today. - Per surgery, continue to aggressively resuscitate the patient overnight and bring her to the OR tomorrow for more definite abdominal wall closure - Currently receiving third liter of IV fluid bolus. Continue maintenance IV fluids with LR at 125 cc/h. - Continue empiric IV antibiotic Zosyn pending cultures. - Started on vasopressors with goal to maintain MAP >65. - Monitor markers of tissue perfusion during lactate, urine output, mental status, base deficit. # Acute respiratory failure, intubated in the OR - Intubated in the OR during surgery. - Reviewed vent settings. FiO2 35%, 450 cc, 16 RR, PEEP 5. F/up ABG and adjust vent settings as needed. - C/w vent support per lung protective strategy, switch to volume-assist control (Keep TV <7.5 cc/kg, plat pres < 30, PaO2 60-80 mm Hg, SaO2 >92%) and c/w ABCDE bundle. - Keep intubated overnight since scheduled for OR tomorrow. - Continue sedation with propofol gtt. and fentanyl IV pushes. Goal to maintain RASS 0-2. - C/w daily sedation vacation and vent weaning. Reevaluate tomorrow a.m. with SAT and SBT if meets criteria. # Atrial fibrillation with RVR: - Likely in the setting of sepsis and liver derangements. - TTE with preserved LV function. - Continue digoxin. Goal to maintain heart rate less than 110. - Monitor and correct electrolytes. - Recommended for AC due to concern for GI bleed. # Acute on chronic blood loss anemia: - Suspected upper GI bleed secondary to Little-Marcum tear versus gastritis versus AVM versus PUD. - Eventually GI consultation when stable - Continue to trend CBC, transfuse PRBC for hemoglobin less than 7.0. Coagulopathy as needed. # Hyponatremia, likely from hypovolemia - Continue IV fluid hydration, monitor BMP # FEN: Currently NPO. # Glucose: fairly controlled. C/w Accu checks Q6 hours and SSI. BG goal 140-180 # Prophylaxis: SCDs for DVT prophylaxis, PPI for stress ulcer prophylaxis # Lines/tubes: PIV, Thomas, ET tube, OG tube, CVC # CODE STATUS: Full code # Disposition: Remains in ICU Above plan was discussed with bedside RN, and general surgery team. We will continue to follow. Please call us if any additional questions.
[2023-06-02] MEDS: propofoL 1,000 MG/100 ML VIAL 9.588 MG IV (23:25)
[2023-06-03] VITALS (121 sets, daily range): BP systolic 79–115; BP diastolic 42–71; PULSE 86–167; RESP 6–22; TEMP 36.4–36.7; O2SAT 84–100
[2023-06-03 00:05] LABS: Reflexed Lactate in 2 Hours Y
[2023-06-03] MEDS: fentaNYL 1,000 MCG in DEXTROSE 5% IN WATER 230 ML 13.983 MCG IV (00:25)
[2023-06-03 00:57] LABS: Lactate 2HR (Lactic Acid Rflx) 3.4 mmol/L (0.7-2.1)
[2023-06-03 01:03] LABS: Fractionated Inspired Oxygen 35; HCO3 VBG 12 mmol/L (24-28); Oxygen Saturation VBG 73 % (70-75); PCO2 VBG 30.3 mmHg (45-50); PO2 VBG 47 mmHg (35-45); Total CO2 VBG 13 mmol/L (24-29); pH VBG 7.19 (7.33-7.43)
[2023-06-03] MEDS: SODIUM BICARB 8.4% SYRINGE 50 MEQ IV ×2 (01:22→01:23)
[2023-06-03] MEDS: NOREPINEPHRINE BITARTRATE/D5W 4 MG/250 ML PLAST..BAG 75 MG IV (02:41)
[2023-06-03] MEDS: VASOPRESSIN 40 UNIT in SODIUM CHLORIDE 0.9% 100 ML 4.5 UNIT IV (02:46)
[2023-06-03] MEDS: propofoL 1,000 MG/100 ML VIAL 19.176 MG IV (02:50)
--- NOTE | 2023-06-03 04:02 | DI.RAD.S_ITS ---
PROCEDURE: XR CHEST 1V INDICATIONS: OG placement TECHNIQUE: One view of the chest was acquired. COMPARISON: [facility], CR, XR CHEST 1V, 06/02/2023, 21:11. FINDINGS: Surgical changes and devices: There is an endotracheal tube with the tip 4.7 cm above jodi. An orogastric tube is seen with the tip in the stomach. Lungs and pleura: Right hemidiaphragm elevation. Small pleural effusions are likely present. Bilateral perihilar interstitial prominence.. No pneumothorax. Mediastinum: Mediastinal contours appear normal. Heart size is normal. Bones and chest wall: No suspicious bony lesions. Overlying soft tissues appear unremarkable. IMPRESSION: Orogastric tube tip in the stomach. No significant discrepancy with the shift stacker radiology preliminary report. Dictated by: Amna Coyle M.D. on 06/03/2023 at 8:06 Approved by: Amna Coyle M.D. on 06/03/2023 at 8:07
[2023-06-03 04:46] LABS: Hematocrit 32.7 % (36-46); Hemoglobin 10.8 g/dL (12.0-16.0); Mean Corpuscular HGB Conc 33.1 % (30-36); Mean Corpuscular Volume 93.6 fL (80-100); Platelet Count 204 X10^3/uL (150-400); Red Blood Cell Count 3.49 X10^6/uL (4.0-5.2); Red Cell Distribution Width 13.2 % (11.6-14.8); White Blood Cell Count 22.7 X10^3/uL (4.5-11.0)
[2023-06-03 04:51] LABS: Add Manual Diff / Slide Review YES
[2023-06-03 04:55] LABS: Alanine Aminotransferase 14 IU/L (<35); Albumin 1.7 g/dL (3.5-5.0); Albumin Globulin Ratio 0.7 (1.0-2.8); Alkaline Phosphatase 60 U/L (38-126); Aspartate Aminotransferase 32 IU/L (14-36); BUN Creatinine Ratio 39.8 (6-22); Bilirubin Total 0.8 mg/dL (0.2-1.3); Blood Urea Nitrogen 35 mg/dL (7-17); Calcium 7.4 mg/dL (8.4-10.2); Carbon Dioxide 14 mmol/L (22-32); Chloride 106 mmol/L (98-107); Estimated Glomerular Filt Rate > 60 mL/min (>60); Globulin 2.4 g/dL (1.7-4.1); Glucose 119 mg/dL (80-110); HEMOLYSIS < 15 (0-50); Potassium 4.8 mmol/L (3.4-5.1); Sodium 128 mmol/L (137-145); Total Protein 4.1 g/dL (6.3-8.2)
[2023-06-03 05:13] LABS: Neutrophils Absolute Manual 20430 /uL (3000-5900); Nucleated Red Blood Cells 2 #/Diff; Total Cells Counted 100
[2023-06-03 05:14] LABS: Polychromasia 1+; Toxic Granulation Present
[2023-06-03] MEDS: PIPERACILLIN/TAZO 3.375 GM in SODIUM CHLORIDE 0.9% 100 ML IV (05:16)
[2023-06-03 05:23] LABS: Lactate (Lactic Acid) 2.7 mmol/L (0.7-2.1)
--- NOTE | 2023-06-03 05:40 | PM.EICU.INT ---
Teleintensivist Intervention Date/Time Was camera activated?: Yes Date Patient Seen: 06/03/23 Issue(s) Addressed Issue(s): Arrhythmia (Afib w RVE, on 15 mcg/min of levo and vaso, last ABG ph 7.19 & bicarb 14) Intervention(s) Plan discussed with: Nurse and Other (Ordered a dose of Amiodaron bolus and 2 amps of bicarb)
[2023-06-03] MEDS: AMIODARONE 150 MG/100 ML PIGGYBACK 400 MG IV (05:58)
[2023-06-03] MEDS: AMIODARONE 360 MG/200 ML PIGGYBACK 33.3 MG IV (06:15)
[2023-06-03 06:45] LABS: Reflexed Lactate in 2 Hours Y
[2023-06-03] MEDS: SODIUM BICARB 8.4% SYRINGE 100 MEQ IV (06:46)
[2023-06-03] MEDS: NOREPINEPHRINE BITARTRATE/D5W 4 MG/250 ML PLAST..BAG 56.2 MG IV (07:02)
[2023-06-03 07:11] LABS: Lactate 2HR (Lactic Acid Rflx) 2.8 mmol/L (0.7-2.1)
[2023-06-03] MEDS: PANTOPRAZOLE 40 MG VIAL IV (08:29)
[2023-06-03] MEDS: propofoL 1,000 MG/100 ML VIAL 10.067 MG IV (08:47)
--- NOTE | 2023-06-03 09:07 | P.PN_ITS ---
Subjective Subjective Date Patient Seen: 06/03/23 Time Patient Seen: 09:07 Interval history: Intubated for mech ventilation Levo 15 +Vaso Amino for afib Minimal urine output Exam Vital Signs (past 8 hours): - 06/03/23 01:10 06/03/23 01:10 06/03/23 01:15 Temperature Pulse Rate 99 H Respiratory Rate 21 Blood Pressure 90/51 L 88/50 L Pulse Oximetry 98 Oxygen Delivery Method 06/03/23 01:15 06/03/23 01:20 06/03/23 01:20 Temperature Pulse Rate 98 H 98 H Respiratory Rate 20 21 Blood Pressure 92/51 L Pulse Oximetry 97 96 Oxygen Delivery Method 06/03/23 01:25 06/03/23 01:25 06/03/23 01:30 Temperature Pulse Rate 97 H Respiratory Rate 21 Blood Pressure 89/52 L 95/54 L Pulse Oximetry 97 Oxygen Delivery Method 06/03/23 01:30 06/03/23 01:35 06/03/23 01:35 Temperature Pulse Rate 101 H 100 H Respiratory Rate 19 21 Blood Pressure 91/55 L Pulse Oximetry 95 93 Oxygen Delivery Method 06/03/23 01:40 06/03/23 01:40 06/03/23 01:45 Temperature Pulse Rate 98 H Respiratory Rate 18 Blood Pressure 91/50 L 92/51 L Pulse Oximetry 92 Oxygen Delivery Method 06/03/23 01:45 06/03/23 01:50 06/03/23 01:50 Temperature Pulse Rate 97 H 97 H Respiratory Rate 20 20 Blood Pressure 94/51 L Pulse Oximetry 92 92 Oxygen Delivery Method 06/03/23 01:55 06/03/23 01:55 06/03/23 02:00 Temperature Pulse Rate 96 H Respiratory Rate 20 Blood Pressure 92/53 L 96/53 L Pulse Oximetry 94 Oxygen Delivery Method 06/03/23 02:00 06/03/23 02:05 06/03/23 02:05 Temperature Pulse Rate 93 H 95 H Respiratory Rate 20 22 Blood Pressure 93/52 L Pulse Oximetry 94 96 Oxygen Delivery Method 06/03/23 02:10 06/03/23 02:10 06/03/23 02:15 Temperature Pulse Rate 93 H 94 H Respiratory Rate 18 20 Blood Pressure 94/52 L Pulse Oximetry 92 94 Oxygen Delivery Method 06/03/23 02:15 06/03/23 02:20 06/03/23 02:20 Temperature Pulse Rate 93 H Respiratory Rate 19 Blood Pressure 95/51 L 96/50 L Pulse Oximetry 95 Oxygen Delivery Method 06/03/23 02:25 06/03/23 02:25 06/03/23 02:30 Temperature Pulse Rate 93 H Respiratory Rate 20 Blood Pressure 96/50 L 102/50 L Pulse Oximetry 96 Oxygen Delivery Method 06/03/23 02:30 06/03/23 02:35 06/03/23 02:35 Temperature Pulse Rate 95 H 95 H Respiratory Rate 18 20 Blood Pressure 102/51 L Pulse Oximetry 96 99 Oxygen Delivery Method 06/03/23 02:40 06/03/23 02:40 06/03/23 02:45 Temperature Pulse Rate 96 H Respiratory Rate 20 Blood Pressure 94/55 L 97/51 L Pulse Oximetry 98 Oxygen Delivery Method 06/03/23 02:45 06/03/23 02:50 06/03/23 02:50 Temperature Pulse Rate 96 H 94 H Respiratory Rate 19 20 Blood Pressure 99/53 L Pulse Oximetry 98 98 Oxygen Delivery Method 06/03/23 02:55 06/03/23 02:55 06/03/23 03:00 Temperature Pulse Rate 95 H 91 H Respiratory Rate 19 19 Blood Pressure 102/51 L Pulse Oximetry 98 99 Oxygen Delivery Method 06/03/23 03:00 06/03/23 03:04 06/03/23 03:05 Temperature Pulse Rate 92 H Respiratory Rate 21 Blood Pressure 101/50 L 101/52 L Pulse Oximetry 99 Oxygen Delivery Method 06/03/23 03:05 06/03/23 03:10 06/03/23 03:10 Temperature Pulse Rate 91 H 92 H Respiratory Rate 19 21 Blood Pressure 95/51 L Pulse Oximetry 99 97 Oxygen Delivery Method 06/03/23 03:15 06/03/23 03:15 06/03/23 03:20 Temperature Pulse Rate 91 H Respiratory Rate 19 Blood Pressure 98/50 L 109/53 L Pulse Oximetry 97 Oxygen Delivery Method 06/03/23 03:20 06/03/23 03:25 06/03/23 03:25 Temperature Pulse Rate 91 H 91 H Respiratory Rate 19 20 Blood Pressure 100/55 L Pulse Oximetry 97 98 Oxygen Delivery Method 06/03/23 03:30 06/03/23 03:30 06/03/23 03:35 Temperature Pulse Rate 90 Respiratory Rate 19 Blood Pressure 102/52 L 107/53 L Pulse Oximetry 98 Oxygen Delivery Method 06/03/23 03:35 06/03/23 03:40 06/03/23 03:40 Temperature Pulse Rate 89 89 Respiratory Rate 20 19 Blood Pressure 102/51 L Pulse Oximetry 98 98 Oxygen Delivery Method 06/03/23 03:45 06/03/23 03:45 06/03/23 03:50 Temperature Pulse Rate 89 87 Respiratory Rate 20 16 Blood Pressure 104/54 L Pulse Oximetry 97 95 Oxygen Delivery Method 06/03/23 03:50 06/03/23 03:55 06/03/23 03:55 Temperature Pulse Rate 87 Respiratory Rate 18 Blood Pressure 107/58 L 99/56 L Pulse Oximetry 95 Oxygen Delivery Method 06/03/23 04:00 06/03/23 04:00 06/03/23 04:05 Temperature 97.6 F Pulse Rate 88 Respiratory Rate 16 Blood Pressure 113/58 L 107/53 L Pulse Oximetry 99 Oxygen Delivery Method 06/03/23 04:05 06/03/23 04:10 06/03/23 04:10 Temperature Pulse Rate 89 86 Respiratory Rate 19 19 Blood Pressure 107/56 L Pulse Oximetry 100 100 Oxygen Delivery Method 06/03/23 04:15 06/03/23 04:15 06/03/23 04:20 Temperature Pulse Rate 91 H Respiratory Rate 20 Blood Pressure 108/54 L 103/55 L Pulse Oximetry 99 Oxygen Delivery Method 06/03/23 04:20 06/03/23 04:25 06/03/23 04:25 Temperature Pulse Rate 89 89 Respiratory Rate 21 19 Blood Pressure 109/54 L Pulse Oximetry 99 99 Oxygen Delivery Method 06/03/23 04:30 06/03/23 04:30 06/03/23 04:35 Temperature Pulse Rate 87 Respiratory Rate 17 Blood Pressure 88/50 L 104/53 L Pulse Oximetry 95 Oxygen Delivery Method 06/03/23 04:35 06/03/23 04:40 06/03/23 04:40 Temperature Pulse Rate 89 89 Respiratory Rate 17 17 Blood Pressure 101/52 L Pulse Oximetry 99 99 Oxygen Delivery Method 06/03/23 04:45 06/03/23 04:45 06/03/23 04:50 Temperature Pulse Rate 91 H Respiratory Rate 18 Blood Pressure 108/52 L 110/55 L Pulse Oximetry 99 Oxygen Delivery Method 06/03/23 04:50 06/03/23 04:55 06/03/23 04:55 Temperature Pulse Rate 90 91 H Respiratory Rate 17 17 Blood Pressure 110/55 L Pulse Oximetry 100 99 Oxygen Delivery Method 06/03/23 05:00 06/03/23 05:00 06/03/23 05:05 Temperature Pulse Rate 91 H 90 Respiratory Rate 18 19 Blood Pressure 104/52 L Pulse Oximetry 98 97 Oxygen Delivery Method 06/03/23 05:05 06/03/23 05:10 06/03/23 05:10 Temperature Pulse Rate 91 H Respiratory Rate 19 Blood Pressure 102/51 L 115/54 L Pulse Oximetry 97 Oxygen Delivery Method 06/03/23 05:15 06/03/23 05:15 06/03/23 05:20 Temperature Pulse Rate 91 H Respiratory Rate 18 Blood Pressure 112/53 L 104/55 L Pulse Oximetry 99 Oxygen Delivery Method 06/03/23 05:20 06/03/23 05:25 06/03/23 05:25 Temperature Pulse Rate 91 H 91 H Respiratory Rate 19 19 Blood Pressure 98/54 L Pulse Oximetry 99 100 Oxygen Delivery Method 06/03/23 05:30 06/03/23 05:30 06/03/23 05:35 Temperature Pulse Rate 91 H 156 H Respiratory Rate 18 20 Blood Pressure 104/55 L Pulse Oximetry 100 91 Oxygen Delivery Method 06/03/23 05:39 06/03/23 05:39 06/03/23 05:40 Temperature Pulse Rate 154 H Respiratory Rate 19 Blood Pressure 109/64 104/67 Pulse Oximetry 93 Oxygen Delivery Method 06/03/23 05:40 06/03/23 05:45 06/03/23 05:45 Temperature Pulse Rate 154 H 143 H Respiratory Rate 19 18 Blood Pressure 98/55 L Pulse Oximetry 91 98 Oxygen Delivery Method 06/03/23 05:50 06/03/23 05:50 06/03/23 05:55 Temperature Pulse Rate 167 H 154 H Respiratory Rate 18 18 Blood Pressure 97/51 L Pulse Oximetry 84 L 89 L Oxygen Delivery Method 06/03/23 05:55 06/03/23 06:00 06/03/23 06:00 Temperature Pulse Rate 166 H Respiratory Rate 18 Blood Pressure 93/59 L 95/60 Pulse Oximetry 100 Oxygen Delivery Method 06/03/23 06:05 06/03/23 06:05 06/03/23 06:10 Temperature Pulse Rate 161 H Respiratory Rate 20 Blood Pressure 100/70 92/53 L Pulse Oximetry 97 Oxygen Delivery Method 06/03/23 06:10 06/03/23 06:15 06/03/23 06:15 Temperature Pulse Rate 134 H 125 H Respiratory Rate 21 20 Blood Pressure 102/60 Pulse Oximetry 94 93 Oxygen Delivery Method 06/03/23 06:20 06/03/23 06:20 06/03/23 06:25 Temperature Pulse Rate 124 H Respiratory Rate 18 Blood Pressure 102/49 L 91/47 L Pulse Oximetry 94 Oxygen Delivery Method 06/03/23 06:25 06/03/23 06:30 06/03/23 06:30 Temperature Pulse Rate 138 H 137 H Respiratory Rate 20 20 Blood Pressure 101/47 L Pulse Oximetry 95 95 Oxygen Delivery Method 06/03/23 06:35 06/03/23 06:35 06/03/23 06:40 Temperature Pulse Rate 136 H 132 H Respiratory Rate 19 21 Blood Pressure 98/53 L Pulse Oximetry 95 95 Oxygen Delivery Method 06/03/23 06:41 06/03/23 06:41 06/03/23 06:45 Temperature Pulse Rate 141 H Respiratory Rate 19 Blood Pressure 96/61 100/55 L Pulse Oximetry 95 Oxygen Delivery Method 06/03/23 06:45 06/03/23 06:50 06/03/23 06:50 Temperature Pulse Rate 138 H 146 H Respiratory Rate 20 14 Blood Pressure 111/70 Pulse Oximetry 97 94 Oxygen Delivery Method 06/03/23 06:55 06/03/23 06:55 06/03/23 07:00 Temperature Pulse Rate 136 H 141 H Respiratory Rate 19 18 Blood Pressure 88/58 L Pulse Oximetry 97 96 Oxygen Delivery Method 06/03/23 07:00 06/03/23 07:00 06/03/23 07:05 Temperature Pulse Rate Respiratory Rate Blood Pressure 94/46 L 101/55 L Pulse Oximetry Oxygen Delivery Method Mechanical Ventilation 06/03/23 07:05 06/03/23 07:10 06/03/23 07:10 Temperature Pulse Rate 139 H 129 H Respiratory Rate 18 18 Blood Pressure 95/54 L Pulse Oximetry 96 97 Oxygen Delivery Method 06/03/23 07:15 06/03/23 07:16 06/03/23 07:16 Temperature Pulse Rate 132 H 139 H Respiratory Rate 18 20 Blood Pressure 107/48 L Pulse Oximetry 97 97 Oxygen Delivery Method 06/03/23 07:20 06/03/23 07:20 06/03/23 07:25 Temperature Pulse Rate 139 H 151 H Respiratory Rate 19 19 Blood Pressure 101/42 L Pulse Oximetry 97 97 Oxygen Delivery Method 06/03/23 07:25 06/03/23 07:30 06/03/23 07:30 Temperature Pulse Rate 145 H Respiratory Rate 18 Blood Pressure 97/51 L 93/47 L Pulse Oximetry 97 Oxygen Delivery Method 06/03/23 07:35 06/03/23 07:35 06/03/23 07:40 Temperature Pulse Rate 132 H 145 H Respiratory Rate 19 17 Blood Pressure 90/52 L Pulse Oximetry 97 97 Oxygen Delivery Method 06/03/23 07:41 06/03/23 07:41 06/03/23 07:45 Temperature Pulse Rate 144 H Respiratory Rate 18 Blood Pressure 100/63 99/71 Pulse Oximetry 96 Oxygen Delivery Method 06/03/23 07:45 06/03/23 07:50 06/03/23 07:50 Temperature Pulse Rate 140 H 147 H Respiratory Rate 19 18 Blood Pressure 98/69 Pulse Oximetry 97 97 Oxygen Delivery Method 06/03/23 07:55 06/03/23 07:55 06/03/23 08:00 Temperature Pulse Rate 125 H Respiratory Rate 19 Blood Pressure 96/55 L 99/55 L Pulse Oximetry 97 Oxygen Delivery Method 06/03/23 08:00 06/03/23 08:05 06/03/23 08:05 Temperature Pulse Rate 131 H 127 H Respiratory Rate 19 18 Blood Pressure 98/64 Pulse Oximetry 96 95 Oxygen Delivery Method 06/03/23 08:10 06/03/23 08:10 06/03/23 08:15 Temperature 98 F Pulse Rate 127 H 132 H Respiratory Rate 18 19 Blood Pressure 95/66 Pulse Oximetry 95 95 Oxygen Delivery Method 06/03/23 08:15 06/03/23 08:20 06/03/23 08:20 Temperature Pulse Rate 142 H Respiratory Rate 19 Blood Pressure 98/63 101/59 L Pulse Oximetry 95 Oxygen Delivery Method 06/03/23 08:25 06/03/23 08:25 06/03/23 08:30 Temperature Pulse Rate 149 H 149 H Respiratory Rate 19 18 Blood Pressure 79/51 L Pulse Oximetry 96 95 Oxygen Delivery Method 06/03/23 08:30 06/03/23 08:35 06/03/23 08:35 Temperature Pulse Rate 147 H Respiratory Rate 18 Blood Pressure 91/63 98/65 Pulse Oximetry 95 Oxygen Delivery Method 06/03/23 08:40 06/03/23 08:40 06/03/23 08:45 Temperature Pulse Rate 136 H 148 H Respiratory Rate 18 19 Blood Pressure 97/66 Pulse Oximetry 95 95 Oxygen Delivery Method 06/03/23 08:45 06/03/23 08:50 06/03/23 08:50 Temperature Pulse Rate 142 H Respiratory Rate 22 Blood Pressure 105/54 L 98/51 L Pulse Oximetry 96 Oxygen Delivery Method Oxygen Delivery Method Mechanical Ventilation Oxygen Flow Rate 3 Narrative Exam Narrative: Gen-Adult woman sedated and mech ventilated Abdomen-Temp abdominal dressing intact, minimal sero sanginous output Ext-Cool, delayed cap refil edematous Objective Labs 06/03/23 04:32 06/03/23 04:32 Labs: Laboratory Results - last 24 hr 06/02/23 06/03/23 06/03/23 22:21 00:19 00:33 WBC RBC Hgb Hct MCV MCH MCHC RDW Plt Count Neut % (Auto) Lymph % (Auto) [place] % (Auto) Eos % (Auto) Baso % (Auto) Lymph # (Auto) [place] # (Auto) Baso # (Auto) Total Counted Seg Neutrophils % Band Neutrophils % Lymphocytes % (Manual) Monocytes % (Manual) Metamyelocytes % Neutrophils # (Manual) Nucleated RBCs Toxic Granulation RBC Morphology Polychromasia VBG pH 7.19 L* VBG pCO2 30.3 L VBG pO2 47 H VBG HCO3 12 L VBG Total CO2 13 L VBG O2 Saturation 73 VBG Base Excess -17.0 L FiO2 35 Sodium Potassium Chloride Carbon Dioxide BUN Creatinine Estimated GFR BUN/Creatinine Ratio Glucose Lactate 2.9 H 3.4 H Calcium Total Bilirubin AST ALT Alkaline Phosphatase Total Protein Albumin Globulin Albumin/Globulin Ratio 06/03/23 06/03/23 06/03/23 04:32 05:01 06:54 WBC 22.7 H D RBC 3.49 L Hgb 10.8 L Hct 32.7 L MCV 93.6 MCH 31.0 MCHC 33.1 RDW 13.2 Plt Count 204 Neut % (Auto) Not Reportable Lymph % (Auto) Not Reportable [place] % (Auto) Not Reportable Eos % (Auto) Not Reportable Baso % (Auto) Not Reportable Lymph # (Auto) Not Reportable [place] # (Auto) Not Reportable Baso # (Auto) Not Reportable Total Counted 100 Seg Neutrophils % 78.0 H Band Neutrophils % 12.0 H Lymphocytes % (Manual) 5.0 L Monocytes % (Manual) 3.0 Metamyelocytes % 2.0 H Neutrophils # (Manual) 50835 H Nucleated RBCs 2 H Toxic Granulation Present H RBC Morphology See below Polychromasia 1+ H VBG pH VBG pCO2 VBG pO2 VBG HCO3 VBG Total CO2 VBG O2 Saturation VBG Base Excess FiO2 Sodium 128 L Potassium 4.8 Chloride 106 Carbon Dioxide 14 L BUN 35 H Creatinine 0.88 Estimated GFR > 60 BUN/Creatinine Ratio 39.8 H Glucose 119 H Lactate 2.7 H 2.8 H Calcium 7.4 L Total Bilirubin 0.8 AST 32 ALT 14 Alkaline Phosphatase 60 Total Protein 4.1 L Albumin 1.7 L Globulin 2.4 Albumin/Globulin Ratio 0.7 L PFSH Medical History Scoliosis Glaucoma Depression Ncqiype-Kjoyc-Lajto disease Colon polyps Barretts esophagus Surgical History Hx of hernia repair (07/20/22) Hx of hernia repair (05/18/22) Status post endoscopy Status post colonoscopy History of knee replacement History of knee replacement Status post cholecystectomy Status post hernia repair (08/11/89) Status post hysterectomy Family History Father Heart disease Hypertension High cholesterol Stomach cancer Stroke Grandfather CVA (cerebral infarction) Mother Cancer of breast Social History marital status: household members: family and none lives independently: Yes education level: master's degree occupational status: other Smoking Status: Current every day smoker alcohol intake: current Assessment & Plan Post-op Postoperative Procedures: Procedures Operation Date: 06/02/23 18:00 Actual Procedure Side Surgeon p Exploratory Laparotomy GEN Allen Fajardo MD Postoperative status narrative: POD 1 Sp exlap for intestinal leak in septic shock requiring vasosupport and mech ventilation, intestinal discontinuity #Status post small bowel resection and colectomy Needs to return to the operating room for abdominal washout and several anastomoses once her hemodynamics improve. We will be unable to to create a viable anastomosis with her current pressor requirements. Critical illness status discussed with son and further discussion will be necessary in regards to her code status and goals of care
--- NOTE | 2023-06-03 09:21 | P.TELICUPN_ITS ---
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 On 05/31/2023, CT abdomen/pelvis showed free air which was attributed to recent surgery. Overnight, developed atrial fibrillation with RVR and was transferred to ICU for further management. She received several liters of IV fluid boluses, was loaded with digoxin and continued metoprolol to control her heart rate. She was not deemed to be a candidate for anticoagulation due to recent history of hematemesis. On 06/02/2023 afternoon, she developed increased abdominal pain, distention and found to have stool leakage from the periumbilical incision. She was evaluated by surgery team. Repeat CT abdomen with contrast showed increased amount of free air in the abdomen, prior imaging. Patient was emergently taken to the OR 06/02 due to concern for bowel perforation, underwent exploratory laparotomy, enterotomy x 3 and temporary abdominal closure. She received 2 L of IV fluid boluses in the OR. She remained intubated, postoperatively, she was transferred to ICU on ventilator. . On arrival to ICU, she became hypotensive, and is now on 2 pressors to maintain MAP >65. stress dose steroids initiated. She remains on IV Zosyn pending cultures, IV fluconazole added for empiric antifungal coverage today. She remains on propofol gtt. for sedation and fentanyl for pain control. She remains in AF with RVR, on amiodarone gtt This am she was given magnesium IV albumin bolus for oliguria Fluids changed to D5w with 3 amps bicarb given ongoing acidosis. Ventilator rate increased to 22 - Most recent labs/imaging studies reviewed. Current Medications Current Medications Medications: Home Medications latanoprost 0.005 % eye drops (Xalatan) 1 drp OU HS ##0 01/27/17 [History Confirmed 05/28/23] ketoconazole 2 % topical cream See Rx Instructions .Route .COMPLEX #30 grams 11/26/20 [Rx Confirmed 05/28/23] Disabled parking #1 ea 08/21/21 [Rx Confirmed 05/28/23] timolol maleate 0.5 % eye drops 1 drp EYE-BOTH BID #15 mL 06/11/22 [Rx Confirmed 05/28/23] pantoprazole 40 mg tablet,delayed release See Rx Instructions .Route .COMPLEX #90 tabs 11/05/22 [Rx Confirmed 05/28/23] docusate sodium 100 mg capsule (Colace) 100 mg PO BID #30 caps 05/27/23 [Rx Confirmed 05/28/23] acetaminophen 325 mg capsule (Tylenol) 650 mg PO PRN PRN pain 05/28/23 [History Confirmed 05/28/23] ibuprofen 200 mg tablet 400 mg PO Q6H PRN Pain, Moderate 05/28/23 [History Confirmed 05/28/23] dorzolamide 22.3 mg-timolol 6.8 mg/mL eye drops 1 drp EYE-BOTH BID 05/30/23 [History Confirmed 05/30/23] Visit Medications (administered) Generic Name Dose Route Start Last Admin Trade Name Freq PRN Reason Stop Dose Admin Dorzolamide/Timolol 1 drops 05/30/23 21:30 06/02/23 22:05 Dorzolamide/Timolol Ophth 10 Ml EYE-BOTH Not Given BID ASHLEY Hydromorphone HCl 1 mg 05/30/23 12:34 06/02/23 16:45 Hydromorphone 1 Mg Inj IV 1 mg Q3H PRN Administration Pain, Moderate (4-6) Sodium Chloride 1,000 mls @ 125 mls/hr 05/30/23 22:45 06/02/23 18:47 Normal Saline 0.9% IV 100 mls/hr CONT ASHLEY Administration Piperacillin Sod/Tazobactam 100 mls @ 25 mls/hr 06/02/23 21:30 06/03/23 05:16 Sod 3.375 gm/ Sodium Chloride IV 25 mls/hr Q8H ASHLEY Administration NOREPINEPHRINE BITARTRATE/D5W 4 mg in 250 mls @ 29.963 mls/hr 06/02/23 22:51 06/03/23 08:27 Levophed IV 0.21 mcg/kg/min TITRATE ASHLEY 63.7 mls/hr Titration Protocol 0.1 MCG/KG/MIN Propofol 1,000 mg in 100 mls @ 2.397 mls/hr 06/02/23 23:15 06/03/23 08:47 Propofol IV 21 mcg/kg/min TITRATE ASHLEY 10.067 mls/hr Administration Protocol 5 MCG/KG/MIN Fentanyl 1,000 mcg/ Dextrose 250 mls @ 13.983 mls/hr 06/03/23 00:15 06/03/23 06:50 IV 1 mcg/kg/hr TITRATE ASHLEY 19.975 mls/hr Titration Protocol 0.7 MCG/KG/HR Vasopressin 40 unit/ Sodium 102 mls @ 4.5 mls/hr 06/03/23 01:54 06/03/23 02:46 Chloride IV 4.5 mls/hr CONT ASHLEY Administration Amiodarone HCl/Dextrose 360 mg in 200 mls @ 33.333 mls/hr 06/03/23 05:46 06/03/23 06:15 Nexterone IV 06/03/23 11:45 59.94 mg/hr NOW ONE 33.3 mls/hr Administration Protocol Latanoprost 1 drops 05/30/23 21:30 06/02/23 22:05 Latanoprost 0.005% Ophth 2.5 Ml EYE-BOTH Not Given BEDTIME ASHLEY Pantoprazole Sodium 40 mg 05/31/23 09:00 06/03/23 08:29 Pantoprazole 40 Mg Vial IV 40 mg BID ASHLEY Administration Sodium Chloride 10 ml 05/30/23 21:00 06/02/23 22:16 Sodium Chloride 0.9% Flush IV 10 ml BID ASHLEY Administration Timolol Maleate 1 drops 05/30/23 21:30 06/02/23 22:05 Timolol 0.5% Ophth EYE-BOTH Not Given BID ASHLEY Objective Ventilator Parameters: Ventilator Settings FiO2 35 RT Vent Frequency 22 Ventilator Tidal Volume 450 Exhaled Vt/kg IBW 7 Positive End Expiratory 5 Pressure Inspiratory Phase Time 1.2 I:E Ratio 1:2.1 Patient Position HOB >= 30 degrees Imaging Chest x-ray: My impression: ETT in good poisition, OGT in good position. no acute cardiopulmonary findings Radiologist's impression: ETT 4.7 cm above jodi, OGT in stomach Labs 06/03/23 04:32 06/03/23 04:32 Labs: Laboratory Results - last 24 hr 06/02/23 06/03/23 06/03/23 22:21 00:19 00:33 WBC RBC Hgb Hct MCV MCH MCHC RDW Plt Count Neut % (Auto) Lymph % (Auto) [place] % (Auto) Eos % (Auto) Baso % (Auto) Lymph # (Auto) [place] # (Auto) Baso # (Auto) Total Counted Seg Neutrophils % Band Neutrophils % Lymphocytes % (Manual) Monocytes % (Manual) Metamyelocytes % Neutrophils # (Manual) Nucleated RBCs Toxic Granulation RBC Morphology Polychromasia VBG pH 7.19 L* VBG pCO2 30.3 L VBG pO2 47 H VBG HCO3 12 L VBG Total CO2 13 L VBG O2 Saturation 73 VBG Base Excess -17.0 L FiO2 35 Sodium Potassium Chloride Carbon Dioxide BUN Creatinine Estimated GFR BUN/Creatinine Ratio Glucose Lactate 2.9 H 3.4 H Calcium Total Bilirubin AST ALT Alkaline Phosphatase Total Protein Albumin Globulin Albumin/Globulin Ratio 06/03/23 06/03/23 06/03/23 04:32 05:01 06:54 WBC 22.7 H D RBC 3.49 L Hgb 10.8 L Hct 32.7 L MCV 93.6 MCH 31.0 MCHC 33.1 RDW 13.2 Plt Count 204 Neut % (Auto) Not Reportable Lymph % (Auto) Not Reportable Rose[place] % (Auto) Not Reportable Eos % (Auto) Not Reportable Baso % (Auto) Not Reportable Lymph # (Auto) Not Reportable [place] # (Auto) Not Reportable Baso # (Auto) Not Reportable Total Counted 100 Seg Neutrophils % 78.0 H Band Neutrophils % 12.0 H Lymphocytes % (Manual) 5.0 L Monocytes % (Manual) 3.0 Metamyelocytes % 2.0 H Neutrophils # (Manual) 35412 H Nucleated RBCs 2 H Toxic Granulation Present H RBC Morphology See below Polychromasia 1+ H VBG pH VBG pCO2 VBG pO2 VBG HCO3 VBG Total CO2 VBG O2 Saturation VBG Base Excess FiO2 Sodium 128 L Potassium 4.8 Chloride 106 Carbon Dioxide 14 L BUN 35 H Creatinine 0.88 Estimated GFR > 60 BUN/Creatinine Ratio 39.8 H Glucose 119 H Lactate 2.7 H 2.8 H Calcium 7.4 L Total Bilirubin 0.8 AST 32 ALT 14 Alkaline Phosphatase 60 Total Protein 4.1 L Albumin 1.7 L Globulin 2.4 Albumin/Globulin Ratio 0.7 L Exam Vital Signs (past 8 hours): - 06/03/23 01:25 06/03/23 01:25 06/03/23 01:30 Temperature Pulse Rate 97 H Respiratory Rate 21 Blood Pressure 89/52 L 95/54 L Pulse Oximetry 97 Oxygen Delivery Method 06/03/23 01:30 06/03/23 01:35 06/03/23 01:35 Temperature Pulse Rate 101 H 100 H Respiratory Rate 19 21 Blood Pressure 91/55 L Pulse Oximetry 95 93 Oxygen Delivery Method 06/03/23 01:40 06/03/23 01:40 06/03/23 01:45 Temperature Pulse Rate 98 H Respiratory Rate 18 Blood Pressure 91/50 L 92/51 L Pulse Oximetry 92 Oxygen Delivery Method 06/03/23 01:45 06/03/23 01:50 06/03/23 01:50 Temperature Pulse Rate 97 H 97 H Respiratory Rate 20 20 Blood Pressure 94/51 L Pulse Oximetry 92 92 Oxygen Delivery Method 06/03/23 01:55 06/03/23 01:55 06/03/23 02:00 Temperature Pulse Rate 96 H Respiratory Rate 20 Blood Pressure 92/53 L 96/53 L Pulse Oximetry 94 Oxygen Delivery Method 06/03/23 02:00 06/03/23 02:05 06/03/23 02:05 Temperature Pulse Rate 93 H 95 H Respiratory Rate 20 22 Blood Pressure 93/52 L Pulse Oximetry 94 96 Oxygen Delivery Method 06/03/23 02:10 06/03/23 02:10 06/03/23 02:15 Temperature Pulse Rate 93 H 94 H Respiratory Rate 18 20 Blood Pressure 94/52 L Pulse Oximetry 92 94 Oxygen Delivery Method 06/03/23 02:15 06/03/23 02:20 06/03/23 02:20 Temperature Pulse Rate 93 H Respiratory Rate 19 Blood Pressure 95/51 L 96/50 L Pulse Oximetry 95 Oxygen Delivery Method 06/03/23 02:25 06/03/23 02:25 06/03/23 02:30 Temperature Pulse Rate 93 H Respiratory Rate 20 Blood Pressure 96/50 L 102/50 L Pulse Oximetry 96 Oxygen Delivery Method 06/03/23 02:30 06/03/23 02:35 06/03/23 02:35 Temperature Pulse Rate 95 H 95 H Respiratory Rate 18 20 Blood Pressure 102/51 L Pulse Oximetry 96 99 Oxygen Delivery Method 06/03/23 02:40 06/03/23 02:40 06/03/23 02:45 Temperature Pulse Rate 96 H Respiratory Rate 20 Blood Pressure 94/55 L 97/51 L Pulse Oximetry 98 Oxygen Delivery Method 06/03/23 02:45 06/03/23 02:50 06/03/23 02:50 Temperature Pulse Rate 96 H 94 H Respiratory Rate 19 20 Blood Pressure 99/53 L Pulse Oximetry 98 98 Oxygen Delivery Method 06/03/23 02:55 06/03/23 02:55 06/03/23 03:00 Temperature Pulse Rate 95 H 91 H Respiratory Rate 19 19 Blood Pressure 102/51 L Pulse Oximetry 98 99 Oxygen Delivery Method 06/03/23 03:00 06/03/23 03:04 06/03/23 03:05 Temperature Pulse Rate 92 H Respiratory Rate 21 Blood Pressure 101/50 L 101/52 L Pulse Oximetry 99 Oxygen Delivery Method 06/03/23 03:05 06/03/23 03:10 06/03/23 03:10 Temperature Pulse Rate 91 H 92 H Respiratory Rate 19 21 Blood Pressure 95/51 L Pulse Oximetry 99 97 Oxygen Delivery Method 06/03/23 03:15 06/03/23 03:15 06/03/23 03:20 Temperature Pulse Rate 91 H Respiratory Rate 19 Blood Pressure 98/50 L 109/53 L Pulse Oximetry 97 Oxygen Delivery Method 06/03/23 03:20 06/03/23 03:25 06/03/23 03:25 Temperature Pulse Rate 91 H 91 H Respiratory Rate 19 20 Blood Pressure 100/55 L Pulse Oximetry 97 98 Oxygen Delivery Method 06/03/23 03:30 06/03/23 03:30 06/03/23 03:35 Temperature Pulse Rate 90 Respiratory Rate 19 Blood Pressure 102/52 L 107/53 L Pulse Oximetry 98 Oxygen Delivery Method 06/03/23 03:35 06/03/23 03:40 06/03/23 03:40 Temperature Pulse Rate 89 89 Respiratory Rate 20 19 Blood Pressure 102/51 L Pulse Oximetry 98 98 Oxygen Delivery Method 06/03/23 03:45 06/03/23 03:45 06/03/23 03:50 Temperature Pulse Rate 89 87 Respiratory Rate 20 16 Blood Pressure 104/54 L Pulse Oximetry 97 95 Oxygen Delivery Method 06/03/23 03:50 06/03/23 03:55 06/03/23 03:55 Temperature Pulse Rate 87 Respiratory Rate 18 Blood Pressure 107/58 L 99/56 L Pulse Oximetry 95 Oxygen Delivery Method 06/03/23 04:00 06/03/23 04:00 06/03/23 04:05 Temperature 97.6 F Pulse Rate 88 Respiratory Rate 16 Blood Pressure 113/58 L 107/53 L Pulse Oximetry 99 Oxygen Delivery Method 06/03/23 04:05 06/03/23 04:10 06/03/23 04:10 Temperature Pulse Rate 89 86 Respiratory Rate 19 19 Blood Pressure 107/56 L Pulse Oximetry 100 100 Oxygen Delivery Method 06/03/23 04:15 06/03/23 04:15 06/03/23 04:20 Temperature Pulse Rate 91 H Respiratory Rate 20 Blood Pressure 108/54 L 103/55 L Pulse Oximetry 99 Oxygen Delivery Method 06/03/23 04:20 06/03/23 04:25 06/03/23 04:25 Temperature Pulse Rate 89 89 Respiratory Rate 21 19 Blood Pressure 109/54 L Pulse Oximetry 99 99 Oxygen Delivery Method 06/03/23 04:30 06/03/23 04:30 06/03/23 04:35 Temperature Pulse Rate 87 Respiratory Rate 17 Blood Pressure 88/50 L 104/53 L Pulse Oximetry 95 Oxygen Delivery Method 06/03/23 04:35 06/03/23 04:40 06/03/23 04:40 Temperature Pulse Rate 89 89 Respiratory Rate 17 17 Blood Pressure 101/52 L Pulse Oximetry 99 99 Oxygen Delivery Method 06/03/23 04:45 06/03/23 04:45 06/03/23 04:50 Temperature Pulse Rate 91 H Respiratory Rate 18 Blood Pressure 108/52 L 110/55 L Pulse Oximetry 99 Oxygen Delivery Method 06/03/23 04:50 06/03/23 04:55 06/03/23 04:55 Temperature Pulse Rate 90 91 H Respiratory Rate 17 17 Blood Pressure 110/55 L Pulse Oximetry 100 99 Oxygen Delivery Method 06/03/23 05:00 06/03/23 05:00 06/03/23 05:05 Temperature Pulse Rate 91 H 90 Respiratory Rate 18 19 Blood Pressure 104/52 L Pulse Oximetry 98 97 Oxygen Delivery Method 06/03/23 05:05 06/03/23 05:10 06/03/23 05:10 Temperature Pulse Rate 91 H Respiratory Rate 19 Blood Pressure 102/51 L 115/54 L Pulse Oximetry 97 Oxygen Delivery Method 06/03/23 05:15 06/03/23 05:15 06/03/23 05:20 Temperature Pulse Rate 91 H Respiratory Rate 18 Blood Pressure 112/53 L 104/55 L Pulse Oximetry 99 Oxygen Delivery Method 06/03/23 05:20 06/03/23 05:25 06/03/23 05:25 Temperature Pulse Rate 91 H 91 H Respiratory Rate 19 19 Blood Pressure 98/54 L Pulse Oximetry 99 100 Oxygen Delivery Method 06/03/23 05:30 06/03/23 05:30 06/03/23 05:35 Temperature Pulse Rate 91 H 156 H Respiratory Rate 18 20 Blood Pressure 104/55 L Pulse Oximetry 100 91 Oxygen Delivery Method 06/03/23 05:39 06/03/23 05:39 06/03/23 05:40 Temperature Pulse Rate 154 H Respiratory Rate 19 Blood Pressure 109/64 104/67 Pulse Oximetry 93 Oxygen Delivery Method 06/03/23 05:40 06/03/23 05:45 06/03/23 05:45 Temperature Pulse Rate 154 H 143 H Respiratory Rate 19 18 Blood Pressure 98/55 L Pulse Oximetry 91 98 Oxygen Delivery Method 06/03/23 05:50 06/03/23 05:50 06/03/23 05:55 Temperature Pulse Rate 167 H 154 H Respiratory Rate 18 18 Blood Pressure 97/51 L Pulse Oximetry 84 L 89 L Oxygen Delivery Method 06/03/23 05:55 06/03/23 06:00 06/03/23 06:00 Temperature Pulse Rate 166 H Respiratory Rate 18 Blood Pressure 93/59 L 95/60 Pulse Oximetry 100 Oxygen Delivery Method 06/03/23 06:05 06/03/23 06:05 06/03/23 06:10 Temperature Pulse Rate 161 H Respiratory Rate 20 Blood Pressure 100/70 92/53 L Pulse Oximetry 97 Oxygen Delivery Method 06/03/23 06:10 06/03/23 06:15 06/03/23 06:15 Temperature Pulse Rate 134 H 125 H Respiratory Rate 21 20 Blood Pressure 102/60 Pulse Oximetry 94 93 Oxygen Delivery Method 06/03/23 06:20 06/03/23 06:20 06/03/23 06:25 Temperature Pulse Rate 124 H Respiratory Rate 18 Blood Pressure 102/49 L 91/47 L Pulse Oximetry 94 Oxygen Delivery Method 06/03/23 06:25 06/03/23 06:30 06/03/23 06:30 Temperature Pulse Rate 138 H 137 H Respiratory Rate 20 20 Blood Pressure 101/47 L Pulse Oximetry 95 95 Oxygen Delivery Method 06/03/23 06:35 06/03/23 06:35 06/03/23 06:40 Temperature Pulse Rate 136 H 132 H Respiratory Rate 19 21 Blood Pressure 98/53 L Pulse Oximetry 95 95 Oxygen Delivery Method 06/03/23 06:41 06/03/23 06:41 06/03/23 06:45 Temperature Pulse Rate 141 H Respiratory Rate 19 Blood Pressure 96/61 100/55 L Pulse Oximetry 95 Oxygen Delivery Method 06/03/23 06:45 06/03/23 06:50 06/03/23 06:50 Temperature Pulse Rate 138 H 146 H Respiratory Rate 20 14 Blood Pressure 111/70 Pulse Oximetry 97 94 Oxygen Delivery Method 06/03/23 06:55 06/03/23 06:55 06/03/23 07:00 Temperature Pulse Rate 136 H 141 H Respiratory Rate 19 18 Blood Pressure 88/58 L Pulse Oximetry 97 96 Oxygen Delivery Method 06/03/23 07:00 06/03/23 07:00 06/03/23 07:05 Temperature Pulse Rate Respiratory Rate Blood Pressure 94/46 L 101/55 L Pulse Oximetry Oxygen Delivery Method Mechanical Ventilation 06/03/23 07:05 06/03/23 07:10 06/03/23 07:10 Temperature Pulse Rate 139 H 129 H Respiratory Rate 18 18 Blood Pressure 95/54 L Pulse Oximetry 96 97 Oxygen Delivery Method 06/03/23 07:15 06/03/23 07:16 06/03/23 07:16 Temperature Pulse Rate 132 H 139 H Respiratory Rate 18 20 Blood Pressure 107/48 L Pulse Oximetry 97 97 Oxygen Delivery Method 06/03/23 07:20 06/03/23 07:20 06/03/23 07:25 Temperature Pulse Rate 139 H 151 H Respiratory Rate 19 19 Blood Pressure 101/42 L Pulse Oximetry 97 97 Oxygen Delivery Method 06/03/23 07:25 06/03/23 07:30 06/03/23 07:30 Temperature Pulse Rate 145 H Respiratory Rate 18 Blood Pressure 97/51 L 93/47 L Pulse Oximetry 97 Oxygen Delivery Method 06/03/23 07:35 06/03/23 07:35 06/03/23 07:40 Temperature Pulse Rate 132 H 145 H Respiratory Rate 19 17 Blood Pressure 90/52 L Pulse Oximetry 97 97 Oxygen Delivery Method 06/03/23 07:41 06/03/23 07:41 06/03/23 07:45 Temperature Pulse Rate 144 H Respiratory Rate 18 Blood Pressure 100/63 99/71 Pulse Oximetry 96 Oxygen Delivery Method 06/03/23 07:45 06/03/23 07:50 06/03/23 07:50 Temperature Pulse Rate 140 H 147 H Respiratory Rate 19 18 Blood Pressure 98/69 Pulse Oximetry 97 97 Oxygen Delivery Method 06/03/23 07:55 06/03/23 07:55 06/03/23 08:00 Temperature Pulse Rate 125 H Respiratory Rate 19 Blood Pressure 96/55 L 99/55 L Pulse Oximetry 97 Oxygen Delivery Method 06/03/23 08:00 06/03/23 08:05 06/03/23 08:05 Temperature Pulse Rate 131 H 127 H Respiratory Rate 19 18 Blood Pressure 98/64 Pulse Oximetry 96 95 Oxygen Delivery Method 06/03/23 08:10 06/03/23 08:10 06/03/23 08:15 Temperature 98 F Pulse Rate 127 H 132 H Respiratory Rate 18 19 Blood Pressure 95/66 Pulse Oximetry 95 95 Oxygen Delivery Method 06/03/23 08:15 06/03/23 08:20 06/03/23 08:20 Temperature Pulse Rate 142 H Respiratory Rate 19 Blood Pressure 98/63 101/59 L Pulse Oximetry 95 Oxygen Delivery Method 06/03/23 08:25 06/03/23 08:25 06/03/23 08:30 Temperature Pulse Rate 149 H 149 H Respiratory Rate 19 18 Blood Pressure 79/51 L Pulse Oximetry 96 95 Oxygen Delivery Method 06/03/23 08:30 06/03/23 08:35 06/03/23 08:35 Temperature Pulse Rate 147 H Respiratory Rate 18 Blood Pressure 91/63 98/65 Pulse Oximetry 95 Oxygen Delivery Method 06/03/23 08:40 06/03/23 08:40 06/03/23 08:45 Temperature Pulse Rate 136 H 148 H Respiratory Rate 18 19 Blood Pressure 97/66 Pulse Oximetry 95 95 Oxygen Delivery Method 06/03/23 08:45 06/03/23 08:50 06/03/23 08:50 Temperature Pulse Rate 142 H Respiratory Rate 22 Blood Pressure 105/54 L 98/51 L Pulse Oximetry 96 Oxygen Delivery Method Oxygen Delivery Method Mechanical Ventilation Oxygen Flow Rate 3 Narrative Exam Narrative: lying in bed intubated, sedated ill appearing AF with RVR on monitor rates 120-140s MAP 65 Sat 93% Quality TeleICU VTE Deep Vein Thrombosis/Pulmonary Embolism Present on Admission: No Stress Ulcer Stress ulcer prophylaxis: yes Assessment & Plan Assessment & Plan narrative: ASSESSMENT/PLAN: # Septic shock from bowel perforation. S/p expiratory laparotomy. POD#1 - In the setting of recent laparoscopic abdominal hernia repair on 05/27/2023. - Now S/p exploratory laparotomy, enterectomy x 3 and temporary abdominal wall closure 06/02 - Per surgical plan - we will continue to stabilize the patient as able before return to the OR. She was deemed too unstable today (2 pressors, rapid a fib) to return for closure. - Despite 4 L fluid yesterday she remains oliguric c/f ATN - albumin bolus given this am, fluids changed to bicarb with D5w - Continue empiric IV antibiotic Zosyn pending cultures, empiric fluconazole added - On 2 vasopressors with goal to maintain MAP >65. stress dose steroids added - will continue to trend LA # Acute respiratory failure, intubated in the OR - Reviewed vent settings. FiO2 35%, 450 cc, 22 RR, PEEP 5. F/up ABG and adjust vent settings as needed. - C/w vent support per lung protective strategy, switch to volume-assist control (Keep TV <7.5 cc/kg, plat pres < 30, PaO2 60-80 mm Hg, SaO2 >92%) and c/w ABCDE bundle.. - Continue sedation with propofol gtt. and fentanyl IV pushes. Goal to maintain RASS -2 to -3, pending return to OR for abd closure -Reevaluate daily for SAT and SBT if meets criteria. # Atrial fibrillation with RVR: - Likely in the setting of sepsis and liver derangements. - TTE with preserved LV function. - On amiodarone gtt given continued RVR- Goal to maintain heart rate less than 110. - Monitor and correct electrolytes. - NOT on AC due to concern for GI bleed. # Acute on chronic blood loss anemia: - Suspected upper GI bleed secondary to Little-Marcum tear versus gastritis versus AVM versus PUD. - Eventually GI consultation when stable - Continue to trend CBC, transfuse PRBC for hemoglobin less than 7.0. - holding chemical DVT ppx for now, # Hyponatremia, likely from septic shock, possible hypovolemia - Continue IV fluid hydration, trend # FEN: Currently NPO. # Glucose: fairly controlled. C/w Accu checks Q6 hours and SSI. BG goal 140-180 # Prophylaxis: SCDs for DVT prophylaxis, PPI for stress ulcer prophylaxis # Lines/tubes: PIV, Thomas, ET tube, OG tube, CVC # CODE STATUS: Full code # Disposition: Remains in ICU Time Spent With Patient Time with patient: 50 to 69 minutes with 50% spent counseling/coordinating care
[2023-06-03] MEDS: MORPHINE 4 MG/ML INJ 6 MG IV (09:45)
--- NOTE | 2023-06-03 09:45 | PM.EICU.INT ---
Teleintensivist Intervention Date/Time Was camera activated?: No Issue(s) Addressed Issue(s): Goals of care/Code Status Other:: Hospitialist Dr. Dunbar informs me he has spoken to patients family, and they wish to extubate to comfort care. Comfort care will override prior plan. Intervention(s) Plan discussed with: Physician/provider
[2023-06-03] MEDS: MORPHINE 2 MG/ML INJ 4 MG IV ×2 (10:22→10:48)
--- NOTE | 2023-06-03 10:24 | OT.IPNOTE ---
Pt now on comfort care and therefore discharge from OT services.
[2023-06-03] MEDS: LORazepam 2 MG/ML INJ 1 MG IV ×3 (11:19→15:13)
[2023-06-03] MEDS: MORPHINE 4 MG/ML INJ IV ×6 (11:35→19:06)
--- NOTE | 2023-06-03 15:03 | P.PCN_ITS ---
Invasive Monitor Note Procedure Procedure: Central Venous Catheter Insertion Start Time: 20:40 (06/02/2023) Stop Time: 21:25 Indication: Medical Management Timeout: 21:20 Barrier Precautions Utilized: Cap, Mask, Hand Hygiene, 2% Chlorhexidine Cutaneous Antisepsis, Sterile Gloves, Sterile Gown and Maintenance of Sterile Field Vessel Utilized: Internal Jugular Vein: Right Lines Catheters Utilized: 7.5 [place] Triple Lumen Catheter Insertion Site Care: Sterile Occlusive Dressing Applied Clinical indicators suggest catheter tip resides in: Right Internal Jugular Ultrasound Ultrasound Guidance Utilized: Yes Complications Complications: none
--- NOTE | 2023-06-03 15:40 | CM.DPC ---
DCP Comfort Care Per MD, pt developed a perf of her bowels overnight and was intubated and per Surgeon pt too sick to have surgery at this time and very poor prognosis. MD met bedside with son/DPOA and explained situation and discussed GOals of Care and decision to make pt Comfort Care. Pt was extubated and appears imminent and anticipated to in the next 24-48 hours. Family has been bedside. DAWSON De La O kindly updated [facility] as they had obtained [facility] for SNF and now aware that pt likely will here in the hospital. TEE Chapman
[2023-06-03] MEDS: diazePAM 10 MG/2 ML SYRINGE 5 MG IV ×2 (16:56→18:37)
--- NOTE | 2023-06-03 17:34 | P.PN_ITS ---
Subjective Subjective Interval history: Patient required 2 pressors and bicarb drip overnigh due to worsening septic shock and acidosis. Son came in and a 20 minute conversation about GOC was had and he elected for DNR and comfort care. Orders were placed to extubate to comfort and IV morphine and ativan PRN. Exam Vital Signs (past 8 hours): Oxygen Delivery Method Mechanical Ventilation Oxygen Flow Rate 3 Narrative Exam Narrative: GEN: intubated, sedated HEENT: dry mucous membranes PULM: clear bilaterally CV: regular rate and rhythm, no murmurs ABD: post-op dressing in place NEURO: not assessed Objective Labs 06/03/23 04:32 06/03/23 04:32 Labs: Laboratory Results - last 24 hr 06/02/23 06/03/23 06/03/23 22:21 00:19 00:33 WBC RBC Hgb Hct MCV MCH MCHC RDW Plt Count Neut % (Auto) Lymph % (Auto) [place] % (Auto) Eos % (Auto) Baso % (Auto) Lymph # (Auto) [place] # (Auto) Baso # (Auto) Total Counted Seg Neutrophils % Band Neutrophils % Lymphocytes % (Manual) Monocytes % (Manual) Metamyelocytes % Neutrophils # (Manual) Nucleated RBCs Toxic Granulation RBC Morphology Polychromasia VBG pH 7.19 L* VBG pCO2 30.3 L VBG pO2 47 H VBG HCO3 12 L VBG Total CO2 13 L VBG O2 Saturation 73 VBG Base Excess -17.0 L FiO2 35 Sodium Potassium Chloride Carbon Dioxide BUN Creatinine Estimated GFR BUN/Creatinine Ratio Glucose Lactate 2.9 H 3.4 H Calcium Total Bilirubin AST ALT Alkaline Phosphatase Total Protein Albumin Globulin Albumin/Globulin Ratio 06/03/23 06/03/23 06/03/23 04:32 05:01 06:54 WBC 22.7 H D RBC 3.49 L Hgb 10.8 L Hct 32.7 L MCV 93.6 MCH 31.0 MCHC 33.1 RDW 13.2 Plt Count 204 Neut % (Auto) Not Reportable Lymph % (Auto) Not Reportable [place] % (Auto) Not Reportable Eos % (Auto) Not Reportable Baso % (Auto) Not Reportable Lymph # (Auto) Not Reportable [place] # (Auto) Not Reportable Baso # (Auto) Not Reportable Total Counted 100 Seg Neutrophils % 78.0 H Band Neutrophils % 12.0 H Lymphocytes % (Manual) 5.0 L Monocytes % (Manual) 3.0 Metamyelocytes % 2.0 H Neutrophils # (Manual) 47370 H Nucleated RBCs 2 H Toxic Granulation Present H RBC Morphology See below Polychromasia 1+ H VBG pH VBG pCO2 VBG pO2 VBG HCO3 VBG Total CO2 VBG O2 Saturation VBG Base Excess FiO2 Sodium 128 L Potassium 4.8 Chloride 106 Carbon Dioxide 14 L BUN 35 H Creatinine 0.88 Estimated GFR > 60 BUN/Creatinine Ratio 39.8 H Glucose 119 H Lactate 2.7 H 2.8 H Calcium 7.4 L Total Bilirubin 0.8 AST 32 ALT 14 Alkaline Phosphatase 60 Total Protein 4.1 L Albumin 1.7 L Globulin 2.4 Albumin/Globulin Ratio 0.7 L PFSH Medical History Scoliosis Glaucoma Depression Qvekikd-Cyuic-Bgajx disease Colon polyps Barretts esophagus Surgical History Hx of hernia repair (07/20/22) Hx of hernia repair (05/18/22) Status post endoscopy Status post colonoscopy History of knee replacement History of knee replacement Status post cholecystectomy Status post hernia repair (08/11/89) Status post hysterectomy Family History Father Heart disease Hypertension High cholesterol Stomach cancer Stroke Grandfather CVA (cerebral infarction) Mother Cancer of breast Social History marital status: household members: family and none lives independently: Yes education level: master's degree occupational status: other Smoking Status: Current every day smoker alcohol intake: current Assessment & Plan Assessment & Plan narrative: Patient is now comfort care. # acute bowel perforation At approx 1600 on 06/02 I was called to the room due to increased abd pain, distention. Upon arrival there was stool leaking from periumbilical incision. Left flank had increased swelling. Vitals unchanged from prior but patient is mod distress from abd pain. Stat CT w/ contrast ordered which showed prior free air in abdomen but increased. Gen surg called stat and patient was taken to OR for ex lap due to likely bowel perforation. In OR found to have aniceto feculent peritonitis and defect was found in transverse colon. She was brought back to ICU vented and continued to worsen requiring multiple pressors. Spoke with son Elliot about poor prognosis and he elected for DNR and comfort care. 1. Acute nausea and vomiting suspect secondary to ileus/constipation secondary to recent hernia repair -had hernia repair recently -CT scan shows free air, per surgery and radiology this is expected for laparoscopic repair yesterday -CT also noted distended stomach and stool in colon -surgery consulted, suspect possible ileus/constipation as worsening symptoms -ordered enema/suppository, continue aggressive laxative therapies with bisacodyl, miralax, colace, along with enemas. Ordered methylnaltrexone. Consider disimpaction if no resolution. 2. Acute vomiting of blood, resolved -suspect secondary radha keith tear -trend hemoglobin closely, has been stable thus far. No plan for endoscopy -avoid anticoagulants for now -PPI BID IV ordered 3. Paroxysmal afib -new diagnosis -not in afib on admission, but intermittently goes into afib with no seeming response to medications. -keep on tele -suspect secondary to above ileus, distension and pain. Suspect this will improve with bowel movements and has not responded to medications given thus far. Gave digoxin 250 mcg q6 hr then put on daily 125mcg. HR controlled. -magnesium low, potassium slightly low, ordered replacement -continue metoprolol XL 25mg BID -ordered ECHO with some diastolic dysfunction, but no valve abnormalities and normal EF. -no anticoagulation for now given hematemesis on admit, can likely start on discharge. 4. Charcot jacobo tooth, neuropathy -chronic, at baseline 5. Hyponatremia - likely secondary to hypovolemia - continue IV fluids for now, with caution due to rapid rate. Code: Full Surrogate: Son Dispo: Comfort care. Passing is imminent. Quality VTE Deep Vein Thrombosis/Pulmonary Embolism Present on Admission: No
[2023-06-04] VITALS (99 sets, daily range): BP systolic 67–105; BP diastolic 41–50; PULSE 114–150; TEMP 36.7; O2SAT 90–96
[2023-06-04] MEDS: MORPHINE 4 MG/ML INJ IV ×4 (05:23→17:58)
--- NOTE | 2023-06-04 08:02 | PM.PN.1 ---
Subjective Subjective Interval history: 72-year-old female with primary tooth, Batista's esophagus, and recent open hernia repair who was admitted May 28 with abdominal pain, nausea, vomiting, and hematemesis. She had complications during her hospital stay with AFib with RVR, subsequently developed a perforated bowel with feculent peritonitis. She underwent an exploratory laparotomy with enterectomy x3, cholecystectomy, and temporary abdominal closure on June 02. She remained intubated postoperatively and requiring 2 pressors and an amiodarone drip. On June 03, she transitioned to comfort care. She has required 28 mg of IV morphine in the last 21 hours. She has received 2 doses of diazepam 5 mg IV (both were given last evening). Son is at bedside and is very tearful. Exam Vital Signs (past 8 hours): Oxygen Delivery Method Mechanical Ventilation Oxygen Flow Rate 3 Narrative Exam Narrative: GEN: Acutely ill-appearing elderly female, obtunded, no acute distress HEENT:NC, Face symmetric CHEST: Respiratory excursions symmetric, hoarse but CTAB CV: Tachycardic, no murmurs ABD: Firm, wound VAC sponge in place, absent bowel tone EXTR: warm, well perfused, no C/C/E SKIN: warm and dry, no rash NEURO: Obtunded Objective Labs 06/03/23 04:32 06/03/23 04:32 PFSH Medical History Scoliosis Glaucoma Depression Gzwroaa-Rpakm-Hwqfp disease Colon polyps Barretts esophagus Surgical History Hx of hernia repair (07/20/22) Hx of hernia repair (05/18/22) Status post endoscopy Status post colonoscopy History of knee replacement History of knee replacement Status post cholecystectomy Status post hernia repair (08/11/89) Status post hysterectomy Family History Father Heart disease Hypertension High cholesterol Stomach cancer Stroke Grandfather CVA (cerebral infarction) Mother Cancer of breast Social History marital status: household members: family and none lives independently: Yes education level: master's degree occupational status: other Smoking Status: Current every day smoker alcohol intake: current Assessment & Plan Assessment & Plan narrative: 1. Perforated bowel with feculent peritonitis, postop from exploratory laparotomy, enterectomy x3, colectomy, and temporary abdominal closure 2. Acute hypoxic respiratory failure 3. Atrial fibrillation with RVR 4. Ldahehb-Gstsv-Uiuyq syndrome Patient continues to decline. Remains on comfort directed care. Will transition to a morphine [employer] TALEO MANAGER to obtain more consistent pain relief. Discussed with patient's son who is at bedside. Encouraged him to reach out to hospice of [facility] for bereavement services after she expires. I do not expect her to today, but anticipate her prognosis to be 24 to 36 hours Quality VTE Deep Vein Thrombosis/Pulmonary Embolism Present on Admission: No
--- NOTE | 2023-06-04 08:38 | PT.IPTN ---
Current Diagnoses Postprocedural intestinal obstruction, unspecified as to partial versus complete (05/30/23) Hematemesis (05/30/23) Acute abdomen (05/30/23) Left lower quadrant pain (05/30/23) Unspecified abdominal pain (05/30/23) Surgery Performed Operation Date: 06/02/23 18:00 Actual Procedures p Exploratory Laparotomy GEN Mitzy Fajardo MD Physical Therapy Treatment Note M2 PT-IP Current Condition Start: 05/30/23 14:37 Freq: NEEDED Status: Active Protocol: Document 06/01/23 10:37 AB (Rec: 06/01/23 12:45 AB [id number]) Physical Therapy Current Condition Current Condition Evaluation Date 06/01/23 Treatment Diagnosis ileus s/p L inguinal hernia repair; afib; difficulty in walking Onset Date 05/30/23 M3 PT-IP Subjective Start: 05/30/23 14:37 Freq: NEEDED Status: Active Protocol: Document 06/04/23 08:37 AB (Rec: 06/04/23 08:38 AB [email or web address]) Subjective Physical Therapy Visit Type Type Administrative Note Notes Pt on comfort care per rounds meeting and to d/c PT M7 PT-IP Assessment and Plan Start: 05/30/23 14:37 Freq: NEEDED Status: Active Protocol: Document 06/04/23 08:37 AB (Rec: 06/04/23 08:38 AB [email or web address]) PT Summary Assessment and Plan Frequency of Treatment Frequency Of Treatment Discharge
[2023-06-04] MEDS: SODIUM CHLORIDE 0.9% FLUSH 10 ML IV ×2 (09:03→22:19)
[2023-06-04] MEDS: MORPHINE 50 MG in DEXTROSE 5 % IN WATER 45 ML IV (09:20)
--- NOTE | 2023-06-04 15:39 | CM.DPC ---
DCP Comfort Measures Per MD, pt has some stable respirations but remains quite tachy and anticipated to overnight. MD had discussion with son and family bedside and provided [facility] bereavement resources and son remains quite tearful today but estranged Uncle to arrive bedside today as well. Plan: SW to follow for plan of pt to here likely overnight and to follow up with family to confirm they are aware of the bereavement resources. TEE Chapman
--- NOTE | 2023-06-04 19:25 | PC.NURSE ---
Pt resting comfortably, morphine titrated to relieve pain and dyspnea. Pt turned frequently and bathed today. Family at bedside.
[2023-06-04] MEDS: MORPHINE 50 MG in DEXTROSE 5 % IN WATER 45 ML 7 MG IV (20:30)
--- NOTE | 2023-06-04 20:48 | PC.NURSE ---
Pt. is unresponsive, on comfort care with Morphine gtt infusing at 7 mg/hr.
[2023-06-05] MEDS: MORPHINE 50 MG in DEXTROSE 5 % IN WATER 45 ML IV (05:51)
[2023-06-05 08:36] VITALS: TEMP 36.9
--- NOTE | 2023-06-05 16:05 | PM.DDS.1 ---
Discharge Summary History of Illness Narrative: Ms. Blackwell is a 72W with PMH CMT, barrets esophagus, who presents with abdominal pain, nauea, vomiting/hematemesis. Yesterday she had an outpatient laparascopic left inguinal hernia repair. Last night she developed nause and vomiting. No bowel movement, no diarrhea. She initially was vomiting bile appearing fluid, but mostly retching, and then she had blood noted in her vomit which caused her to come to the hospital. She has bloated and distended belly, she is belching frequently. In the ED workup was done, vitals notable for afebrile, heart rate intermittently tachycardic and in afib and intermittently rate controlled and in sinus. Labs and imaging reviewed by me and notable for WBC 11.2, Hgb 12.0-> 11.7. Na 129, creatinine 0.49. CT notable for free air, distended stomach, large amount of stool in colon. She was ordered for pain medications, nausea medications, PPI, and beta-yesi. Surgery was consulted and stated that CT findings of air were expected post-op. She was admitted for further treatment. Hospital Course Date of Admission: 05/30/23 15:30 Primary care provider: Inna Gonzalez MD Consults: 05/28/23 17:00 Consult to General Surgery Routine Comment: Consulting Provider: Allen Fajardo Reason for consultation: vomiting after abdominal surgery Has provider been notified: Yes 05/30/23 14:11 Consult to Occupational Therapy Evaluate & Treat Comment: Physician Instructions: Evaluate and treat 06/02/23 17:43 Consult to Tele-tipping machine operator Routine Comment: Consulting Provider: Jean Claude Tele-intensivists Reason for consultation: Speech Correction Consultant services Discharge Diagnosis: 1. Perforated bowel with feculent peritonitis, postop from exploratory laparotomy, enterectomy x3, colectomy, and temporary abdominal closure 2. Acute hypoxic respiratory failure 3. Atrial fibrillation with RVR 4. Rdwfzpg-Exkhw-Nrbbk syndrome Hospital Course: Admitted for constipation and new-Afib RVR following inguinal hernia repair surgery. A-fib finally was controlled with digoxin. Patient unable to have BM for about a week despite multiple laxatives and enemas. On 06/02 at approx 1600 patient had stool leaking from periumbilical incision and was rushed to the OR where a perforated bowel was found with aniceto feculent peritonitis present. This was washed out and bowel was resected. She was kept intubated post-op with plan to return to OR for further surgery, however she developed septic shock and required multiple pressors and bicarb drip. The son was updated on her very poor prognosis. The decision was made by son to switch to DNR and comfort care. She was extubated and kept comfortable until she peacefully on 06/05 at 1530 with family at the bedside. Objective Labs 06/03/23 04:32 06/03/23 04:32
--- NOTE | 2023-06-05 16:05 | PC.NURSE ---
Addendum entered by Ban Iyer R.N. 06/05/23 18:46: End of life care completed for patient, midline/PIV discontinued, villarreal discontinued. Eyes prepped with saline and taped shut, bed at 30 degrees. Patient cleaned and changed for fruit picker by chosen home. Patient belongings packed and taken by patient's son. Original Note: Event Note Patient passed at approximately 1530, dual nurse confirmed and provider at bedside. Morphine gtt turned of and discontinued. Son at bedside, will update this RN on home plans.
--- NOTE | 2023-06-05 16:32 | CM.DPNOTE ---
DCP Note Per chart review, pt this afternoon. Per RN note, son at bedside. CM team will continue to follow as needed for emotional support with family. TEE Guillermo
--- NOTE | 2023-06-05 23:07 | PC.NURSE ---
1930 Spoke with organ donation cash posting representative and pt released - not an organ doner candidate. [id number] pt body released to home.
== END 2023-06-05 23:00 | disposition expired | DRG 329 ==
LOC: ED 16:00 → AC 05-29 13:04 → ICU 05-31 01:33
PROVIDERS: Internal Medicine; Internal Medicine Critical Care Medicine; Internal Medicine Pulmonary Disease; Student in an Organized Health Care Education/Training Program; Surgery; Admitting Provider Internal Medicine; Emergency Provider Emergency Medicine; PCP Family Medicine; Referring Provider Emergency Medicine; Visit Provider Internal Medicine
PROC: 0DN80ZZ Release Small Intestine, Open Approach (ICD-10-PCS; CPT 49000; principal; 2023-06-02 18:00)
DX: K91.30 Postprocedural intestinal obstruction, unspecified as to partial versus complete (principal); A41.9 Sepsis, unspecified organism; J96.01 Acute respiratory failure with hypoxia; K22.6 Gastro-esophageal laceration-hemorrhage syndrome; R65.21 Severe sepsis with septic shock; K65.8 Other peritonitis; K63.1 Perforation of intestine (nontraumatic); E87.1 Hypo-osmolality and hyponatremia; D62 Acute posthemorrhagic anemia; K40.91 Unilateral inguinal hernia, without obstruction or gangrene, recurrent; N73.6 Female pelvic peritoneal adhesions (postinfective); I48.0 Paroxysmal atrial fibrillation; G60.0 Hereditary motor and sensory neuropathy; F17.210 Nicotine dependence, cigarettes, uncomplicated; Z51.5 Encounter for palliative care; Z66 Do not resuscitate
CPT/HCPCS: 36415; 36592; 71045; 74177; 80048; 80053; 82805; 82962; 83605; 83690; 83735; 84443; 84484; 85007; 85014; 85018; 85025; 85027; 85610; 85730; 86850; 86900; 86901; 87040; 87797; 93005; 93306; 94002; 94003; 94762; 94799; 96374; 96375; 97163; 97167; 97530; 99284; 99285; G0378; C9113; J0131; J0282; J0330; J0690; J1100; J1160; J1170; J1885; J2060; J2270; J2405; J2543; J2704; J3010; J3360; J3475; Q9967